=== PATIENT | male | born 1940 | race Caucasian/White ===

== ENCOUNTER 2018-06-07 19:09 | Inpatient (IN) | payer MEDICARE, BC ==
[~2018-06-07] VITALS: Ht 177.8 cm; Wt 109.9 kg
--- NOTE | 2018-06-07 19:19 | ED.ADGEN ---
Past History Past Medical History: Dementia, Depression, Hypertension, Prostatitis, Other Adult General Chief Complaint Chief Complaint "...They sent me over to get checked out..." HPI HPI Patient is a 78 year old male from [facility] who presents with hx of mental status changes. Pt. has been a resident of [facility] since 10-13-17. Pt. has become very verbally abusive to staff and other residents. Pt. has been hitting staff, throwing plates at staff. Disruptive behavior has become more severe since Apr. Pt. has hx of Parkinson, ploy neuropathy, MDD, Dementia( Possible Lewy Body), HTN, and depression. Pt. has hx Prostate enlargement, chronic pain, multiple falls with rib fractures. Hx. of CHF diastolic dysfunction. Hx. Rt. hip fx. and gait dysfunction. Pt. seems to be having delusions . Pt. Primary is Dr. Medina, Neurologist Dr. Guillory. Review of Systems Review of Systems No current complaints Constitutional: Denies fever or chills [] Eyes: Denies change in visual acuity, redness, or eye pain [] HENT: Denies nasal congestion or sore throat [] Respiratory: Denies cough or shortness of breath [] Cardiovascular: No additional information not addressed in HPI [] GI: Denies abdominal pain, nausea, vomiting, bloody stools or diarrhea [] : Denies dysuria or hematuria [] Musculoskeletal: Denies back pain or joint pain [] Integument: Denies rash or skin lesions [] Neurologic: Denies headache, focal weakness or sensory changes [] Endocrine: Denies polyuria or polydipsia [] All other systems were reviewed and found to be within normal limits, except as documented in this note. Family History Family History Not currently available. Current Medications Current Medications Current Medications Medications (Trade) Dose Ordered Sig/Uma Start Time Stop Time Status Last Admin Dose Admin Lactated Ringer's 1,000 ml @ 100 mls/hr Q10H 06/07/18 19:28 06/08/18 05:27 DC Allergies Allergies Allergies Coded Allergies Type Severity Reaction Last Updated Verified No Known Drug Allergies 06/07/18 No Physical Exam Physical Exam Constitutional: , no acute distress, non-toxic appearance. [] HENT: Normocephalic, atraumatic, bilateral external ears normal, oropharynx moist, no oral exudates, nose normal. [] Eyes: PERRLA, EOMI, conjunctiva normal, no discharge. [] Neck: Normal range of motion, no tenderness, supple, no stridor. [] Cardiovascular:Bradycardia Heart rate regular rhythm, no murmur [] Lungs & Thorax: Bilateral breath sounds equal at apex with basilar crackles on auscultation [] Abdomen: Bowel sounds normal, soft, no tenderness, no masses, no pulsatile masses. [Obese. ] Skin: Warm, dry, no erythema, no rash. [] Back: No tenderness, no CVA tenderness. [] Extremities: No tenderness, no cyanosis, no clubbing, ROM intact, ankle edema. [ ] L.t hip scar. Neurologic: Alert and oriented X 3, moves all ext. on request,decrease plantar sensory , no focal deficits noted. []Tremor. Psychologic: Affect anxious, judgement limited insight, mood depressed. At times angry demeanor. Current Patient Data Vital Signs Vital Signs Date Time Temp Pulse Resp B/P (MAP) Pulse Ox O2 Delivery O2 Flow Rate FiO2 06/07/18 23:20 66 18 137/66 (89) 95 Room Air Lab Results Laboratory Tests Test 06/07/18 20:18 06/07/18 20:51 White Blood Count 8.1 x10^3/uL (4.0-11.0) Red Blood Count 3.84 x10^6/uL (4.30-5.70) L Hemoglobin 13.0 g/dL (13.0-17.5) Hematocrit 37.8 % (39.0-53.0) L Mean Corpuscular Volume 98 fL (79-100) Mean Corpuscular Hemoglobin 34 pg (25-35) Mean Corpuscular Hemoglobin Concent 35 g/dL (31-37) Red Cell Distribution Width 14.7 % (11.5-14.5) H Platelet Count 235 x10^3/uL (140-400) Neutrophils (%) (Auto) 68 % (31-73) Lymphocytes (%) (Auto) 22 % (24-48) L Monocytes (%) (Auto) 7 % (0-9) Eosinophils (%) (Auto) 3 % (0-3) Basophils (%) (Auto) 1 % (0-3) Neutrophils # (Auto) 5.5 x10^3uL (1.8-7.7) Lymphocytes # (Auto) 1.8 x10^3/uL (1.0-4.8) Monocytes # (Auto) 0.6 x10^3/uL (0.0-1.1) Eosinophils # (Auto) 0.2 x10^3/uL (0.0-0.7) Basophils # (Auto) 0.1 x10^3/uL (0.0-0.2) Erythrocyte Sedimentation Rate 6 (0-15) Prothrombin Time 10.4 SEC (9.4-11.4) Prothrombin Time INR 1.0 (0.9-1.1) PTT 25 SEC (23-33) Sodium Level 140 mmol/L (136-145) Potassium Level 3.9 mmol/L (3.5-5.1) Chloride Level 103 mmol/L (98-107) Carbon Dioxide Level 29 mmol/L (21-32) Anion Gap 8 (6-14) Blood Urea Nitrogen 19 mg/dL (8-26) Creatinine 0.8 mg/dL (0.7-1.3) Estimated GFR (Cockcroft-Gault) 93.3 Glucose Level 121 mg/dL (70-99) H Calcium Level 9.0 mg/dL (8.5-10.1) Magnesium Level 2.0 mg/dL (1.8-2.4) Total Bilirubin 0.3 mg/dL (0.2-1.0) Direct Bilirubin < 0.1 mg/dL (0.0-0.2) Aspartate Amino Transferase (AST) 17 U/L (15-37) Alanine Aminotransferase (ALT) 9 U/L (16-63) L Alkaline Phosphatase 83 U/L (46-116) Creatine Kinase 47 U/L (39-308) Troponin I Quantitative < 0.017 ng/mL (0-0.055) HU-Bza-S-Type Natriuretic Peptide 186 pg/mL (0-449) Total Protein 6.3 g/dL (6.4-8.2) L Albumin 3.2 g/dL (3.4-5.0) L Lipase 90 U/L (73-393) Urine Collection Type Unknown Urine Color Yellow Urine Clarity Clear Urine pH 7.0 Urine Specific Brush 1.020 Urine Protein Neg (NEG-TRACE) Urine Glucose (UA) Neg mg/dL (NEG) Urine Ketones (Stick) Neg mg/dL (NEG) Urine Blood Neg (NEG) Urine Nitrite Neg (NEG) Urine Bilirubin Neg (NEG) Urine Urobilinogen Dipstick 1 mg/dL (0.2 mg/dL) Urine Leukocyte Esterase Neg (NEG) Urine RBC Occ /HPF (0-2) Urine WBC Occ /HPF (0-4) Urine Squamous Epithelial Cells Occ /LPF Urine Renal Epithelial Cells Occ /LPF Urine Bacteria Few /HPF (0-FEW) Urine Opiates Screen Neg (NEG) Urine Methadone Screen Neg (NEG) Urine Barbiturates Neg (NEG) Urine Phencyclidine Screen Neg (NEG) Urine Amphetamine/Methamphetamine Neg (NEG) Urine Benzodiazepines Screen Neg (NEG) Urine Cocaine Screen Neg (NEG) Urine Cannabinoids Screen Neg (NEG) Urine Ethyl Alcohol Neg (NEG) EKG EKG My interpretation EKG shows a sinus rhythm at 65. An leftward axis changes. No findings acute STEMI of contralateral changes.[] Radiology/Procedures Radiology/Procedures My interpretation of chest x-ray shows chest x-ray shows borderline cardiomegaly. Findings of old rib fractures. No free air in the diaphragm. My interpretation of CT of head shows no shift, mass, edema, bleed,. Does have chronic changes.[] Course & Med Decision Making Course & Med Decision Making Pertinent Labs and Imaging studies reviewed. (See chart for details) Pt. to be admitted to Dr. Lagunas and Consult to Dr. Flannery- for medical issues. [] Final Impression Final Impression 1. Mental status change[] 2. Aggressive behavior 3. Diabetes 4. Dementia 5. Polyneuropathy 6. Parkinson's 7. History of urinary retention 8. Hx. Frequent falls Dragon Disclaimer Dragon Disclaimer This electronic medical record was generated, in whole or in part, using a voice recognition dictation system. JORY BHATIA MD Jun 07, 2018 19:18
[2018-06-07] MEDS: IV RINGERS SOLUTION,LACTATED 1,000 ML IV SCH ×2 (19:28→22:27)
--- NOTE | 2018-06-07 19:38 | EKG ---
[address] [address] Test Date: 2018-06-07 Test Time: 19:18:52 Pat Name: TERA MARQUEZ Department: Room: Gender: M High Reach Operator: : 1940 Requested By: JORY BHATIA Order Number: [id number] Reading MD: Dimitrios Martel Measurements Intervals Ewen Rate: 65 P: 48 NJ: 174 QRS: -28 QRSD: 100 T: 54 QT: 396 QTc: 413 Interpretive Statements SINUS RHYTHM LEFTWARD AXIS Electronically Signed On 06-08-2018 14:31:08 [employer]INE [employer] by Dimitrios Martel
--- NOTE | 2018-06-07 20:14 | RAD ---
CT HEAD WO CONTRAST dated 06/07/2018 7:55 PM Indication: Altered mental status.AMS. Comparison: No comparison is available. Technique: Contiguous axial imaging the head was performed from skull base to vertex. No contrast administered. One or more of the following individualized dose reduction techniques were utilized for this examination: 1. Automated exposure control 2. Adjustment of the mA and/or kV according to patient size 3. Use of iterative reconstruction technique Findings: Ventricles and sulci are mildly prominent for age. No midline shift or mass effect. Mild patchy low density in the deep/subcortical periventricular white matter. No hemorrhage or extra axial collection. Posterior fossa and brainstem unremarkable. Visualized paranasal sinuses and mastoid air cells are clear. No apparent calvarial abnormality. IMPRESSION: 1. No evidence of acute intracranial hemorrhage or mass. 2. Mild chronic small vessel ischemic changes and atrophy. Electronically signed by: Angelito Moody MD (06/07/2018 8:11 PM) [facility]
--- NOTE | 2018-06-07 20:15 | RAD ---
PORTABLE CHEST 1V dated 06/07/2018 7:03 PM. Comparison: None. Clinical Indication: Altered mental status. Findings: Single upright portable exam performed. Heart and mediastinal contours are within normal limits. Lungs are clear without focal consolidation. Vascular interstitium within normal limits. No pleural effusion or pneumothorax. Old healed rib fractures on the left. Impression: No acute radiographic abnormality. Electronically signed by: Angelito Moody MD (06/07/2018 8:12 PM) [facility]
[2018-06-07 20:37] LABS: BASO # 0.1 x10^3/uL (0.0-0.2); BASO % 1 % (0-3); EOS # 0.2 x10^3/uL (0.0-0.7); EOS % 3 % (0-3); HEMATOCRIT 37.8 % (39.0-53.0); LYMPH # 1.8 x10^3/uL (1.0-4.8); LYMPH % 22 % (24-48); MEAN CORPUSCULAR HEMOGLOBIN 34 pg (25-35); MEAN CORPUSCULAR HGB CONC 35 g/dL (31-37); MEAN CORPUSCULAR VOLUME 98 fL (79-100); MONO # 0.6 x10^3/uL (0.0-1.1); MONO % 7 % (0-9); NEUT # 5.5 x10^3uL (1.8-7.7); NEUT % 68 % (31-73); PLATELET COUNT 235 x10^3/uL (140-400); RED BLOOD COUNT 3.84 x10^6/uL (4.30-5.70); RED CELL DISTRIBUTION WIDTH 14.7 % (11.5-14.5); WHITE BLOOD COUNT 8.1 x10^3/uL (4.0-11.0)
[2018-06-07 20:59] LABS: ALBUMIN 3.2 g/dL (3.4-5.0); ALK PHOS 83 U/L (46-116); ALT (SGPT) 9 U/L (16-63); ANION GAP 8 (6-14); AST (SGOT) 17 U/L (15-37); BLOOD UREA NITROGEN 19 mg/dL (8-26); CARBON DIOXIDE 29 mmol/L (21-32); CHLORIDE 103 mmol/L (98-107); CREATININE 0.8 mg/dL (0.7-1.3); GFR 93.3; GLUCOSE 121 mg/dL (70-99); LIPASE 90 U/L (73-393); POTASSIUM 3.9 mmol/L (3.5-5.1); SODIUM 140 mmol/L (136-145); TOTAL BILIRUBIN 0.3 mg/dL (0.2-1.0); TOTAL PROTEIN 6.3 g/dL (6.4-8.2)
[2018-06-07 21:01] LABS: DIRECT BILIRUBIN < 0.1 mg/dL (0.0-0.2)
[2018-06-07 21:41] LABS: BARBITURATES NEG (NEG); BENZODIAZEPINES NEG (NEG); CANNABINOIDS NEG (NEG); COCAINE NEG (NEG); METHADONE NEG (NEG); OPIATES NEG (NEG); PHENCYCLIDINE NEG (NEG)
[2018-06-07 21:44] LABS: AMPHETAMINE/METHAMPHETAMINE NEG (NEG)
[2018-06-07 21:48] LABS: BACTERIA,URINE FEW /HPF (0-FEW); BILIRUBIN,URINE NEG (NEG); CLARITY,URINE CLEAR; COLOR,URINE YELLOW; GLUCOSE,URINE NEG (NEG); NITRITE,URINE NEG (NEG); RBC,URINE OCC /HPF (0-2); SQUAMOUS EPITHELIAL CELL,UR OCC /LPF; UROBILINOGEN,URINE 1 mg/dL (0.2 mg/dL); WBC,URINE OCC /HPF (0-4)
[2018-06-07 21:50] LABS: SEDIMENTATION RATE 6 (0-15)
[2018-06-08] MEDS ORDERED: MAGNESIUM HYDROXIDE 2,400 MG/30 ML ORAL.SUSP. PO PRN (00:30)
[2018-06-08] MEDS ORDERED: METHYL SALICYLATE/MENTHOL TOPICAL OINTMENT 29GM TUBE. TP PRN (00:30)
[2018-06-08] MEDS ORDERED: MAG HYDROX/AL HYDROX/SIMETH 30 ML ORAL.SUSP PO PRN (00:30)
[2018-06-08 00:37] VITALS: BP 151/83
[2018-06-08] MEDS ORDERED: ATOR20TA58 PO (01:05)
[2018-06-08] MEDS ORDERED: FURO-68 PO (01:05)
[2018-06-08] MEDS ORDERED: ASPI81TA50 PO (01:05)
[2018-06-08] MEDS ORDERED: GUAI473L15 PO (01:05)
[2018-06-08] MEDS ORDERED: OXYC5CAP PO (01:05)
[2018-06-08] MEDS ORDERED: NEPA3DRO OP (01:05)
[2018-06-08] MEDS ORDERED: POLY17PO5 PO ×2 (01:05)
[2018-06-08] MEDS ORDERED: CARB1TAB2 PO (01:05)
[2018-06-08] MEDS ORDERED: SPIR25TA5 PO (01:05)
[2018-06-08] MEDS ORDERED: VITA1TAB3 PO (01:05)
[2018-06-08] MEDS ORDERED: DULO60CA6 PO (01:05)
[2018-06-08] MEDS ORDERED: GABA-585 PO (01:05)
[2018-06-08] MEDS ORDERED: SENN1TAB8 PO (01:05)
[2018-06-08] MEDS ORDERED: PRED1DRO OP (01:05)
[2018-06-08] MEDS ORDERED: MULT1TAB52 PO (01:05)
[2018-06-08] MEDS ORDERED: DONE5TAB56 PO (01:05)
[2018-06-08] MEDS ORDERED: OLAN5TAB5 PO (01:05)
[2018-06-08] MEDS ORDERED: ACET500T68 PO (01:05)
[2018-06-08] MEDS ORDERED: TAMS0.4C2 PO (01:05)
[2018-06-08] MEDS ORDERED: MELO7.5T29 PO (01:05)
[2018-06-08] MEDS ORDERED: ACETAMINOPHEN 500 MG TABLET PO PRN (01:15)
[2018-06-08] MEDS ORDERED: POLYETHYLENE GLYCOL 3350 17 GM PACKET. PO PRN (01:15)
[2018-06-08 06:02] VITALS: BP 164/82
[2018-06-08 07:21] LABS: BASO % 1 % (0-3); EOS # 0.1 x10^3/uL (0.0-0.7); EOS % 2 % (0-3); HEMOGLOBIN 13.8 g/dL (13.0-17.5); LYMPH % 14 % (24-48); MEAN CORPUSCULAR HEMOGLOBIN 33 pg (25-35); MEAN CORPUSCULAR HGB CONC 34 g/dL (31-37); MEAN CORPUSCULAR VOLUME 98 fL (79-100); MONO # 0.4 x10^3/uL (0.0-1.1); MONO % 6 % (0-9); NEUT # 5.4 x10^3uL (1.8-7.7); NEUT % 77 % (31-73); PLATELET COUNT 229 x10^3/uL (140-400); RED BLOOD COUNT 4.17 x10^6/uL (4.30-5.70); RED CELL DISTRIBUTION WIDTH 14.2 % (11.5-14.5)
[2018-06-08 07:21] LABS: CALCIUM 9.5 mg/dL (8.5-10.1); CREATININE 0.9 mg/dL (0.7-1.3); GFR 81.4; POTASSIUM 4.4 mmol/L (3.5-5.1)
[2018-06-08] MEDS: TAMSULOSIN 0.4 MG CAP.ER.24H. PO SCH (10:16)
[2018-06-08] MEDS: VITAMIN B COMPLEX CAPSULE. PO SCH (10:16)
[2018-06-08] MEDS: SPIRONOLACTONE 25 MG TABLET PO SCH (10:16)
[2018-06-08] MEDS: FUROSEMIDE 40 MG TABLET PO SCH (10:16)
[2018-06-08] MEDS: SENNOSIDES/DOCUSATE 8.6/50MG TABLET. PO SCH (10:16)
[2018-06-08] MEDS: MULTIVITAMIN with MINERAL TABLET. PO SCH (10:16)
[2018-06-08] MEDS: GABAPENTIN 100 MG CAPSULE. PO SCH ×3 (10:17→19:31)
[2018-06-08] MEDS: MELOXICAM 7.5 MG TABLET PO SCH (10:17)
[2018-06-08] MEDS: ASPIRIN 81 MG TAB.CHEW PO SCH (10:17)
[2018-06-08] MEDS: DULoxetine HCL 60 MG CAPSULE.DR PO SCH (10:17)
[2018-06-08] MEDS: CARBIDOPA/LEVODOPA 25/100MG TABLET PO SCH ×4 (10:17→19:31)
[2018-06-08] MEDS: prednisoLONE ACETATE 1% OPHTH SUSPENSION 5ML BOTTLE. OS SCH ×2 (10:18→19:31)
[2018-06-08] MEDS: POLYETHYLENE GLYCOL 3350 17 GM PACKET. PO SCH (10:18)
[2018-06-08] MEDS: KETOROLAC TROMETHAMINE 0.5% OPHTH SOLUTION 3ML BOTTLE. OS SCH (10:19)
[2018-06-08 16:02] VITALS: BP 129/69
[2018-06-08 17:12] LABS: THYROXINE 4.5 ug/dL (4.5-12.0)
[2018-06-08] MEDS: ATORVASTATIN CALCIUM 20 MG TABLET PO SCH (20:02)
[2018-06-08] MEDS: DONEPEZIL HCL 5 MG TABLET. PO SCH (20:02)
[2018-06-08 21:09] LABS: HEMOGLOBIN A1C 5.4 % (4.8-5.6)
--- NOTE | 2018-06-08 23:52 | CONS ---
DATE OF CONSULTATION: 06/08/2018 REASON FOR CONSULTATION: Medical management. HISTORY OF PRESENT ILLNESS: The patient is a 78-year-old male patient, a resident at [facility], who was admitted on account of being verbally aggressive towards staff. He has begun to act out, hitting staff with a pillow, history of throwing plates, calling visitors cunt. 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 When I spoke to him this afternoon, he was very delusional, claimed that he has paid the shelter $6000 every month for the last 8 months and he has received only 3 hours' worth of physical therapy. He apparently has left hip fracture, peripheral neuropathy, and Parkinson disease and his mobility is poor. He is now wheelchair bound. He denied any pain. PAST MEDICAL HISTORY: Significant for Parkinson's disease, polyneuropathy, hypertension, hyperlipidemia, benign prostatic hypertrophy, congestive heart failure, urinary retention, and recurrent falls. PAST SURGICAL HISTORY: Significant for left hip fracture, status post open reduction and internal fixation. 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 He has major depressive disorder. ALLERGIES: He is allergic to FENTANYL. MEDICATIONS: He is currently on following medications: He is on Aricept 5 mg at bedtime, tamsulosin 0.4 mg daily, atorvastatin calcium 20 mg at bedtime, spironolactone 25 mg once a day, aspirin 81 mg once a day, meloxicam 7.5 mg once a day, oxycodone 5 mg every 6 hours as needed, Tylenol 500 mg every 6 hours, gabapentin 100 mg p.o. t.i.d., duloxetine for Cymbalta 60 mg p.o. daily, olanzapine mg at bedtime, carbidopa/levodopa for Sinemet 25/100 one tablet 4 times a day, furosemide for Lasix 40 mg daily. He is on guaifenesin and codeine phosphate 2 tablets every 6 hours, prednisolone acetate, Pred Forte 1 drop to both eyes twice a day. He is on nepafenac for Nevanac 1 drop to both eyes daily, polyethylene glycol 17 grams daily every 48 hours, polyethylene glycol as needed, Senna-S 1 tablet daily, vitamin B complex 1 tablet once a day, multivitamin 1 tablet once a day. FAMILY HISTORY: Unremarkable. SOCIAL HISTORY: He is apparently a resident at [facility] in [place]. He apparently does not smoke, drink alcohol, or use any recreational drugs. REVIEW OF SYSTEMS: As per history of present illness. PHYSICAL EXAMINATION GENERAL: When I examined him, he was sitting comfortably in his wheelchair, in no apparent respiratory distress. He was slightly pale, but no jaundice, cyanosis, or thyromegaly. No jugular venous distension. No limb edema. VITAL SIGNS: His heart rate was 59, blood pressure was 164/82, his temperature was 97.6, respiratory rate was 18, and oxygen saturation was 98%. HEAD, EYES, EARS, NOSE, AND THROAT: Showed he is normocephalic, atraumatic. NECK: Supple. HEART: Showed normal first and second sounds. No gallop, rub, or murmur. CHEST: Clear to auscultation. No crepitation or rhonchi. ABDOMEN: Distended, soft, nontender. No guarding or rigidity. No organomegaly. All hernial orifice intact. Bowel sounds normal. NEUROLOGIC: He is awake, alert, confused. All his cranial nerves are intact. He is able to move his upper extremities to much good extent than lower extremities. He is mostly bedbound, chair bound. He has Apoorva lift. LABORATORY DATA: On admission showed a white cell count of 7000, hemoglobin 13.8, hematocrit 41, MCV 98, and platelet count 229,000. His chemistry showed a serum sodium 140, potassium 3.9, chloride 103, bicarbonate 29, anion gap of 8, BUN 19, creatinine 0.8, estimated GFR was 93 mL per minute, his glucose was 121, calcium was 9, magnesium 2. Total bilirubin, AST, ALT, alkaline phosphatase were normal. His CK was 47. His total protein was 6.3, albumin 3.2. His prothrombin time was 10.4, INR of 1, aPTT was 25. Urinalysis was essentially unremarkable. The urine was negative for nitrite, leukocyte esterase. There are no rbc's, no wbc's, and no bacteria. His toxic screen was essentially negative. CT scan of the head showed that the ventricles and sulci are mildly prominent for age. No midline shift or mass effect, mild patchy low density in the deep subcortical periventricular white matter, no hemorrhage or extra-axial collection. Posterior fossa and brainstem are unremarkable. The visualized paranasal sinuses and mastoid air cells are clear, no apparent calvarial abnormality. His chest x-ray showed that the heart and mediastinum contours are within normal limits. Lungs are clear without focal consolidation, vascular interstitium within normal limits. There is no pleural effusion or pneumothorax. Old healed rib fractures on the left side. IMPRESSION: In summary, this is a 78-year-old male patient, a resident at [facility] who was admitted on account of being verbally aggressive towards staff, has begun to act out, hitting staff with a pillow, history of throwing plates and calling visitor . 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 He has multiple medical problems including hypertension, hyperlipidemia, congestive heart failure, Parkinson's disease, and polyneuropathy. 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 He is mostly bedbound, chair bound. He has a Apoorva lift. He apparently has severe peripheral neuropathy, Parkinson's disease as well as left hip fracture. All his lab works are within acceptable range, and all in all, he is medically stable. I obviously will continue with all his current medication. We will order PT, OT and consult Dr. Robertson as he might require adjustment of his anti-parkinsonian medication to assist with to improve his mobility. DONNA SENA MD DR: ANJELICA/yovani JOB#: [id number] / [id number]
--- NOTE | 2018-06-09 02:33 | PSYEV ---
DATE OF SERVICE: 06/08/2018 REASON FOR ADMISSION: This is a 78-year-old male who was admitted to unit [facility] from [place], [place], because of increased behavior problems, verbally aggressive towards the staff, also threatening to staff, hitting one of the staff with a pillow, throwing plates, and verbally abusive towards the staff. The patient denies that he has any problems. CHIEF COMPLAINT: "My and my son sent me here and I should not be here, and I should be going home. They are trying to keep me in the shelter to make money and I do not trust anyone." HISTORY OF PRESENT ILLNESS: According to the information available, he has been diagnosed with dementia with Lewy body disease, also depression and currently is living with his . Apparently, the patient has been seeing a neurologist, had placed him in treatment for his dementia. The patient states he has been very successful. He worked for a [employer] company, retired in 1997 and has been for 55 years and has 2 children. The patient apparently had a full workup in the past including CT head, which are all within normal limits except for cerebral atrophy and microvascular changes. The patient denies of any falls. The patient is fairly heavy set and he needs Apoorva lift. The patient since admission has been demanding minimizing his problems. When he was asked about his problems, he becomes very paranoid and he thinks he is a part of the plot to send him back to the shelter where he has to pay $6000 a month. The patient feels it is a setup for the whole system to make money out of him. The patient had showed poor concept of time. He did not know how many days he was here. PAST PSYCHIATRIC HISTORY: The patient is unable to give much information. Apparently, he has been seeing a neurologist. Apparently, he did make some changes recently. He has been diagnosed with the neurocognitive disorder, most likely Lewy body Type. PAST MEDICAL HISTORY: The patient has Parkinson's disease, polyneuropathy, hypertension. CURRENT MEDICATIONS: Include Carbidopa/Levodopa 25-100 mg 4 times a day, Aricept 5 mg at night, Cymbalta 60 mg daily, Lasix 40 mg daily, gabapentin 100 mg t.i.d. He is also on meloxicam 7.5 mg daily, olanzapine 5 mg at night, prednisone acetate drops b.i.d, spironolactone 25 mg daily, tamsulosin 0.4 mg q. 24 hours, vitamin B complex. ALLERGIES: THE PATIENT IS ALLERGIC TO FENTANYL. ALCOHOL OR DRUG ABUSE: The patient admits to drinking socially. Denies of any alcoholism. Denies of any other addictions. PSYCHOSOCIAL HISTORY: The patient is refusing to diverge much information because of his paranoia. The patient apparently has a college degree. 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 The patient states he has been for 55 years, has 2 children. The patient denies of abuse as a child. The patient is retired, currently living with his . The patient claims he has a good relationship with his two children as a boy and a girl. MENTAL STATUS EXAMINATION: The patient appeared to be of stated age, appropriately dressed, was on Broda chair, able to make eye contact. Alert, oriented to surroundings, able to make eye contact. His behavior was appropriate initially, then become very angry, paranoid after he was asked about to behavior problems that brought him here. The patient became extremely paranoid and suspicious. His speech was clear, spontaneous with normal rate and rhythm. Affect and mood showed mostly hyperverbal increased psychomotor activity, not showing much insight to his problems. The patient denies that he has any problems with his memory, he is able to achieve the correct month and the year, but he had poor concept of time, apparently came in yesterday, but he thought that he has been here for a few days. The patient is able to recall past events fairly well, but the patient has short-term memory deficits. The patient refused to participate in any testing for the mental status. The patient has difficulty with ambulation. The patient denies of any problems with sleep or appetite. The patient appears to be functioning on an average level of intelligence. STRENGTHS: In good health. Apparently, he was fully employed until he retired. Has a family, still living with his , who was supportive. WEAKNESSES: The patient is currently not accepting that he has a problem. He has problems with mood, memory mostly short term, and also behavioral issues, explosive temper, demanding, lack of insight. ADMITTING DIAGNOSES: AXIS I: 1. 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 2. Mood disorder, unspecified. 3. Impulse control disorder, not otherwise specified. AXIS II: None. AXIS III: Parkinson's disease, polyneuropathy, hypertension, obesity. INITIAL TREATMENT PLAN: The patient will be admitted to the unit. The patient will have a routine lab work. The patient will be also seen by the primary care doctor. The patient apparently had most of the test done before including CT scan of the head and it will not be repeated here. The patient will be encouraged to attend all the activities. The patient will be seen by the psychiatrist daily. The patient will continue with the current medications. LENGTH OF STAY: 7 to 10 days. XAVI HALE MD DR: Marylin JOB#: [id number] / [id number]
[2018-06-09 05:33] VITALS: BP 129/85
[2018-06-09] MEDS: VITAMIN B COMPLEX CAPSULE. PO SCH (08:28)
[2018-06-09] MEDS: SPIRONOLACTONE 25 MG TABLET PO SCH (08:28)
[2018-06-09] MEDS: ASPIRIN 81 MG TAB.CHEW PO SCH (08:28)
[2018-06-09] MEDS: DULoxetine HCL 60 MG CAPSULE.DR PO SCH (08:28)
[2018-06-09] MEDS: TAMSULOSIN 0.4 MG CAP.ER.24H. PO SCH (08:29)
[2018-06-09] MEDS: GABAPENTIN 100 MG CAPSULE. PO SCH ×3 (08:29→19:43)
[2018-06-09] MEDS: SENNOSIDES/DOCUSATE 8.6/50MG TABLET. PO SCH (08:29)
[2018-06-09] MEDS: MELOXICAM 7.5 MG TABLET PO SCH (08:29)
[2018-06-09] MEDS: FUROSEMIDE 40 MG TABLET PO SCH (08:29)
[2018-06-09] MEDS: CARBIDOPA/LEVODOPA 25/100MG TABLET PO SCH ×4 (08:29→19:43)
[2018-06-09] MEDS: MULTIVITAMIN with MINERAL TABLET. PO SCH (08:30)
[2018-06-09] MEDS: prednisoLONE ACETATE 1% OPHTH SUSPENSION 5ML BOTTLE. OS SCH ×2 (08:30→19:42)
[2018-06-09] MEDS: KETOROLAC TROMETHAMINE 0.5% OPHTH SOLUTION 3ML BOTTLE. OS SCH (08:30)
[2018-06-09 15:36] VITALS: BP 116/73
[2018-06-09] MEDS: DONEPEZIL HCL 5 MG TABLET. PO SCH (19:43)
[2018-06-09] MEDS: ATORVASTATIN CALCIUM 20 MG TABLET PO SCH (19:43)
--- NOTE | 2018-06-09 20:00 | PN ---
DATE: 06/09/2018 SUBJECTIVE: The patient was seen today, met with the staff, and chart reviewed. The patient's behavior remains the same, fluctuating symptoms, get paranoid and suspicious at times. He does not like to be questioned, tend to be very demanding. OBSERVATION: VITAL SIGNS: Temperature 97.3, blood pressure 119/85, pulse 57, respirations 24, O2 sat 94%. Slept about 7 hours last night. The patient's appetite improved. The patient is cooperative with the staff and has been on compliant with the treatment and interacting with the staff and residents. The patient's lab reviewed. The patient's hemoglobin A1c was 5.4. The patient is not having any major physical complaints at this time. CURRENT MEDICATIONS: Include Lipitor 20 mg at night, Aricept 5 mg at night, olanzapine 5 mg at night. The patient was also on gabapentin 100 mg t.i.d. He is also on carbidopa/levodopa 1 q.i.d. p.o. for Parkinson's. The patient is also on Cymbalta 60 mg daily. The patient is able to interact, able to comprehend what is going on in the surroundings. The patient also lacking insight to his problems. The patient also has episodes of confusion. ASSESSMENT: 1. 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 2. Mood disorder, unspecified. 3. Impulse control disorder, not otherwise specified. PLAN: To continue with the current treatment. XAVI HALE MD DR: JAMAL/yovani JOB#: [id number] / [id number]
[2018-06-10 05:30] VITALS: BP 135/80
[2018-06-10] MEDS: FUROSEMIDE 40 MG TABLET PO SCH (08:17)
[2018-06-10] MEDS: MELOXICAM 7.5 MG TABLET PO SCH (08:18)
[2018-06-10] MEDS: GABAPENTIN 100 MG CAPSULE. PO SCH ×3 (08:18→19:59)
[2018-06-10] MEDS: VITAMIN B COMPLEX CAPSULE. PO SCH (08:18)
[2018-06-10] MEDS: CARBIDOPA/LEVODOPA 25/100MG TABLET PO SCH ×4 (08:19→19:59)
[2018-06-10] MEDS: ASPIRIN 81 MG TAB.CHEW PO SCH (08:19)
[2018-06-10] MEDS: SENNOSIDES/DOCUSATE 8.6/50MG TABLET. PO SCH (08:19)
[2018-06-10] MEDS: SPIRONOLACTONE 25 MG TABLET PO SCH (08:19)
[2018-06-10] MEDS: MULTIVITAMIN with MINERAL TABLET. PO SCH (08:19)
[2018-06-10] MEDS: POLYETHYLENE GLYCOL 3350 17 GM PACKET. PO SCH (08:19)
[2018-06-10] MEDS: TAMSULOSIN 0.4 MG CAP.ER.24H. PO SCH (08:19)
[2018-06-10] MEDS: prednisoLONE ACETATE 1% OPHTH SUSPENSION 5ML BOTTLE. OS SCH ×2 (08:20→20:00)
[2018-06-10] MEDS: DULoxetine HCL 60 MG CAPSULE.DR PO SCH (08:20)
[2018-06-10] MEDS: KETOROLAC TROMETHAMINE 0.5% OPHTH SOLUTION 3ML BOTTLE. OS SCH (08:21)
[2018-06-10 17:09] VITALS: BP 109/72
[2018-06-10] MEDS: ATORVASTATIN CALCIUM 20 MG TABLET PO SCH (19:59)
[2018-06-10] MEDS: DONEPEZIL HCL 5 MG TABLET. PO SCH (19:59)
--- NOTE | 2018-06-10 20:22 | PN ---
DATE: 06/10/2018 SUBJECTIVE: The patient was seen today, met with the staff, chart reviewed. The patient apparently has not shown any major behavior problems as long as he is left alone, but the patient sometimes gets mixed up with his thinking, gets paranoid, not accepting that he has a problem, lacking insight. OBSERVATION: VITAL SIGNS: Temperature 97.7, blood pressure 135/80, pulse 64, respirations 20, O2 sat 94%. Slept about 7-1/2 hours last night. CURRENT MEDICATIONS: The patient's current medications include Aricept, olanzapine, gabapentin, Cymbalta in addition to carbidopa/levodopa and Lipitor. The patient is not having any side effects. ASSESSMENT: 1. 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 2. Mood disorder, unspecified. 3. Impulse control disorder, unspecified. PLAN: Continue with the current treatment. XAVI HALE MD DR: JAMAL/yovani JOB#: [id number] / [id number]
[2018-06-10] MEDS: guaiFENesin/CODEINE 100mg/10mg 5 ML LIQUID PO PRN (22:09)
[2018-06-11 06:33] VITALS: BP 143/78
[2018-06-11] MEDS: KETOROLAC TROMETHAMINE 0.5% OPHTH SOLUTION 3ML BOTTLE. OS SCH (09:02)
[2018-06-11] MEDS: ASPIRIN 81 MG TAB.CHEW PO SCH (09:02)
[2018-06-11] MEDS: DULoxetine HCL 60 MG CAPSULE.DR PO SCH (09:03)
[2018-06-11] MEDS: VITAMIN B COMPLEX CAPSULE. PO SCH (09:03)
[2018-06-11] MEDS: SPIRONOLACTONE 25 MG TABLET PO SCH (09:03)
[2018-06-11] MEDS: prednisoLONE ACETATE 1% OPHTH SUSPENSION 5ML BOTTLE. OS SCH ×2 (09:03→20:05)
[2018-06-11] MEDS: MELOXICAM 7.5 MG TABLET PO SCH (09:04)
[2018-06-11] MEDS: CARBIDOPA/LEVODOPA 25/100MG TABLET PO SCH ×4 (09:04→20:05)
[2018-06-11] MEDS: MULTIVITAMIN with MINERAL TABLET. PO SCH (09:04)
[2018-06-11] MEDS: GABAPENTIN 100 MG CAPSULE. PO SCH ×3 (09:04→20:05)
[2018-06-11] MEDS: SENNOSIDES/DOCUSATE 8.6/50MG TABLET. PO SCH (09:04)
[2018-06-11] MEDS: FUROSEMIDE 40 MG TABLET PO SCH (09:04)
[2018-06-11] MEDS: TAMSULOSIN 0.4 MG CAP.ER.24H. PO SCH (09:04)
[2018-06-11] MEDS: guaiFENesin/CODEINE 100mg/10mg 5 ML LIQUID PO PRN ×2 (09:29→21:32)
[2018-06-11] MEDS: CHOLECALCIFEROL (VITAMIN D3) 50,000 UNIT CAPSULE PO SCH (13:24)
[2018-06-11 16:11] VITALS: BP 116/65
[2018-06-11] MEDS: DONEPEZIL HCL 5 MG TABLET. PO SCH (20:05)
[2018-06-11] MEDS: ATORVASTATIN CALCIUM 20 MG TABLET PO SCH (20:24)
--- NOTE | 2018-06-12 00:33 | PN ---
DATE: 06/11/2018 SUBJECTIVE: The patient was seen today, met with the staff, chart reviewed. The patient continues to show improvement and participating in most of the activities. Pleasant, less irritable and hoffman. No explosive temper. OBSERVATION: VITAL SIGNS: Temperature 98.1, blood pressure 143/78, pulse 67, respirations 24, O2 sat 94%. Slept about 7 hours last night. The patient is not having any side effects from the medications. He is currently on Aricept, olanzapine, gabapentin, Cymbalta. The patient is also on carbidopa/ levodopa and Lipitor. ASSESSMENT: 1. 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 2. Mood disorder, unspecified. 3. Impulse control disorder, unspecified. PLAN: To continue with the treatment. XAVI HALE MD DR: JAMAL/yovani JOB#: [id number] / [id number]
[2018-06-12 05:51] VITALS: BP 163/73
[2018-06-12] MEDS: TAMSULOSIN 0.4 MG CAP.ER.24H. PO SCH (08:37)
[2018-06-12] MEDS: VITAMIN B COMPLEX CAPSULE. PO SCH (08:37)
[2018-06-12] MEDS: MULTIVITAMIN with MINERAL TABLET. PO SCH (08:37)
[2018-06-12] MEDS: GABAPENTIN 100 MG CAPSULE. PO SCH ×3 (08:37→19:46)
[2018-06-12] MEDS: SPIRONOLACTONE 25 MG TABLET PO SCH (08:37)
[2018-06-12] MEDS: POLYETHYLENE GLYCOL 3350 17 GM PACKET. PO SCH (08:37)
[2018-06-12] MEDS: FUROSEMIDE 40 MG TABLET PO SCH (08:37)
[2018-06-12] MEDS: ASPIRIN 81 MG TAB.CHEW PO SCH (08:38)
[2018-06-12] MEDS: MELOXICAM 7.5 MG TABLET PO SCH (08:38)
[2018-06-12] MEDS: SENNOSIDES/DOCUSATE 8.6/50MG TABLET. PO SCH (08:38)
[2018-06-12] MEDS: CARBIDOPA/LEVODOPA 25/100MG TABLET PO SCH ×4 (08:38→19:46)
[2018-06-12] MEDS: DULoxetine HCL 60 MG CAPSULE.DR PO SCH (08:38)
[2018-06-12] MEDS: KETOROLAC TROMETHAMINE 0.5% OPHTH SOLUTION 3ML BOTTLE. OS SCH (08:41)
[2018-06-12] MEDS: prednisoLONE ACETATE 1% OPHTH SUSPENSION 5ML BOTTLE. OS SCH ×2 (08:41→19:48)
[2018-06-12 16:04] VITALS: BP 114/76
[2018-06-12] MEDS: DONEPEZIL HCL 5 MG TABLET. PO SCH (19:46)
[2018-06-12] MEDS: ATORVASTATIN CALCIUM 20 MG TABLET PO SCH (19:48)
[2018-06-12] MEDS: guaiFENesin/CODEINE 100mg/10mg 5 ML LIQUID PO PRN (21:32)
--- NOTE | 2018-06-12 23:25 | PN ---
DATE: 06/12/2018 SUBJECTIVE: The patient was seen today, met with the staff, chart reviewed. The patient denies of any major problems. The patient has settled down, is comfortable here, not exhibiting any anger or mood swings. Staff reports no major problems. OBSERVATION: VITAL SIGNS: Temperature 97.5, blood pressure 163/73, pulse 65, respirations 20, O2 sat 94%. Slept about 5 hours last night. The patient is not having any physical complaints. MEDICATIONS: The patient's current medications include Aricept, olanzapine, gabapentin and Cymbalta. He is also on carbidopa/levodopa for Parkinson's disease. The patient denies of any major medical issues at this time and his lab reviewed. ASSESSMENT: 1. Major neurocognitive disorder, most likely Lewy-body disease. 2. Mood disorder, unspecified. 3. Impulse control disorder, unspecified. PLAN: To continue with the treatment. I will explore discharge options whether he will be going back to [facility]. XAVI HALE MD DR: JAMAL/yovani JOB#: [id number] / [id number]
[2018-06-13 05:38] VITALS: BP 154/83
[2018-06-13] MEDS: FUROSEMIDE 40 MG TABLET PO SCH (08:51)
[2018-06-13] MEDS: TAMSULOSIN 0.4 MG CAP.ER.24H. PO SCH (08:51)
[2018-06-13] MEDS: CARBIDOPA/LEVODOPA 25/100MG TABLET PO SCH ×4 (08:51→19:32)
[2018-06-13] MEDS: MELOXICAM 7.5 MG TABLET PO SCH (08:52)
[2018-06-13] MEDS: VITAMIN B COMPLEX CAPSULE. PO SCH (08:52)
[2018-06-13] MEDS: SENNOSIDES/DOCUSATE 8.6/50MG TABLET. PO SCH (08:52)
[2018-06-13] MEDS: SPIRONOLACTONE 25 MG TABLET PO SCH (08:52)
[2018-06-13] MEDS: DULoxetine HCL 60 MG CAPSULE.DR PO SCH (08:52)
[2018-06-13] MEDS: ASPIRIN 81 MG TAB.CHEW PO SCH (08:52)
[2018-06-13] MEDS: MULTIVITAMIN with MINERAL TABLET. PO SCH (08:52)
[2018-06-13] MEDS: GABAPENTIN 100 MG CAPSULE. PO SCH ×3 (08:52→19:32)
[2018-06-13] MEDS: KETOROLAC TROMETHAMINE 0.5% OPHTH SOLUTION 3ML BOTTLE. OS SCH (08:53)
[2018-06-13] MEDS: prednisoLONE ACETATE 1% OPHTH SUSPENSION 5ML BOTTLE. OS SCH ×2 (08:53→19:32)
[2018-06-13 16:15] VITALS: BP 108/74
[2018-06-13] MEDS: DONEPEZIL HCL 5 MG TABLET. PO SCH (19:32)
[2018-06-13] MEDS: ATORVASTATIN CALCIUM 20 MG TABLET PO SCH (19:32)
--- NOTE | 2018-06-13 21:38 | PN ---
DATE: 06/13/2018 SUBJECTIVE: The patient was seen today, met with the staff, chart reviewed. The patient apparently has been irritable, hoffman today. Staff reports that he is very angry with the staff, refusing cares and staying like that most of the day. The patient is not able to give any explanation except stating and he would rather be at home than being here. The patient is very sensitive. He does not like to be asked any questions about his personal matters. OBSERVATION: VITAL SIGNS: Temperature 98.0, blood pressure 154/83, pulse 62, respiration 18, O2 sat 96%. Slept about 7 hours last night. MEDICATIONS: Reviewed. Currently on Aricept, olanzapine 5 mg daily, gabapentin, and Cymbalta. He is also on carbidopa/levodopa for Parkinson's disease. The patient denies of any side effects at this time. ASSESSMENT: 1. Major neurocognitive disorder, most likely Lewy body disease. 2. Mood disorder, unspecified. 3. Impulse control disorder, unspecified. PLAN: Continue with the current medication and also start on Zyprexa 5 mg t.i.d. p.r.n. for severe agitation. XAVI HALE MD DR: JAMAL/yovani JOB#: [id number] / [id number]
[2018-06-14] MEDS: guaiFENesin/CODEINE 100mg/10mg 5 ML LIQUID PO PRN (06:04)
[2018-06-14] MEDS: SPIRONOLACTONE 25 MG TABLET PO SCH (08:51)
[2018-06-14] MEDS: prednisoLONE ACETATE 1% OPHTH SUSPENSION 5ML BOTTLE. OS SCH ×2 (08:51→20:45)
[2018-06-14] MEDS: ASPIRIN 81 MG TAB.CHEW PO SCH (08:51)
[2018-06-14] MEDS: DULoxetine HCL 60 MG CAPSULE.DR PO SCH (08:51)
[2018-06-14] MEDS: TAMSULOSIN 0.4 MG CAP.ER.24H. PO SCH (08:51)
[2018-06-14] MEDS: VITAMIN B COMPLEX CAPSULE. PO SCH (08:51)
[2018-06-14] MEDS: KETOROLAC TROMETHAMINE 0.5% OPHTH SOLUTION 3ML BOTTLE. OS SCH (08:51)
[2018-06-14] MEDS: GABAPENTIN 100 MG CAPSULE. PO SCH ×3 (08:52→20:44)
[2018-06-14] MEDS: SENNOSIDES/DOCUSATE 8.6/50MG TABLET. PO SCH (08:52)
[2018-06-14] MEDS: CARBIDOPA/LEVODOPA 25/100MG TABLET PO SCH ×4 (08:52→20:44)
[2018-06-14] MEDS: MELOXICAM 7.5 MG TABLET PO SCH (08:52)
[2018-06-14] MEDS: POLYETHYLENE GLYCOL 3350 17 GM PACKET. PO SCH (08:52)
[2018-06-14] MEDS: MULTIVITAMIN with MINERAL TABLET. PO SCH (08:52)
[2018-06-14] MEDS: FUROSEMIDE 40 MG TABLET PO SCH (08:52)
[2018-06-14 15:54] VITALS: BP 103/68
--- NOTE | 2018-06-14 18:57 | PN ---
DATE: 06/14/2018 SUBJECTIVE: The patient was seen today, met with the staff, chart reviewed. The patient's behavior has improved significantly since yesterday. He is his usual self, pleasant, greeting everyone, not having any complaints. OBSERVATION: VITAL SIGNS: Temperature 97.8, blood pressure 103/68, pulse 64, respirations 16, O2 sat 93%. MEDICATIONS: Reviewed. He is compliant with the treatment. The patient is not presenting with any major physical complaints. No side effects to the medications. ASSESSMENT: AXIS I: Major neurocognitive disorder, most likely Lewy body disease. AXIS II: Mood disorder, unspecified. AXIS III. Impulse control disorder, unspecified. PLAN: To continue with the treatment. He is also on Zyprexa 5 mg t.i.d. p.r.n. for severe agitation. XAVI HALE MD DR: JAMAL/yovani JOB#: [id number] / [id number]
[2018-06-14] MEDS: DONEPEZIL HCL 5 MG TABLET. PO SCH (20:44)
[2018-06-14] MEDS: ATORVASTATIN CALCIUM 20 MG TABLET PO SCH (20:45)
[2018-06-15] MEDS: guaiFENesin/CODEINE 100mg/10mg 5 ML LIQUID PO PRN (01:13)
[2018-06-15 05:35] VITALS: BP 132/76
[2018-06-15 08:16] LABS: BASO # 0.1 x10^3/uL (0.0-0.2); BASO % 1 % (0-3); EOS # 0.2 x10^3/uL (0.0-0.7); EOS % 3 % (0-3); HEMATOCRIT 41.4 % (39.0-53.0); LYMPH # 1.2 x10^3/uL (1.0-4.8); LYMPH % 15 % (24-48); MEAN CORPUSCULAR HEMOGLOBIN 34 pg (25-35); MEAN CORPUSCULAR HGB CONC 34 g/dL (31-37); MEAN CORPUSCULAR VOLUME 99 fL (79-100); MONO # 0.8 x10^3/uL (0.0-1.1); MONO % 9 % (0-9); NEUT % 72 % (31-73); PLATELET COUNT 266 x10^3/uL (140-400); RED BLOOD COUNT 4.17 x10^6/uL (4.30-5.70); RED CELL DISTRIBUTION WIDTH 13.9 % (11.5-14.5); WHITE BLOOD COUNT 8.3 x10^3/uL (4.0-11.0)
[2018-06-15 08:21] LABS: CALCIUM 9.5 mg/dL (8.5-10.1); CREATININE 0.8 mg/dL (0.7-1.3); GFR 93.3; POTASSIUM 4.3 mmol/L (3.5-5.1)
[2018-06-15] MEDS: FUROSEMIDE 40 MG TABLET PO SCH (09:26)
[2018-06-15] MEDS: CARBIDOPA/LEVODOPA 25/100MG TABLET PO SCH ×4 (09:26→20:20)
[2018-06-15] MEDS: MELOXICAM 7.5 MG TABLET PO SCH (09:26)
[2018-06-15] MEDS: MULTIVITAMIN with MINERAL TABLET. PO SCH (09:26)
[2018-06-15] MEDS: DULoxetine HCL 60 MG CAPSULE.DR PO SCH (09:27)
[2018-06-15] MEDS: ASPIRIN 81 MG TAB.CHEW PO SCH (09:27)
[2018-06-15] MEDS: prednisoLONE ACETATE 1% OPHTH SUSPENSION 5ML BOTTLE. OS SCH ×2 (09:27→20:20)
[2018-06-15] MEDS: SPIRONOLACTONE 25 MG TABLET PO SCH (09:27)
[2018-06-15] MEDS: SENNOSIDES/DOCUSATE 8.6/50MG TABLET. PO SCH (09:27)
[2018-06-15] MEDS: VITAMIN B COMPLEX CAPSULE. PO SCH (09:27)
[2018-06-15] MEDS: TAMSULOSIN 0.4 MG CAP.ER.24H. PO SCH (09:29)
[2018-06-15] MEDS: KETOROLAC TROMETHAMINE 0.5% OPHTH SOLUTION 3ML BOTTLE. OS SCH (09:29)
[2018-06-15] MEDS: GABAPENTIN 100 MG CAPSULE. PO SCH ×3 (09:29→20:20)
[2018-06-15 15:23] VITALS: BP 104/63
--- NOTE | 2018-06-15 18:23 | PN ---
DATE: 06/15/2018 SUBJECTIVE: The patient was seen today, met with the staff, chart reviewed. The patient continues to show improvement, still has episodes. He tends to withdraw emotional irritability, but the patient is friendly most of the time, interacting with the staff and residents. OBSERVATION: VITAL SIGNS: Temperature 97.8, blood pressure 134/76, pulse 66, respirations 18, O2 93%. Slept about 7 hours last night. The patient is not having any side effects to the medications. The patient is not having any major physical problems. PLAN: Continue with the treatment. The patient continues to be on Zyprexa 5 mg t.i.d. p.r.n. for severe agitation. XAVI HALE MD DR: JAMAL/yovani JOB#: [id number] / [id number]
[2018-06-15] MEDS: DONEPEZIL HCL 5 MG TABLET. PO SCH (20:20)
[2018-06-15] MEDS: ATORVASTATIN CALCIUM 20 MG TABLET PO SCH (20:20)
[2018-06-16 04:12] LABS: CLARITY,URINE CLEAR; COLOR,URINE YELLOW
[2018-06-16 04:13] LABS: BACTERIA,URINE FEW /HPF (0-FEW); BILIRUBIN,URINE NEG (NEG); GLUCOSE,URINE NEG (NEG); NITRITE,URINE NEG (NEG); RBC,URINE 0 /HPF (0-2); SQUAMOUS EPITHELIAL CELL,UR FEW /LPF; UROBILINOGEN,URINE 0.2 mg/dL (0.2 mg/dL)
[2018-06-16 05:54] VITALS: BP 134/71
[2018-06-16] MEDS: prednisoLONE ACETATE 1% OPHTH SUSPENSION 5ML BOTTLE. OS SCH ×2 (09:17→19:16)
[2018-06-16] MEDS: KETOROLAC TROMETHAMINE 0.5% OPHTH SOLUTION 3ML BOTTLE. OS SCH (09:17)
[2018-06-16] MEDS: ASPIRIN 81 MG TAB.CHEW PO SCH (09:17)
[2018-06-16] MEDS: TAMSULOSIN 0.4 MG CAP.ER.24H. PO SCH (09:18)
[2018-06-16] MEDS: DULoxetine HCL 60 MG CAPSULE.DR PO SCH (09:18)
[2018-06-16] MEDS: SPIRONOLACTONE 25 MG TABLET PO SCH (09:18)
[2018-06-16] MEDS: VITAMIN B COMPLEX CAPSULE. PO SCH (09:18)
[2018-06-16] MEDS: FUROSEMIDE 40 MG TABLET PO SCH (09:21)
[2018-06-16] MEDS: CARBIDOPA/LEVODOPA 25/100MG TABLET PO SCH ×4 (09:22→19:16)
[2018-06-16] MEDS: MELOXICAM 7.5 MG TABLET PO SCH (09:22)
[2018-06-16] MEDS: MULTIVITAMIN with MINERAL TABLET. PO SCH (09:22)
[2018-06-16] MEDS: SENNOSIDES/DOCUSATE 8.6/50MG TABLET. PO SCH (09:22)
[2018-06-16] MEDS: guaiFENesin/CODEINE 100mg/10mg 5 ML LIQUID PO PRN (09:22)
[2018-06-16] MEDS: GABAPENTIN 100 MG CAPSULE. PO SCH ×3 (09:22→19:16)
[2018-06-16] MEDS: ACETAMINOPHEN 325 MG TABLET PO PRN (09:22)
[2018-06-16] MEDS: POLYETHYLENE GLYCOL 3350 17 GM PACKET. PO SCH (09:22)
[2018-06-16 16:13] VITALS: BP 112/67
[2018-06-16] MEDS: DONEPEZIL HCL 5 MG TABLET. PO SCH (19:16)
[2018-06-16] MEDS: ATORVASTATIN CALCIUM 20 MG TABLET PO SCH (19:16)
[2018-06-17 05:47] VITALS: BP 138/80
[2018-06-17] MEDS: ASPIRIN 81 MG TAB.CHEW PO SCH (08:52)
[2018-06-17] MEDS: SPIRONOLACTONE 25 MG TABLET PO SCH (08:53)
[2018-06-17] MEDS: DULoxetine HCL 60 MG CAPSULE.DR PO SCH (08:53)
[2018-06-17] MEDS: TAMSULOSIN 0.4 MG CAP.ER.24H. PO SCH (08:53)
[2018-06-17] MEDS: VITAMIN B COMPLEX CAPSULE. PO SCH (08:53)
[2018-06-17] MEDS: MULTIVITAMIN with MINERAL TABLET. PO SCH (08:54)
[2018-06-17] MEDS: CARBIDOPA/LEVODOPA 25/100MG TABLET PO SCH ×4 (08:54→19:28)
[2018-06-17] MEDS: FUROSEMIDE 40 MG TABLET PO SCH (08:54)
[2018-06-17] MEDS: GABAPENTIN 100 MG CAPSULE. PO SCH ×3 (08:54→19:29)
[2018-06-17] MEDS: SENNOSIDES/DOCUSATE 8.6/50MG TABLET. PO SCH (08:54)
[2018-06-17] MEDS: MELOXICAM 7.5 MG TABLET PO SCH (08:54)
[2018-06-17] MEDS: prednisoLONE ACETATE 1% OPHTH SUSPENSION 5ML BOTTLE. OS SCH ×2 (08:55→19:28)
[2018-06-17] MEDS: KETOROLAC TROMETHAMINE 0.5% OPHTH SOLUTION 3ML BOTTLE. OS SCH (08:55)
--- NOTE | 2018-06-17 12:28 | PN ---
DATE: 06/17/2018 SUBJECTIVE: The patient was seen today, met with the staff, chart reviewed. The patient's behavior has improved. The patient has not presented with any major behavior problems. Return to withdraw, but interacts very well on 1:1. The patient states on the wheelchair most of the time. OBSERVATION: VITAL SIGNS: Temperature 97.4, blood pressure 138/80, pulse 70, respirations 20, O2 sat 97%. Slept about 6 hours last night. CURRENT MEDICATIONS: The patient's medications reviewed, is not having any side effects. The patient's appetite is good. ASSESSMENT: Major neurocognitive disorder, most likely Lewy body disease; mood disorder, unspecified. PLAN: To continue with the treatment. XAVI HALE MD DR: JAMAL/yovani JOB#: [id number] / [id number]
[2018-06-17] MEDS: ACETAMINOPHEN 325 MG TABLET PO PRN (13:57)
[2018-06-17 16:26] VITALS: BP 111/68
[2018-06-17] MEDS: DONEPEZIL HCL 5 MG TABLET. PO SCH (19:28)
[2018-06-17] MEDS: ATORVASTATIN CALCIUM 20 MG TABLET PO SCH (19:28)
[2018-06-17] MEDS: guaiFENesin/CODEINE 100mg/10mg 5 ML LIQUID PO PRN (22:13)
[2018-06-18 05:55] VITALS: BP 108/65
[2018-06-18] MEDS: ASPIRIN 81 MG TAB.CHEW PO SCH (09:32)
[2018-06-18] MEDS: prednisoLONE ACETATE 1% OPHTH SUSPENSION 5ML BOTTLE. OS SCH ×2 (09:32→19:48)
[2018-06-18] MEDS: VITAMIN B COMPLEX CAPSULE. PO SCH (09:32)
[2018-06-18] MEDS: KETOROLAC TROMETHAMINE 0.5% OPHTH SOLUTION 3ML BOTTLE. OS SCH (09:32)
[2018-06-18] MEDS: SPIRONOLACTONE 25 MG TABLET PO SCH (09:32)
[2018-06-18] MEDS: SENNOSIDES/DOCUSATE 8.6/50MG TABLET. PO SCH (09:37)
[2018-06-18] MEDS: GABAPENTIN 100 MG CAPSULE. PO SCH ×3 (09:37→19:48)
[2018-06-18] MEDS: MELOXICAM 7.5 MG TABLET PO SCH (09:37)
[2018-06-18] MEDS: DULoxetine HCL 60 MG CAPSULE.DR PO SCH (09:37)
[2018-06-18] MEDS: TAMSULOSIN 0.4 MG CAP.ER.24H. PO SCH (09:37)
[2018-06-18] MEDS: POLYETHYLENE GLYCOL 3350 17 GM PACKET. PO SCH (09:37)
[2018-06-18] MEDS: FUROSEMIDE 40 MG TABLET PO SCH (09:37)
[2018-06-18] MEDS: MULTIVITAMIN with MINERAL TABLET. PO SCH (09:38)
[2018-06-18] MEDS: CARBIDOPA/LEVODOPA 25/100MG TABLET PO SCH ×4 (09:38→19:48)
[2018-06-18] MEDS: CHOLECALCIFEROL (VITAMIN D3) 50,000 UNIT CAPSULE PO SCH (09:38)
[2018-06-18] MEDS: guaiFENesin/CODEINE 100mg/10mg 5 ML LIQUID PO PRN ×2 (09:48→20:30)
[2018-06-18 16:07] VITALS: BP 100/63
--- NOTE | 2018-06-18 19:01 | PDOC ---
Exam Note: Franki Note: Please also refer to the separate dictated note~for this date of service dictated separately.~Patient seen individually. Discussed the patient with Nursing staff reviewed the chart.~Reviewed interim history and current functioning. Reviewed vital signs,~Labs/ Radiology~and current medications noted below. Continue current treatment with the changes noted in the dictated addendum note Assessment: Vital Signs: Vital Signs Date Time Temp Pulse Resp B/P (MAP) Pulse Ox O2 Delivery O2 Flow Rate FiO2 06/18/18 16:07 98.5 76 20 100/63 (75) 96 06/17/18 05:47 Room Air I&O Intake and Output 06/18/18 07:00 Intake Total 1080 ml Balance 1080 ml Intake Oral 1080 ml # Bowel Movements 1 Current Medications: Meds: Current Medications Lactated Ringer's 1,000 ml @ 100 mls/hr Q10H IV ; Start 06/07/18 at 19:28; Stop 06/08/18 at 05:27; Status DC Acetaminophen (Tylenol) 650 mg PRN Q6HRS PRN PO PAIN / TEMP Last administered on 06/17/18at 13:57; Start 06/08/18 at 00:30 Multi-Ingredient Ointment (Analgesic [place]) 1 jesse PRN QID PRN TP MUSCLE PAIN; Start 06/08/18 at 00:30 Al Hydroxide/Mg Hydroxide (Mylanta Plus Xs) 15 ml PRN AFTMEALHC PRN PO DYSPEPSIA; Start 06/08/18 at 00:30 Magnesium Hydroxide (Milk Of Magnesia) 2,400 mg PRN QHS PRN PO CONSTIPATION; Start 06/08/18 at 00:30 Olanzapine (ZyPREXA ZYDIS) 5 mg QHS PO Last administered on 06/17/18at 19:28; Start 06/08/18 at 21:00 Donepezil HCl (Aricept) 5 mg QHS PO Last administered on 06/17/18at 19:28; Start 06/08/18 at 21:00 Duloxetine HCl (Cymbalta) 60 mg DAILY PO Last administered on 06/18/18at 09:37 ; Start 06/08/18 at 09:00 Oxycodone HCl (Roxicodone) 5 mg PRN Q6HRS PRN PO MODERATE PAIN; Start at 01:15 Atorvastatin Calcium (Lipitor) 20 mg QHS PO Last administered on 06/17/18 19: 28; Start 06/08/18 at 21:00 Carbidopa/Levodopa (Sinemet 25/100) 1 tab QID PO Last administered on 17:16; Start 06/08/18 at 09:00 Gabapentin (Neurontin) 100 mg TID PO Last administered on 06/18/18 13:56; Start 06/08/18 at 09:00 Ketorolac Tromethamine (Acular) 1 drop DAILY OS Last administered on 09:32; Start 06/08/18 at 09:00 Prednisolone Acetate (Pred Forte) 1 drop BID OS Last administered on 09:32; Start 06/08/18 at 09:00 Senna/Docusate Sodium (Senna Plus) 1 tab DAILY PO Last administered on 09:37; Start 06/08/18 at 09:00 Tamsulosin HCl (Flomax) 0.4 mg DAILY PO Last administered on 06/14/18 08:51; Start 06/08/18 at 09:00; Stop 06/14/18 at 16:05; Status DC Acetaminophen (Tylenol) 500 mg PRN Q6HRS PRN PO MILD PAIN; Start 06/08/18 at 01:15 Aspirin (Children'S Aspirin) 81 mg DAILYWBKFT PO Last administered on 09:32; Start 06/08/18 at 08:00 Furosemide (Lasix) 40 mg DAILY PO Last administered on 06/18/18 09:37; Start 06/08/18 at 09:00 Guaifenesin/ Codeine Phosphate (Robitussin Ac) 10 ml PRN Q6HRS PRN PO COUGH Last administered on 06/18/18 09:48; Start 06/08/18 at 07:30 Meloxicam (Mobic) 7.5 mg DAILY PO Last administered on 06/18/18 09:37; Start 06/08/18 at 09:00 Multivitamins/ Calcium (Thera-M Plus) 1 tab DAILY PO Last administered on 06/18 09:38; Start 06/08/18 at 09:00 Polyethylene Glycol (miraLAX) 17 gm PRN DAILY PRN PO CONSTIPATION; Start 06/08 at 01:15 Polyethylene Glycol (miraLAX) 17 gm Q48H PO Last administered on 06/16/18at 09: 22; Start 06/08/18 at 09:00 Spironolactone (Aldactone) 25 mg DAILY PO Last administered on 06/18/18at 09:32 ; Start 06/08/18 at 09:00 Vitamin B Complex 1 cap DAILY PO Last administered on 06/18/18at 09:32; Start 06/08/18 at 09:00 Vitamin D (Vitamin D3) 50,000 unit WEEKLY PO Last administered on 06/18/18at 09 :38; Start 06/11/18 at 13:15 Olanzapine (ZyPREXA ZYDIS) 5 mg PRN Q8HRS PRN PO Agitation/Anxiety Last administered on 06/13/18at 17:54; Start 06/13/18 at 17:45 Tamsulosin HCl (Flomax) 0.8 mg DAILY PO Last administered on 06/18/18at 09:37; Start 06/15/18 at 09:00 Active Scripts Active Reported Zyprexa Zydis (Olanzapine) 5 Mg Tab.rapdis 5 Mg PO QHS Vitamin B Complex 1 Each Tablet 1 Each PO DAILY Tamsulosin Hcl 0.4 Mg Cap.er.24h 0.4 Mg PO DAILY Spironolactone 25 Mg Tablet 25 Mg PO DAILY Sinemet 25-100 Mg Tablet (Carbidopa/Levodopa) 1 Each Tablet 1 Each PO QID Senna-Docusate Sodium Tablet (Sennosides/Docusate Sodium) 1 Each Tablet 1 Each PO DAILY Pred Forte (Prednisolone Acetate) 1 Ml Drops.susp 1 Ml OP BID Miralax (Polyethylene Glycol 3350) 17 Gm Powd.pack 17 Gm PO PRN DAILY PRN Oxycodone Hcl 5 Mg Capsule 5 Mg PO PRN Q6HRS PRN Multivitamins (Multivitamin) 1 Each Tablet 1 Each PO DAILY Miralax (Polyethylene Glycol 3350) 17 Gm Powd.pack 17 Gm PO Q48HRS Meloxicam 7.5 Mg Tablet 7.5 Mg PO DAILY Lasix (Furosemide) 40 Mg Tablet 40 Mg PO DAILY Nevanac (Nepafenac) 3 Ml Drops.susp 1 Drop OP DAILY Guaifenesin Ac Cough Syrup (Guaifenesin/Codeine Phosphate) 473 Ml Liquid 2 Tbs PO PRN Q6HRS PRN Gabapentin 100 Mg Capsule 100 Mg PO TID Cymbalta (Duloxetine Hcl) 60 Mg Capsule. 60 Mg PO DAILY Atorvastatin Calcium 20 Mg Tablet 20 Mg PO QHS Aspir-Low (Aspirin) 81 Mg Tablet. 81 Mg PO DAILY Aricept (Donepezil Hcl) 5 Mg Tablet 5 Mg PO QHS Acetaminophen 500 Mg Tablet 500 Mg PO PRN Q6HRS PRN I have reviewed the current psychotropics carefully including drug interactions. Risk benefit ratio favors no change other than as noted in my dictated progress note. Diagnosis: Problems: (1) Change in mental status REYNALDO MONTERROSO MD Jun 18, 2018 19:01
[2018-06-18] MEDS: ATORVASTATIN CALCIUM 20 MG TABLET PO SCH (20:02)
[2018-06-18] MEDS: DONEPEZIL HCL 5 MG TABLET. PO SCH (20:02)
[2018-06-19] MEDS: guaiFENesin/CODEINE 100mg/10mg 5 ML LIQUID PO PRN ×2 (05:50→19:46)
[2018-06-19 05:51] VITALS: BP 122/74
[2018-06-19] MEDS: ASPIRIN 81 MG TAB.CHEW PO SCH (08:02)
[2018-06-19] MEDS: VITAMIN B COMPLEX CAPSULE. PO SCH (08:02)
[2018-06-19] MEDS: SPIRONOLACTONE 25 MG TABLET PO SCH (08:02)
[2018-06-19] MEDS: TAMSULOSIN 0.4 MG CAP.ER.24H. PO SCH (08:02)
[2018-06-19] MEDS: GABAPENTIN 100 MG CAPSULE. PO SCH ×3 (08:02→19:46)
[2018-06-19] MEDS: MELOXICAM 7.5 MG TABLET PO SCH (08:03)
[2018-06-19] MEDS: DULoxetine HCL 60 MG CAPSULE.DR PO SCH (08:03)
[2018-06-19] MEDS: FUROSEMIDE 40 MG TABLET PO SCH (08:03)
[2018-06-19] MEDS: MULTIVITAMIN with MINERAL TABLET. PO SCH (08:03)
[2018-06-19] MEDS: SENNOSIDES/DOCUSATE 8.6/50MG TABLET. PO SCH (08:03)
[2018-06-19] MEDS: CARBIDOPA/LEVODOPA 25/100MG TABLET PO SCH ×4 (08:03→19:46)
[2018-06-19] MEDS: KETOROLAC TROMETHAMINE 0.5% OPHTH SOLUTION 3ML BOTTLE. OS SCH (08:04)
[2018-06-19] MEDS: prednisoLONE ACETATE 1% OPHTH SUSPENSION 5ML BOTTLE. OS SCH ×2 (08:04→19:45)
[2018-06-19 15:44] VITALS: BP 100/69
--- NOTE | 2018-06-19 18:59 | PDOC ---
Exam Note: Franki Note: Please also refer to the separate dictated note~for this date of service dictated separately.~Patient seen individually. Discussed the patient with Nursing staff reviewed the chart.~Reviewed interim history and current functioning. Reviewed vital signs,~Labs/ Radiology~and current medications noted below. Continue current treatment with the changes noted in the dictated addendum note Assessment: Vital Signs: Vital Signs Date Time Temp Pulse Resp B/P (MAP) Pulse Ox O2 Delivery O2 Flow Rate FiO2 06/19/18 15:44 97.4 66 20 100/69 (79) 96 Room Air I&O Intake and Output 06/19/18 07:00 Intake Total 600 ml Balance 600 ml Intake Oral 600 ml # Voids 1 # Bowel Movements 1 Current Medications: Meds: Current Medications Lactated Ringer's 1,000 ml @ 100 mls/hr Q10H IV ; Start 06/07/18 at 19:28; Stop 06/08/18 at 05:27; Status DC Acetaminophen (Tylenol) 650 mg PRN Q6HRS PRN PO PAIN / TEMP Last administered on 06/17/18at 13:57; Start 06/08/18 at 00:30 Multi-Ingredient Ointment (Analgesic [place]) 1 jesse PRN QID PRN TP MUSCLE PAIN; Start 06/08/18 at 00:30 Al Hydroxide/Mg Hydroxide (Mylanta Plus Xs) 15 ml PRN AFTMEALHC PRN PO DYSPEPSIA; Start 06/08/18 at 00:30 Magnesium Hydroxide (Milk Of Magnesia) 2,400 mg PRN QHS PRN PO CONSTIPATION; Start 06/08/18 at 00:30 Olanzapine (ZyPREXA ZYDIS) 5 mg QHS PO Last administered on 06/18/18at 19:48; Start 06/08/18 at 21:00 Donepezil HCl (Aricept) 5 mg QHS PO Last administered on 06/18/18at 20:02; Start 06/08/18 at 21:00 Duloxetine HCl (Cymbalta) 60 mg DAILY PO Last administered on 06/19/18at 08:03 ; Start 06/08/18 at 09:00 Oxycodone HCl (Roxicodone) 5 mg PRN Q6HRS PRN PO MODERATE PAIN; Start at 01:15 Atorvastatin Calcium (Lipitor) 20 mg QHS PO Last administered on 06/18/18 20: 02; Start 06/08/18 at 21:00 Carbidopa/Levodopa (Sinemet 25/100) 1 tab QID PO Last administered on 16:49; Start 06/08/18 at 09:00 Gabapentin (Neurontin) 100 mg TID PO Last administered on 06/19/18 13:15; Start 06/08/18 at 09:00 Ketorolac Tromethamine (Acular) 1 drop DAILY OS Last administered on 08:04; Start 06/08/18 at 09:00 Prednisolone Acetate (Pred Forte) 1 drop BID OS Last administered on 08:04; Start 06/08/18 at 09:00 Senna/Docusate Sodium (Senna Plus) 1 tab DAILY PO Last administered on 08:03; Start 06/08/18 at 09:00 Tamsulosin HCl (Flomax) 0.4 mg DAILY PO Last administered on 06/14/18 08:51; Start 06/08/18 at 09:00; Stop 06/14/18 at 16:05; Status DC Acetaminophen (Tylenol) 500 mg PRN Q6HRS PRN PO MILD PAIN; Start 06/08/18 at 01:15 Aspirin (Children'S Aspirin) 81 mg DAILYWBKFT PO Last administered on at 08:02; Start 06/08/18 at 08:00 Furosemide (Lasix) 40 mg DAILY PO Last administered on 06/19/18 08:03; Start 06/08/18 at 09:00 Guaifenesin/ Codeine Phosphate (Robitussin Ac) 10 ml PRN Q6HRS PRN PO COUGH Last administered on 06/19/18 05:50; Start 06/08/18 at 07:30 Meloxicam (Mobic) 7.5 mg DAILY PO Last administered on 06/19/18 08:03; Start 06/08/18 at 09:00 Multivitamins/ Calcium (Thera-M Plus) 1 tab DAILY PO Last administered on 06/19 08:03; Start 06/08/18 at 09:00 Polyethylene Glycol (miraLAX) 17 gm PRN DAILY PRN PO CONSTIPATION; Start 06/08 at 01:15 Polyethylene Glycol (miraLAX) 17 gm Q48H PO Last administered on 06/16/18at 09: 22; Start 06/08/18 at 09:00 Spironolactone (Aldactone) 25 mg DAILY PO Last administered on 06/19/18at 08:02 ; Start 06/08/18 at 09:00 Vitamin B Complex 1 cap DAILY PO Last administered on 06/19/18at 08:02; Start 06/08/18 at 09:00 Vitamin D (Vitamin D3) 50,000 unit WEEKLY PO Last administered on 06/18/18at 09 :38; Start 06/11/18 at 13:15 Olanzapine (ZyPREXA ZYDIS) 5 mg PRN Q8HRS PRN PO Agitation/Anxiety Last administered on 06/13/18at 17:54; Start 06/13/18 at 17:45 Tamsulosin HCl (Flomax) 0.8 mg DAILY PO Last administered on 06/19/18at 08:02; Start 06/15/18 at 09:00 Active Scripts Active Reported Zyprexa Zydis (Olanzapine) 5 Mg Tab.rapdis 5 Mg PO QHS Vitamin B Complex 1 Each Tablet 1 Each PO DAILY Tamsulosin Hcl 0.4 Mg Cap.er.24h 0.4 Mg PO DAILY Spironolactone 25 Mg Tablet 25 Mg PO DAILY Sinemet 25-100 Mg Tablet (Carbidopa/Levodopa) 1 Each Tablet 1 Each PO QID Senna-Docusate Sodium Tablet (Sennosides/Docusate Sodium) 1 Each Tablet 1 Each PO DAILY Pred Forte (Prednisolone Acetate) 1 Ml Drops.susp 1 Ml OP BID Miralax (Polyethylene Glycol 3350) 17 Gm Powd.pack 17 Gm PO PRN DAILY PRN Oxycodone Hcl 5 Mg Capsule 5 Mg PO PRN Q6HRS PRN Multivitamins (Multivitamin) 1 Each Tablet 1 Each PO DAILY Miralax (Polyethylene Glycol 3350) 17 Gm Powd.pack 17 Gm PO Q48HRS Meloxicam 7.5 Mg Tablet 7.5 Mg PO DAILY Lasix (Furosemide) 40 Mg Tablet 40 Mg PO DAILY Nevanac (Nepafenac) 3 Ml Drops.susp 1 Drop OP DAILY Guaifenesin Ac Cough Syrup (Guaifenesin/Codeine Phosphate) 473 Ml Liquid 2 Tbs PO PRN Q6HRS PRN Gabapentin 100 Mg Capsule 100 Mg PO TID Cymbalta (Duloxetine Hcl) 60 Mg Capsule. 60 Mg PO DAILY Atorvastatin Calcium 20 Mg Tablet 20 Mg PO QHS Aspir-Low (Aspirin) 81 Mg Tablet. 81 Mg PO DAILY Aricept (Donepezil Hcl) 5 Mg Tablet 5 Mg PO QHS Acetaminophen 500 Mg Tablet 500 Mg PO PRN Q6HRS PRN I have reviewed the current psychotropics carefully including drug interactions. Risk benefit ratio favors no change other than as noted in my dictated progress note. Diagnosis: Problems: (1) Change in mental status (2) Anxiety disorder (3) Dementia in Alzheimer's disease with delusions (4) Dementia in Alzheimer's disease with depression (5) Lewy body dementia with behavioral disturbance (6) Impulse control disorder REYNALDO MONTERROSO MD Jun 19, 2018 18:59
[2018-06-19] MEDS: ATORVASTATIN CALCIUM 20 MG TABLET PO SCH (19:46)
[2018-06-19] MEDS: DONEPEZIL HCL 5 MG TABLET. PO SCH (19:46)
--- NOTE | 2018-06-20 02:22 | PN ---
DATE: 06/18/2018 This is a late entry for 06/18/2018 covers elements not covered in my initial note. SUBJECTIVE: I met with the patient in the evening and reviewed information from Dr. Casper, who had covered for me over the past 1 week. This is my first visit with the patient. The patient slept 6-1/2 hours previous night. He remains confused, consistent with his diagnosis of Lewy body dementia, but per nursing report, he has done better. REVIEW OF SYSTEMS: Ambulation impaired, in wheelchair. No CV, , pulmonary, eye, ENT system symptoms on review. Reliability poor. MENTAL STATUS EXAM: Oriented to himself. Insight, judgment, recent and remote memory, attention, concentration, fund of knowledge poor, consistent with his diagnosis. IMPRESSION: Major neurocognitive disorder, multifactorial, Lewy body with delusion, depression, behavioral disturbance; anxiety disorder, unspecified; impulse control disorder, unspecified; probable urinary tract infection. PLAN: Maintain Cymbalta, Aricept, Zyprexa p.r.n. He is also on Neurontin for neuropathy. Make further adjustments as clinically indicated. MAN Rhona MONTERROSO MD DR: RAMIREZ/yovani JOB#: [id number] / [id number]
[2018-06-20 05:57] VITALS: BP 116/65
[2018-06-20] MEDS: POLYETHYLENE GLYCOL 3350 17 GM PACKET. PO SCH (07:49)
[2018-06-20] MEDS: VITAMIN B COMPLEX CAPSULE. PO SCH (07:49)
[2018-06-20] MEDS: CARBIDOPA/LEVODOPA 25/100MG TABLET PO SCH ×4 (07:49→20:25)
[2018-06-20] MEDS: SENNOSIDES/DOCUSATE 8.6/50MG TABLET. PO SCH (07:49)
[2018-06-20] MEDS: MELOXICAM 7.5 MG TABLET PO SCH (07:49)
[2018-06-20] MEDS: ASPIRIN 81 MG TAB.CHEW PO SCH (07:50)
[2018-06-20] MEDS: SPIRONOLACTONE 25 MG TABLET PO SCH (07:50)
[2018-06-20] MEDS: GABAPENTIN 100 MG CAPSULE. PO SCH ×3 (07:50→20:25)
[2018-06-20] MEDS: FUROSEMIDE 40 MG TABLET PO SCH (07:50)
[2018-06-20] MEDS: TAMSULOSIN 0.4 MG CAP.ER.24H. PO SCH (07:50)
[2018-06-20] MEDS: MULTIVITAMIN with MINERAL TABLET. PO SCH (07:50)
[2018-06-20] MEDS: KETOROLAC TROMETHAMINE 0.5% OPHTH SOLUTION 3ML BOTTLE. OS SCH (07:52)
[2018-06-20] MEDS: prednisoLONE ACETATE 1% OPHTH SUSPENSION 5ML BOTTLE. OS SCH ×2 (07:52→20:25)
[2018-06-20] MEDS: DULoxetine HCL 60 MG CAPSULE.DR PO SCH (07:52)
[2018-06-20] MEDS: oxyCODONE IR 5 MG TABLET PO PRN (13:27)
[2018-06-20] MEDS: guaiFENesin/CODEINE 100mg/10mg 5 ML LIQUID PO PRN ×2 (13:28→20:25)
[2018-06-20 16:36] VITALS: BP 108/72
[2018-06-20] MEDS: busPIRone 5 MG TABLET. PO SCH (17:15)
[2018-06-20] MEDS: ATORVASTATIN CALCIUM 20 MG TABLET PO SCH (20:25)
[2018-06-20] MEDS: ACETAMINOPHEN 325 MG TABLET PO PRN (20:25)
[2018-06-20] MEDS: DONEPEZIL HCL 5 MG TABLET. PO SCH (20:25)
--- NOTE | 2018-06-20 22:05 | PN ---
DATE: 06/19/2018 PSYCHIATRIC PROGRESS NOTE This late entry 06/19/2018 covers elements not covered in my initial note. SUBJECTIVE: I met with the patient in the evening. The patient slept 7-1/2 hours previous night. He has had no aggressive, disruptive behaviors previous night, compliant with his medications. Received no PRNs, cooperative at showers and cares, which is an improvement for him. His , however, relates that he will often maintain a stable mood with no behavior problems for an extended period of time because he has some ability to control this and she was sure we would see some of what prompted his referral from [facility] soon enough. REVIEW OF SYSTEMS: Ambulation impaired, in wheelchair. No CV, , pulmonary, eye, ENT system symptoms on review. MENTAL STATUS EXAM: Oriented to himself and situation. Speech has some latency, coherent, rapid at times. Abstraction fair, computation impaired, language function intact. Attention span short. Short term memory is impaired. No active suicidal or homicidal ideation. LABORATORY DATA: Reviewed. IMPRESSION: Major neurocognitive disorder, Lewy body with delusion, depression, behavioral disturbance; anxiety disorder, unspecified; impulse control disorder, unspecified; Parkinson's disease. PLAN: Continue psychotropics from initial note, Aricept, Cymbalta, Neurontin, remains on Zyprexa scheduled 5 mg at bedtime and p.r.n. along with Sinemet for his Parkinson's. MAN Rhona MONTERROSO MD DR: RAMIREZ/yovani JOB#: [id number] / [id number]
--- NOTE | 2018-06-20 22:55 | PDOC ---
Exam Note: Franki Note: Please also refer to the separate dictated note~for this date of service dictated separately.~Patient seen individually. Discussed the patient with Nursing staff reviewed the chart.~Reviewed interim history and current functioning. Reviewed vital signs,~Labs/ Radiology~and current medications noted below. Continue current treatment with the changes noted in the dictated addendum note Assessment: Vital Signs: Vital Signs Date Time Temp Pulse Resp B/P (MAP) Pulse Ox O2 Delivery O2 Flow Rate FiO2 06/20/18 16:36 98.1 64 18 108/72 (84) 93 06/20/18 14:56 Room Air I&O Intake and Output 06/20/18 07:00 Intake Total 1200 ml Balance 1200 ml Intake Oral 1200 ml Current Medications: Meds: Current Medications Lactated Ringer's 1,000 ml @ 100 mls/hr Q10H IV ; Start 06/07/18 at 19:28; Stop 06/08/18 at 05:27; Status DC Acetaminophen (Tylenol) 650 mg PRN Q6HRS PRN PO PAIN / TEMP Last administered on 06/20/18at 20:25; Start 06/08/18 at 00:30 Multi-Ingredient Ointment (Analgesic [place]) 1 jesse PRN QID PRN TP MUSCLE PAIN; Start 06/08/18 at 00:30 Al Hydroxide/Mg Hydroxide (Mylanta Plus Xs) 15 ml PRN AFTMEALHC PRN PO DYSPEPSIA; Start 06/08/18 at 00:30 Magnesium Hydroxide (Milk Of Magnesia) 2,400 mg PRN QHS PRN PO CONSTIPATION; Start 06/08/18 at 00:30 Olanzapine (ZyPREXA ZYDIS) 5 mg QHS PO Last administered on 06/20/18at 20:25; Start 06/08/18 at 21:00 Donepezil HCl (Aricept) 5 mg QHS PO Last administered on 06/20/18at 20:25; Start 06/08/18 at 21:00 Duloxetine HCl (Cymbalta) 60 mg DAILY PO Last administered on 06/20/18at 07:52 ; Start 06/08/18 at 09:00 Oxycodone HCl (Roxicodone) 5 mg PRN Q6HRS PRN PO MODERATE PAIN Last administered on 06/20/18at 13:27; Start 06/08/18 at 01:15 Atorvastatin Calcium (Lipitor) 20 mg QHS PO Last administered on 06/20/18 20: 25; Start 06/08/18 at 21:00 Carbidopa/Levodopa (Sinemet 25/100) 1 tab QID PO Last administered on 20:25; Start 06/08/18 at 09:00 Gabapentin (Neurontin) 100 mg TID PO Last administered on 06/20/18 20:25; Start 06/08/18 at 09:00 Ketorolac Tromethamine (Acular) 1 drop DAILY OS Last administered on 07:52; Start 06/08/18 at 09:00 Prednisolone Acetate (Pred Forte) 1 drop BID OS Last administered on 20:25; Start 06/08/18 at 09:00 Senna/Docusate Sodium (Senna Plus) 1 tab DAILY PO Last administered on 07:49; Start 06/08/18 at 09:00 Tamsulosin HCl (Flomax) 0.4 mg DAILY PO Last administered on 06/14/18 08:51; Start 06/08/18 at 09:00; Stop 06/14/18 at 16:05; Status DC Acetaminophen (Tylenol) 500 mg PRN Q6HRS PRN PO MILD PAIN; Start 06/08/18 at 01:15 Aspirin (Children'S Aspirin) 81 mg DAILYWBKFT PO Last administered on 07:50; Start 06/08/18 at 08:00 Furosemide (Lasix) 40 mg DAILY PO Last administered on 06/20/18 07:50; Start 06/08/18 at 09:00 Guaifenesin/ Codeine Phosphate (Robitussin Ac) 10 ml PRN Q6HRS PRN PO COUGH Last administered on 06/20/18 20:25; Start 06/08/18 at 07:30 Meloxicam (Mobic) 7.5 mg DAILY PO Last administered on 06/20/18 07:49; Start 06/08/18 at 09:00 Multivitamins/ Calcium (Thera-M Plus) 1 tab DAILY PO Last administered on 06/20 07:50; Start 06/08/18 at 09:00 Polyethylene Glycol (miraLAX) 17 gm PRN DAILY PRN PO CONSTIPATION; Start 06/08 at 01:15 Polyethylene Glycol (miraLAX) 17 gm Q48H PO Last administered on 06/20/18at 07: 49; Start 06/08/18 at 09:00 Spironolactone (Aldactone) 25 mg DAILY PO Last administered on 06/20/18at 07:50 ; Start 06/08/18 at 09:00 Vitamin B Complex 1 cap DAILY PO Last administered on 06/20/18at 07:49; Start 06/08/18 at 09:00 Vitamin D (Vitamin D3) 50,000 unit WEEKLY PO Last administered on 06/18/18at 09 :38; Start 06/11/18 at 13:15 Olanzapine (ZyPREXA ZYDIS) 5 mg PRN Q8HRS PRN PO Agitation/Anxiety Last administered on 06/13/18at 17:54; Start 06/13/18 at 17:45 Tamsulosin HCl (Flomax) 0.8 mg DAILY PO Last administered on 06/20/18at 07:50; Start 06/15/18 at 09:00 Buspirone HCl (Buspar) 5 mg BID@0900,1700 PO Last administered on 06/20/18at 17 :15; Start 06/20/18 at 17:00 Active Scripts Active Reported Zyprexa Zydis (Olanzapine) 5 Mg Tab.rapdis 5 Mg PO QHS Vitamin B Complex 1 Each Tablet 1 Each PO DAILY Tamsulosin Hcl 0.4 Mg Cap.er.24h 0.4 Mg PO DAILY Spironolactone 25 Mg Tablet 25 Mg PO DAILY Sinemet 25-100 Mg Tablet (Carbidopa/Levodopa) 1 Each Tablet 1 Each PO QID Senna-Docusate Sodium Tablet (Sennosides/Docusate Sodium) 1 Each Tablet 1 Each PO DAILY Pred Forte (Prednisolone Acetate) 1 Ml Drops.susp 1 Ml OP BID Miralax (Polyethylene Glycol 3350) 17 Gm Powd.pack 17 Gm PO PRN DAILY PRN Oxycodone Hcl 5 Mg Capsule 5 Mg PO PRN Q6HRS PRN Multivitamins (Multivitamin) 1 Each Tablet 1 Each PO DAILY Miralax (Polyethylene Glycol 3350) 17 Gm Powd.pack 17 Gm PO Q48HRS Meloxicam 7.5 Mg Tablet 7.5 Mg PO DAILY Lasix (Furosemide) 40 Mg Tablet 40 Mg PO DAILY Nevanac (Nepafenac) 3 Ml Drops.susp 1 Drop OP DAILY Guaifenesin Ac Cough Syrup (Guaifenesin/Codeine Phosphate) 473 Ml Liquid 2 Tbs PO PRN Q6HRS PRN Gabapentin 100 Mg Capsule 100 Mg PO TID Cymbalta (Duloxetine Hcl) 60 Mg Capsule. 60 Mg PO DAILY Atorvastatin Calcium 20 Mg Tablet 20 Mg PO QHS Aspir-Low (Aspirin) 81 Mg Tablet.dr 81 Mg PO DAILY Aricept (Donepezil Hcl) 5 Mg Tablet 5 Mg PO QHS Acetaminophen 500 Mg Tablet 500 Mg PO PRN Q6HRS PRN I have reviewed the current psychotropics carefully including drug interactions. Risk benefit ratio favors no change other than as noted in my dictated progress note. Diagnosis: Problems: (1) Change in mental status (2) Anxiety disorder (3) Dementia in Alzheimer's disease with delusions (4) Dementia in Alzheimer's disease with depression (5) Lewy body dementia with behavioral disturbance (6) Impulse control disorder REYNALDO MONTERROSO MD Jun 20, 2018 22:55
[2018-06-21 05:34] VITALS: BP 128/78
[2018-06-21] MEDS: MELOXICAM 7.5 MG TABLET PO SCH (07:42)
[2018-06-21] MEDS: busPIRone 5 MG TABLET. PO SCH ×2 (07:42→15:48)
[2018-06-21] MEDS: SENNOSIDES/DOCUSATE 8.6/50MG TABLET. PO SCH (07:42)
[2018-06-21] MEDS: TAMSULOSIN 0.4 MG CAP.ER.24H. PO SCH (07:42)
[2018-06-21] MEDS: CARBIDOPA/LEVODOPA 25/100MG TABLET PO SCH ×4 (07:42→19:17)
[2018-06-21] MEDS: SPIRONOLACTONE 25 MG TABLET PO SCH (07:43)
[2018-06-21] MEDS: GABAPENTIN 100 MG CAPSULE. PO SCH ×3 (07:43→19:17)
[2018-06-21] MEDS: DULoxetine HCL 60 MG CAPSULE.DR PO SCH (07:43)
[2018-06-21] MEDS: ASPIRIN 81 MG TAB.CHEW PO SCH (07:43)
[2018-06-21] MEDS: FUROSEMIDE 40 MG TABLET PO SCH (07:43)
[2018-06-21] MEDS: VITAMIN B COMPLEX CAPSULE. PO SCH (07:43)
[2018-06-21] MEDS: MULTIVITAMIN with MINERAL TABLET. PO SCH (07:43)
[2018-06-21] MEDS: prednisoLONE ACETATE 1% OPHTH SUSPENSION 5ML BOTTLE. OS SCH ×2 (07:48→19:20)
[2018-06-21] MEDS: KETOROLAC TROMETHAMINE 0.5% OPHTH SOLUTION 3ML BOTTLE. OS SCH (07:48)
[2018-06-21] MEDS: ACETAMINOPHEN 325 MG TABLET PO PRN (15:47)
[2018-06-21] MEDS: guaiFENesin/CODEINE 100mg/10mg 5 ML LIQUID PO PRN (15:47)
[2018-06-21 15:51] VITALS: BP 104/55
[2018-06-21] MEDS: DONEPEZIL HCL 5 MG TABLET. PO SCH (19:17)
[2018-06-21] MEDS: ATORVASTATIN CALCIUM 20 MG TABLET PO SCH (19:20)
--- NOTE | 2018-06-21 22:45 | PDOC ---
Exam Note: Franki Note: Please also refer to the separate dictated note~for this date of service dictated separately.~Patient seen individually. Discussed the patient with Nursing staff reviewed the chart.~Reviewed interim history and current functioning. Reviewed vital signs,~Labs/ Radiology~and current medications noted below. Continue current treatment with the changes noted in the dictated addendum note Assessment: Vital Signs: Vital Signs Date Time Temp Pulse Resp B/P (MAP) Pulse Ox O2 Delivery O2 Flow Rate FiO2 06/21/18 15:51 97.4 61 17 104/55 (71) 95 Room Air I&O Intake and Output 06/21/18 07:00 Intake Total 1080 ml Balance 1080 ml Intake Oral 1080 ml # Voids 1 # Bowel Movements 1 Current Medications: Meds: Current Medications Lactated Ringer's 1,000 ml @ 100 mls/hr Q10H IV ; Start 06/07/18 at 19:28; Stop 06/08/18 at 05:27; Status DC Acetaminophen (Tylenol) 650 mg PRN Q6HRS PRN PO PAIN / TEMP Last administered on 06/21/18at 15:47; Start 06/08/18 at 00:30 Multi-Ingredient Ointment (Analgesic [place]) 1 jesse PRN QID PRN TP MUSCLE PAIN; Start 06/08/18 at 00:30 Al Hydroxide/Mg Hydroxide (Mylanta Plus Xs) 15 ml PRN AFTMEALHC PRN PO DYSPEPSIA; Start 06/08/18 at 00:30 Magnesium Hydroxide (Milk Of Magnesia) 2,400 mg PRN QHS PRN PO CONSTIPATION; Start 06/08/18 at 00:30 Olanzapine (ZyPREXA ZYDIS) 5 mg QHS PO Last administered on 06/21/18at 19:17; Start 06/08/18 at 21:00 Donepezil HCl (Aricept) 5 mg QHS PO Last administered on 06/21/18 19:17; Start 06/08/18 at 21:00 Duloxetine HCl (Cymbalta) 60 mg DAILY PO Last administered on 06/21/18at 07:43 ; Start 06/08/18 at 09:00 Oxycodone HCl (Roxicodone) 5 mg PRN Q6HRS PRN PO MODERATE PAIN Last administered on 06/20/18at 13:27; Start 06/08/18 at 01:15 Atorvastatin Calcium (Lipitor) 20 mg QHS PO Last administered on 06/21/18 19: 20; Start 06/08/18 at 21:00 Carbidopa/Levodopa (Sinemet 25/100) 1 tab QID PO Last administered on 19:17; Start 06/08/18 at 09:00 Gabapentin (Neurontin) 100 mg TID PO Last administered on 06/21/18 19:17; Start 06/08/18 at 09:00 Ketorolac Tromethamine (Acular) 1 drop DAILY OS Last administered on 07:48; Start 06/08/18 at 09:00 Prednisolone Acetate (Pred Forte) 1 drop BID OS Last administered on 19:20; Start 06/08/18 at 09:00 Senna/Docusate Sodium (Senna Plus) 1 tab DAILY PO Last administered on 07:42; Start 06/08/18 at 09:00 Tamsulosin HCl (Flomax) 0.4 mg DAILY PO Last administered on 06/14/18 08:51; Start 06/08/18 at 09:00; Stop 06/14/18 at 16:05; Status DC Acetaminophen (Tylenol) 500 mg PRN Q6HRS PRN PO MILD PAIN; Start 06/08/18 at 01:15 Aspirin (Children'S Aspirin) 81 mg DAILYWBKFT PO Last administered on 07:43; Start 06/08/18 at 08:00 Furosemide (Lasix) 40 mg DAILY PO Last administered on 06/21/18 07:43; Start 06/08/18 at 09:00 Guaifenesin/ Codeine Phosphate (Robitussin Ac) 10 ml PRN Q6HRS PRN PO COUGH Last administered on 06/21/18 15:47; Start 06/08/18 at 07:30 Meloxicam (Mobic) 7.5 mg DAILY PO Last administered on 06/21/18 07:42; Start 06/08/18 at 09:00 Multivitamins/ Calcium (Thera-M Plus) 1 tab DAILY PO Last administered on 06/21 07:43; Start 06/08/18 at 09:00 Polyethylene Glycol (miraLAX) 17 gm PRN DAILY PRN PO CONSTIPATION; Start 06/08 at 01:15 Polyethylene Glycol (miraLAX) 17 gm Q48H PO Last administered on 06/20/18at 07: 49; Start 06/08/18 at 09:00 Spironolactone (Aldactone) 25 mg DAILY PO Last administered on 06/21/18 07:43 ; Start 06/08/18 at 09:00 Vitamin B Complex 1 cap DAILY PO Last administered on 06/21/18 07:43; Start 06/08/18 at 09:00 Vitamin D (Vitamin D3) 50,000 unit WEEKLY PO Last administered on 06/18/18at 09 :38; Start 06/11/18 at 13:15 Olanzapine (ZyPREXA ZYDIS) 5 mg PRN Q8HRS PRN PO Agitation/Anxiety Last administered on 06/13/18at 17:54; Start 06/13/18 at 17:45 Tamsulosin HCl (Flomax) 0.8 mg DAILY PO Last administered on 06/21/18at 07:42; Start 06/15/18 at 09:00 Buspirone HCl (Buspar) 5 mg BID@0900,1700 PO Last administered on 06/21/18at 15 :48; Start 06/20/18 at 17:00 Active Scripts Active Reported Zyprexa Zydis (Olanzapine) 5 Mg Tab.rapdis 5 Mg PO QHS Vitamin B Complex 1 Each Tablet 1 Each PO DAILY Tamsulosin Hcl 0.4 Mg Cap.er.24h 0.4 Mg PO DAILY Spironolactone 25 Mg Tablet 25 Mg PO DAILY Sinemet 25-100 Mg Tablet (Carbidopa/Levodopa) 1 Each Tablet 1 Each PO QID Senna-Docusate Sodium Tablet (Sennosides/Docusate Sodium) 1 Each Tablet 1 Each PO DAILY Pred Forte (Prednisolone Acetate) 1 Ml Drops.susp 1 Ml OP BID Miralax (Polyethylene Glycol 3350) 17 Gm Powd.pack 17 Gm PO PRN DAILY PRN Oxycodone Hcl 5 Mg Capsule 5 Mg PO PRN Q6HRS PRN Multivitamins (Multivitamin) 1 Each Tablet 1 Each PO DAILY Miralax (Polyethylene Glycol 3350) 17 Gm Powd.pack 17 Gm PO Q48HRS Meloxicam 7.5 Mg Tablet 7.5 Mg PO DAILY Lasix (Furosemide) 40 Mg Tablet 40 Mg PO DAILY Nevanac (Nepafenac) 3 Ml Drops.susp 1 Drop OP DAILY Guaifenesin Ac Cough Syrup (Guaifenesin/Codeine Phosphate) 473 Ml Liquid 2 Tbs PO PRN Q6HRS PRN Gabapentin 100 Mg Capsule 100 Mg PO TID Cymbalta (Duloxetine Hcl) 60 Mg Capsule. 60 Mg PO DAILY Atorvastatin Calcium 20 Mg Tablet 20 Mg PO QHS Aspir-Low (Aspirin) 81 Mg Tablet.dr 81 Mg PO DAILY Aricept (Donepezil Hcl) 5 Mg Tablet 5 Mg PO QHS Acetaminophen 500 Mg Tablet 500 Mg PO PRN Q6HRS PRN I have reviewed the current psychotropics carefully including drug interactions. Risk benefit ratio favors no change other than as noted in my dictated progress note. Diagnosis: Problems: (1) Change in mental status (2) Anxiety disorder (3) Dementia in Alzheimer's disease with delusions (4) Dementia in Alzheimer's disease with depression (5) Lewy body dementia with behavioral disturbance (6) Impulse control disorder REYNALDO MONTERROSO MD Jun 21, 2018 22:45
--- NOTE | 2018-06-22 04:12 | PN ---
DATE: 06/20/2018 PSYCHIATRIC PROGRESS NOTE This late entry of 06/20/2018 covers elements not covered in my initial note. SUBJECTIVE: I met with the patient in the evening and staffed at treatment team meeting earlier in the day. The patient slept 7-1/2 hours previous evening, cooperative, pleasant, somewhat confused. Urine culture is negative. REVIEW OF SYSTEMS: Ambulation impaired, in wheelchair. No CV, , pulmonary, eye, ENT system symptoms on review. MENTAL STATUS EXAM: Oriented to himself, situation. Insight, judgment, recent memory is impaired. Language function intact. Attention span short. Mood and affect remain somewhat anxious. LABORATORY DATA: Reviewed. IMPRESSION: Unchanged from initial note. PLAN: Start BuSpar 5 mg 9:00 a.m., 5:00 p.m. Continue rest unchanged from initial note. MAN AnaliliaJohanny MONTERROSO MD DR: RAMIREZ/yovani JOB#: [id number] / [id number]
[2018-06-22 06:23] VITALS: BP 164/78
[2018-06-22] MEDS: FUROSEMIDE 40 MG TABLET PO SCH (08:00)
[2018-06-22] MEDS: TAMSULOSIN 0.4 MG CAP.ER.24H. PO SCH (08:00)
[2018-06-22] MEDS: GABAPENTIN 100 MG CAPSULE. PO SCH ×3 (08:00→19:19)
[2018-06-22] MEDS: MULTIVITAMIN with MINERAL TABLET. PO SCH (08:00)
[2018-06-22] MEDS: busPIRone 5 MG TABLET. PO SCH ×2 (08:01→16:12)
[2018-06-22] MEDS: VITAMIN B COMPLEX CAPSULE. PO SCH (08:01)
[2018-06-22] MEDS: SPIRONOLACTONE 25 MG TABLET PO SCH (08:01)
[2018-06-22] MEDS: SENNOSIDES/DOCUSATE 8.6/50MG TABLET. PO SCH (08:01)
[2018-06-22] MEDS: MELOXICAM 7.5 MG TABLET PO SCH (08:01)
[2018-06-22] MEDS: DULoxetine HCL 60 MG CAPSULE.DR PO SCH (08:02)
[2018-06-22] MEDS: ASPIRIN 81 MG TAB.CHEW PO SCH (08:02)
[2018-06-22] MEDS: CARBIDOPA/LEVODOPA 25/100MG TABLET PO SCH ×4 (08:02→19:19)
[2018-06-22] MEDS: POLYETHYLENE GLYCOL 3350 17 GM PACKET. PO SCH (08:02)
[2018-06-22] MEDS: KETOROLAC TROMETHAMINE 0.5% OPHTH SOLUTION 3ML BOTTLE. OS SCH (08:03)
[2018-06-22] MEDS: prednisoLONE ACETATE 1% OPHTH SUSPENSION 5ML BOTTLE. OS SCH ×2 (08:03→19:20)
[2018-06-22 09:40] LABS: BASO % 1 % (0-3); EOS # 0.2 x10^3/uL (0.0-0.7); EOS % 2 % (0-3); HEMATOCRIT 36.6 % (39.0-53.0); HEMOGLOBIN 12.7 g/dL (13.0-17.5); LYMPH # 1.1 x10^3/uL (1.0-4.8); LYMPH % 11 % (24-48); MEAN CORPUSCULAR HEMOGLOBIN 34 pg (25-35); MEAN CORPUSCULAR HGB CONC 35 g/dL (31-37); MEAN CORPUSCULAR VOLUME 98 fL (79-100); MONO # 0.6 x10^3/uL (0.0-1.1); MONO % 6 % (0-9); NEUT # 8.4 x10^3uL (1.8-7.7); NEUT % 80 % (31-73); PLATELET COUNT 205 x10^3/uL (140-400); RED BLOOD COUNT 3.74 x10^6/uL (4.30-5.70); RED CELL DISTRIBUTION WIDTH 14.1 % (11.5-14.5); WHITE BLOOD COUNT 10.4 x10^3/uL (4.0-11.0)
[2018-06-22 09:51] LABS: ALBUMIN 3.1 g/dL (3.4-5.0); ALBUMIN/GLOBULIN RATIO 0.9 (1.0-1.7); CALCIUM 9.4 mg/dL (8.5-10.1); CREATININE 0.9 mg/dL (0.7-1.3); GFR 81.4; MAGNESIUM 2.4 mg/dL (1.8-2.4); POTASSIUM 4.2 mmol/L (3.5-5.1); TOTAL BILIRUBIN 0.4 mg/dL (0.2-1.0); TOTAL PROTEIN 6.7 g/dL (6.4-8.2)
[2018-06-22 16:00] VITALS: BP 120/81
--- NOTE | 2018-06-22 16:24 | PN ---
DATE: 06/21/2018 PSYCHIATRIC PROGRESS NOTE This late entry 06/21/2018 covers elements not covered in my initial note. SUBJECTIVE: I met with the patient at length in his room. The patient slept 6-1/2 hours previous evening. 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 REVIEW OF SYSTEMS: No CV, , pulmonary, eye, ENT system symptoms on review. Reliability varies. Gait unsteady, in wheelchair. MENTAL STATUS EXAM: Oriented to himself and situation. Speech is coherent, can be pressured at times. Abstraction fair, computation impaired, language function intact, attention span short. Mood and affect remain somewhat anxious at times, but less lability evident. LABORATORY DATA: Reviewed. IMPRESSION: Major neurocognitive disorder, early Lewy body with delusion, depression; anxiety disorder, unspecified. Rest unchanged. PLAN: No change from initial note. Continue Aricept, Cymbalta. He is also on Neurontin, Sinemet, and BuSpar. MAN Rhona MONTERROSO MD DR: RAMIREZ/yovani JOB#: [id number] / [id number]
[2018-06-22] MEDS: ATORVASTATIN CALCIUM 20 MG TABLET PO SCH (19:19)
[2018-06-22] MEDS: DONEPEZIL HCL 5 MG TABLET. PO SCH (19:19)
[2018-06-22] MEDS: ACETAMINOPHEN 325 MG TABLET PO PRN (19:44)
[2018-06-22] MEDS: guaiFENesin/CODEINE 100mg/10mg 5 ML LIQUID PO PRN (19:44)
--- NOTE | 2018-06-22 22:34 | PDOC ---
Exam Note: Franki Note: Please also refer to the separate dictated note~for this date of service dictated separately.~Patient seen individually. Discussed the patient with Nursing staff reviewed the chart.~Reviewed interim history and current functioning. Reviewed vital signs,~Labs/ Radiology~and current medications noted below. Continue current treatment with the changes noted in the dictated addendum note Assessment: Vital Signs: Vital Signs Date Time Temp Pulse Resp B/P (MAP) Pulse Ox O2 Delivery O2 Flow Rate FiO2 06/22/18 16:00 97.6 66 20 120/81 (94) 97 Room Air I&O Intake and Output 06/22/18 07:00 Intake Total 1440 ml Balance 1440 ml Intake Oral 1440 ml # Voids 1 # Bowel Movements 2 Labs: Laboratory Tests Test 06/22/18 09:20 White Blood Count 10.4 x10^3/uL (4.0-11.0) Red Blood Count 3.74 x10^6/uL (4.30-5.70) L Hemoglobin 12.7 g/dL (13.0-17.5) L Hematocrit 36.6 % (39.0-53.0) L Mean Corpuscular Volume 98 fL (79-100) Mean Corpuscular Hemoglobin 34 pg (25-35) Mean Corpuscular Hemoglobin Concent 35 g/dL (31-37) Red Cell Distribution Width 14.1 % (11.5-14.5) Platelet Count 205 x10^3/uL (140-400) Neutrophils (%) (Auto) 80 % (31-73) H Lymphocytes (%) (Auto) 11 % (24-48) L Monocytes (%) (Auto) 6 % (0-9) Eosinophils (%) (Auto) 2 % (0-3) Basophils (%) (Auto) 1 % (0-3) Neutrophils # (Auto) 8.4 x10^3uL (1.8-7.7) H Lymphocytes # (Auto) 1.1 x10^3/uL (1.0-4.8) Monocytes # (Auto) 0.6 x10^3/uL (0.0-1.1) Eosinophils # (Auto) 0.2 x10^3/uL (0.0-0.7) Basophils # (Auto) 0.0 x10^3/uL (0.0-0.2) Sodium Level 138 mmol/L (136-145) Potassium Level 4.2 mmol/L (3.5-5.1) Chloride Level 103 mmol/L (98-107) Carbon Dioxide Level 34 mmol/L (21-32) H Anion Gap 1 (6-14) L Blood Urea Nitrogen 14 mg/dL (8-26) Creatinine 0.9 mg/dL (0.7-1.3) Estimated GFR (Cockcroft-Gault) 81.4 BUN/Creatinine Ratio 16 (6-20) Glucose Level 140 mg/dL (70-99) H Calcium Level 9.4 mg/dL (8.5-10.1) Magnesium Level 2.4 mg/dL (1.8-2.4) Total Bilirubin 0.4 mg/dL (0.2-1.0) Aspartate Amino Transferase (AST) 20 U/L (15-37) Alanine Aminotransferase (ALT) 25 U/L (16-63) Alkaline Phosphatase 82 U/L (46-116) Total Protein 6.7 g/dL (6.4-8.2) Albumin 3.1 g/dL (3.4-5.0) L Albumin/Globulin Ratio 0.9 (1.0-1.7) L Current Medications: Meds: Current Medications Lactated Ringer's 1,000 ml @ 100 mls/hr Q10H IV ; Start 06/07/18 at 19:28; Stop 06/08/18 at 05:27; Status DC Acetaminophen (Tylenol) 650 mg PRN Q6HRS PRN PO PAIN / TEMP Last administered on 06/22/18at 19:44; Start 06/08/18 at 00:30 Multi-Ingredient Ointment (Analgesic [place]) 1 jesse PRN QID PRN TP MUSCLE PAIN; Start 06/08/18 at 00:30 Al Hydroxide/Mg Hydroxide (Mylanta Plus Xs) 15 ml PRN AFTMEALHC PRN PO DYSPEPSIA; Start 06/08/18 at 00:30 Magnesium Hydroxide (Milk Of Magnesia) 2,400 mg PRN QHS PRN PO CONSTIPATION; Start 06/08/18 at 00:30 Olanzapine (ZyPREXA ZYDIS) 5 mg QHS PO Last administered on 06/22/18at 19:19; Start 06/08/18 at 21:00 Donepezil HCl (Aricept) 5 mg QHS PO Last administered on 06/22/18 19:19; Start 06/08/18 at 21:00 Duloxetine HCl (Cymbalta) 60 mg DAILY PO Last administered on 06/22/18 08:02 ; Start 06/08/18 at 09:00 Oxycodone HCl (Roxicodone) 5 mg PRN Q6HRS PRN PO MODERATE PAIN Last administered on 06/20/18 13:27; Start 06/08/18 at 01:15 Atorvastatin Calcium (Lipitor) 20 mg QHS PO Last administered on 06/22/18 19: 19; Start 06/08/18 at 21:00 Carbidopa/Levodopa (Sinemet 25/100) 1 tab QID PO Last administered on 19:19; Start 06/08/18 at 09:00 Gabapentin (Neurontin) 100 mg TID PO Last administered on 06/22/18 19:19; Start 06/08/18 at 09:00 Ketorolac Tromethamine (Acular) 1 drop DAILY OS Last administered on 08:03; Start 06/08/18 at 09:00 Prednisolone Acetate (Pred Forte) 1 drop BID OS Last administered on 19:20; Start 06/08/18 at 09:00 Senna/Docusate Sodium (Senna Plus) 1 tab DAILY PO Last administered on 08:01; Start 06/08/18 at 09:00 Tamsulosin HCl (Flomax) 0.4 mg DAILY PO Last administered on 06/14/18 08:51; Start 06/08/18 at 09:00; Stop 06/14/18 at 16:05; Status DC Acetaminophen (Tylenol) 500 mg PRN Q6HRS PRN PO MILD PAIN Last administered on 06/22/18 08:12; Start 06/08/18 at 01:15 Aspirin (Children'S Aspirin) 81 mg DAILYWBKFT PO Last administered on 08:02; Start 06/08/18 at 08:00 Furosemide (Lasix) 40 mg DAILY PO Last administered on 06/22/18 08:00; Start 06/08/18 at 09:00 Guaifenesin/ Codeine Phosphate (Robitussin Ac) 10 ml PRN Q6HRS PRN PO COUGH Last administered on 06/22/18 19:44; Start 06/08/18 at 07:30 Meloxicam (Mobic) 7.5 mg DAILY PO Last administered on 06/22/18 08:01; Start 06/08/18 at 09:00 Multivitamins/ Calcium (Thera-M Plus) 1 tab DAILY PO Last administered on 06/22 08:00; Start 06/08/18 at 09:00 Polyethylene Glycol (miraLAX) 17 gm PRN DAILY PRN PO CONSTIPATION; Start 06/08 at 01:15 Polyethylene Glycol (miraLAX) 17 gm Q48H PO Last administered on 06/22/18 08: 02; Start 06/08/18 at 09:00 Spironolactone (Aldactone) 25 mg DAILY PO Last administered on 06/22/18 08:01 ; Start 06/08/18 at 09:00 Vitamin B Complex 1 cap DAILY PO Last administered on 06/22/18 08:01; Start 06/08/18 at 09:00 Vitamin D (Vitamin D3) 50,000 unit WEEKLY PO Last administered on 06/18/18 09 :38; Start 06/11/18 at 13:15 Olanzapine (ZyPREXA ZYDIS) 5 mg PRN Q8HRS PRN PO Agitation/Anxiety Last administered on 06/13/18 17:54; Start 06/13/18 at 17:45 Tamsulosin HCl (Flomax) 0.8 mg DAILY PO Last administered on 06/22/18 08:00; Start 06/15/18 at 09:00 Buspirone HCl (Buspar) 5 mg BID@0900,1700 PO Last administered on 06/22/18 16 :12; Start 06/20/18 at 17:00 Active Scripts Active Reported Zyprexa Zydis (Olanzapine) 5 Mg Tab.rapdis 5 Mg PO QHS Vitamin B Complex 1 Each Tablet 1 Each PO DAILY Tamsulosin Hcl 0.4 Mg Cap.er.24h 0.4 Mg PO DAILY Spironolactone 25 Mg Tablet 25 Mg PO DAILY Sinemet 25-100 Mg Tablet (Carbidopa/Levodopa) 1 Each Tablet 1 Each PO QID Senna-Docusate Sodium Tablet (Sennosides/Docusate Sodium) 1 Each Tablet 1 Each PO DAILY Pred Forte (Prednisolone Acetate) 1 Ml Drops.susp 1 Ml OP BID Miralax (Polyethylene Glycol 3350) 17 Gm Powd.pack 17 Gm PO PRN DAILY PRN Oxycodone Hcl 5 Mg Capsule 5 Mg PO PRN Q6HRS PRN Multivitamins (Multivitamin) 1 Each Tablet 1 Each PO DAILY Miralax (Polyethylene Glycol 3350) 17 Gm Powd.pack 17 Gm PO Q48HRS Meloxicam 7.5 Mg Tablet 7.5 Mg PO DAILY Lasix (Furosemide) 40 Mg Tablet 40 Mg PO DAILY Nevanac (Nepafenac) 3 Ml Drops.susp 1 Drop OP DAILY Guaifenesin Ac Cough Syrup (Guaifenesin/Codeine Phosphate) 473 Ml Liquid 2 Tbs PO PRN Q6HRS PRN Gabapentin 100 Mg Capsule 100 Mg PO TID Cymbalta (Duloxetine Hcl) 60 Mg Capsule. 60 Mg PO DAILY Atorvastatin Calcium 20 Mg Tablet 20 Mg PO QHS Aspir-Low (Aspirin) 81 Mg Tablet. 81 Mg PO DAILY Aricept (Donepezil Hcl) 5 Mg Tablet 5 Mg PO QHS Acetaminophen 500 Mg Tablet 500 Mg PO PRN Q6HRS PRN I have reviewed the current psychotropics carefully including drug interactions. Risk benefit ratio favors no change other than as noted in my dictated progress note. Diagnosis: Problems: (1) Change in mental status (2) Anxiety disorder (3) Dementia in Alzheimer's disease with delusions (4) Dementia in Alzheimer's disease with depression (5) Lewy body dementia with behavioral disturbance (6) Impulse control disorder REYNALDO MONTERROSO MD Jun 22, 2018 22:34
[2018-06-23 06:22] VITALS: BP 144/63
[2018-06-23] MEDS: ASPIRIN 81 MG TAB.CHEW PO SCH (08:58)
[2018-06-23] MEDS: VITAMIN B COMPLEX CAPSULE. PO SCH (08:59)
[2018-06-23] MEDS: prednisoLONE ACETATE 1% OPHTH SUSPENSION 5ML BOTTLE. OS SCH ×2 (08:59→19:45)
[2018-06-23] MEDS: SPIRONOLACTONE 25 MG TABLET PO SCH (08:59)
[2018-06-23] MEDS: KETOROLAC TROMETHAMINE 0.5% OPHTH SOLUTION 3ML BOTTLE. OS SCH (08:59)
[2018-06-23] MEDS: TAMSULOSIN 0.4 MG CAP.ER.24H. PO SCH (09:02)
[2018-06-23] MEDS: DULoxetine HCL 60 MG CAPSULE.DR PO SCH (09:02)
[2018-06-23] MEDS: busPIRone 5 MG TABLET. PO SCH ×2 (09:02→16:29)
[2018-06-23] MEDS: MULTIVITAMIN with MINERAL TABLET. PO SCH (09:03)
[2018-06-23] MEDS: GABAPENTIN 100 MG CAPSULE. PO SCH ×3 (09:03→19:44)
[2018-06-23] MEDS: MELOXICAM 7.5 MG TABLET PO SCH (09:03)
[2018-06-23] MEDS: CARBIDOPA/LEVODOPA 25/100MG TABLET PO SCH ×4 (09:03→19:44)
[2018-06-23] MEDS: SENNOSIDES/DOCUSATE 8.6/50MG TABLET. PO SCH (09:03)
[2018-06-23] MEDS: FUROSEMIDE 40 MG TABLET PO SCH (09:03)
[2018-06-23 15:52] VITALS: BP 124/79
[2018-06-23] MEDS: DONEPEZIL HCL 5 MG TABLET. PO SCH (19:44)
[2018-06-23] MEDS: ATORVASTATIN CALCIUM 20 MG TABLET PO SCH (19:44)
[2018-06-23] MEDS: ACETAMINOPHEN 325 MG TABLET PO PRN (19:59)
[2018-06-23] MEDS: guaiFENesin/CODEINE 100mg/10mg 5 ML LIQUID PO PRN (19:59)
--- NOTE | 2018-06-23 21:45 | PDOC ---
Exam Note: Franki Note: Please also refer to the separate dictated note~for this date of service dictated separately.~Patient seen individually. Discussed the patient with Nursing staff reviewed the chart.~Reviewed interim history and current functioning. Reviewed vital signs,~Labs/ Radiology~and current medications noted below. Continue current treatment with the changes noted in the dictated addendum note Assessment: Vital Signs: Vital Signs Date Time Temp Pulse Resp B/P (MAP) Pulse Ox O2 Delivery O2 Flow Rate FiO2 06/23/18 15:52 98.1 74 19 124/79 (94) 93 Room Air I&O Intake and Output 06/23/18 07:00 Intake Total 1080 ml Balance 1080 ml Intake Oral 1080 ml # Bowel Movements 2 Current Medications: Meds: Current Medications Lactated Ringer's 1,000 ml @ 100 mls/hr Q10H IV ; Start 06/07/18 at 19:28; Stop 06/08/18 at 05:27; Status DC Acetaminophen (Tylenol) 650 mg PRN Q6HRS PRN PO PAIN / TEMP Last administered on 06/23/18at 19:59; Start 06/08/18 at 00:30 Multi-Ingredient Ointment (Analgesic [place]) 1 jesse PRN QID PRN TP MUSCLE PAIN; Start 06/08/18 at 00:30 Al Hydroxide/Mg Hydroxide (Mylanta Plus Xs) 15 ml PRN AFTMEALHC PRN PO DYSPEPSIA; Start 06/08/18 at 00:30 Magnesium Hydroxide (Milk Of Magnesia) 2,400 mg PRN QHS PRN PO CONSTIPATION; Start 06/08/18 at 00:30 Olanzapine (ZyPREXA ZYDIS) 5 mg QHS PO Last administered on 06/23/18at 19:44; Start 06/08/18 at 21:00 Donepezil HCl (Aricept) 5 mg QHS PO Last administered on 06/23/18 19:44; Start 06/08/18 at 21:00 Duloxetine HCl (Cymbalta) 60 mg DAILY PO Last administered on 06/23/18at 09:02; Start 06/08/18 at 09:00 Oxycodone HCl (Roxicodone) 5 mg PRN Q6HRS PRN PO MODERATE PAIN Last administered on 06/20/18at 13:27; Start 06/08/18 at 01:15 Atorvastatin Calcium (Lipitor) 20 mg QHS PO Last administered on 06/23/18 19: 44; Start 06/08/18 at 21:00 Carbidopa/Levodopa (Sinemet 25/100) 1 tab QID PO Last administered on 19:44; Start 06/08/18 at 09:00 Gabapentin (Neurontin) 100 mg TID PO Last administered on 06/23/18 19:44; Start 06/08/18 at 09:00 Ketorolac Tromethamine (Acular) 1 drop DAILY OS Last administered on 06/23/18 08:59; Start 06/08/18 at 09:00 Prednisolone Acetate (Pred Forte) 1 drop BID OS Last administered on 06/23/18 19:45; Start 06/08/18 at 09:00 Senna/Docusate Sodium (Senna Plus) 1 tab DAILY PO Last administered on 09:03; Start 06/08/18 at 09:00 Tamsulosin HCl (Flomax) 0.4 mg DAILY PO Last administered on 06/14/18at 08:51; Start 06/08/18 at 09:00; Stop 06/14/18 at 16:05; Status DC Acetaminophen (Tylenol) 500 mg PRN Q6HRS PRN PO MILD PAIN Last administered on 06/22/18 08:12; Start 06/08/18 at 01:15 Aspirin (Children'S Aspirin) 81 mg DAILYWBKFT PO Last administered on 08:58; Start 06/08/18 at 08:00 Furosemide (Lasix) 40 mg DAILY PO Last administered on 06/23/18 09:03; Start 06/08/18 at 09:00 Guaifenesin/ Codeine Phosphate (Robitussin Ac) 10 ml PRN Q6HRS PRN PO COUGH Last administered on 06/23/18 19:59; Start 06/08/18 at 07:30 Meloxicam (Mobic) 7.5 mg DAILY PO Last administered on 06/23/18 09:03; Start 06/08/18 at 09:00 Multivitamins/ Calcium (Thera-M Plus) 1 tab DAILY PO Last administered on 09:03; Start 06/08/18 at 09:00 Polyethylene Glycol (miraLAX) 17 gm PRN DAILY PRN PO CONSTIPATION; Start 06/08 at 01:15 Polyethylene Glycol (miraLAX) 17 gm Q48H PO Last administered on 06/22/18at 08: 02; Start 06/08/18 at 09:00 Spironolactone (Aldactone) 25 mg DAILY PO Last administered on 06/23/18at 08:59 ; Start 06/08/18 at 09:00 Vitamin B Complex 1 cap DAILY PO Last administered on 06/23/18at 08:59; Start 06/08/18 at 09:00 Vitamin D (Vitamin D3) 50,000 unit WEEKLY PO Last administered on 06/18/18at 09 :38; Start 06/11/18 at 13:15 Olanzapine (ZyPREXA ZYDIS) 5 mg PRN Q8HRS PRN PO Agitation/Anxiety Last administered on 06/13/18at 17:54; Start 06/13/18 at 17:45 Tamsulosin HCl (Flomax) 0.8 mg DAILY PO Last administered on 06/23/18at 09:02; Start 06/15/18 at 09:00 Buspirone HCl (Buspar) 5 mg BID@0900,1700 PO Last administered on 06/23/18at 16: 29; Start 06/20/18 at 17:00 Active Scripts Active Reported Zyprexa Zydis (Olanzapine) 5 Mg Tab.rapdis 5 Mg PO QHS Vitamin B Complex 1 Each Tablet 1 Each PO DAILY Tamsulosin Hcl 0.4 Mg Cap.er.24h 0.4 Mg PO DAILY Spironolactone 25 Mg Tablet 25 Mg PO DAILY Sinemet 25-100 Mg Tablet (Carbidopa/Levodopa) 1 Each Tablet 1 Each PO QID Senna-Docusate Sodium Tablet (Sennosides/Docusate Sodium) 1 Each Tablet 1 Each PO DAILY Pred Forte (Prednisolone Acetate) 1 Ml Drops.susp 1 Ml OP BID Miralax (Polyethylene Glycol 3350) 17 Gm Powd.pack 17 Gm PO PRN DAILY PRN Oxycodone Hcl 5 Mg Capsule 5 Mg PO PRN Q6HRS PRN Multivitamins (Multivitamin) 1 Each Tablet 1 Each PO DAILY Miralax (Polyethylene Glycol 3350) 17 Gm Powd.pack 17 Gm PO Q48HRS Meloxicam 7.5 Mg Tablet 7.5 Mg PO DAILY Lasix (Furosemide) 40 Mg Tablet 40 Mg PO DAILY Nevanac (Nepafenac) 3 Ml Drops.susp 1 Drop OP DAILY Guaifenesin Ac Cough Syrup (Guaifenesin/Codeine Phosphate) 473 Ml Liquid 2 Tbs PO PRN Q6HRS PRN Gabapentin 100 Mg Capsule 100 Mg PO TID Cymbalta (Duloxetine Hcl) 60 Mg Capsule. 60 Mg PO DAILY Atorvastatin Calcium 20 Mg Tablet 20 Mg PO QHS Aspir-Low (Aspirin) 81 Mg Tablet.dr 81 Mg PO DAILY Aricept (Donepezil Hcl) 5 Mg Tablet 5 Mg PO QHS Acetaminophen 500 Mg Tablet 500 Mg PO PRN Q6HRS PRN I have reviewed the current psychotropics carefully including drug interactions. Risk benefit ratio favors no change other than as noted in my dictated progress note. Diagnosis: Problems: (1) Change in mental status (2) Anxiety disorder (3) Dementia in Alzheimer's disease with delusions (4) Dementia in Alzheimer's disease with depression (5) Lewy body dementia with behavioral disturbance (6) Impulse control disorder REYNALDO MONTERROSO MD Jun 23, 2018 21:45
[2018-06-24 05:52] VITALS: BP 154/86
[2018-06-24] MEDS: prednisoLONE ACETATE 1% OPHTH SUSPENSION 5ML BOTTLE. OS SCH ×2 (08:54→20:08)
[2018-06-24] MEDS: KETOROLAC TROMETHAMINE 0.5% OPHTH SOLUTION 3ML BOTTLE. OS SCH (08:54)
[2018-06-24] MEDS: VITAMIN B COMPLEX CAPSULE. PO SCH (08:54)
[2018-06-24] MEDS: ASPIRIN 81 MG TAB.CHEW PO SCH (08:54)
[2018-06-24] MEDS: SPIRONOLACTONE 25 MG TABLET PO SCH (08:54)
[2018-06-24] MEDS: DULoxetine HCL 60 MG CAPSULE.DR PO SCH (08:55)
[2018-06-24] MEDS: busPIRone 5 MG TABLET. PO SCH ×2 (08:55→16:54)
[2018-06-24] MEDS: CARBIDOPA/LEVODOPA 25/100MG TABLET PO SCH ×4 (08:55→20:08)
[2018-06-24] MEDS: GABAPENTIN 100 MG CAPSULE. PO SCH ×3 (08:55→20:08)
[2018-06-24] MEDS: TAMSULOSIN 0.4 MG CAP.ER.24H. PO SCH (08:55)
[2018-06-24] MEDS: MELOXICAM 7.5 MG TABLET PO SCH (08:55)
[2018-06-24] MEDS: SENNOSIDES/DOCUSATE 8.6/50MG TABLET. PO SCH (08:55)
[2018-06-24] MEDS: FUROSEMIDE 40 MG TABLET PO SCH (08:55)
[2018-06-24] MEDS: POLYETHYLENE GLYCOL 3350 17 GM PACKET. PO SCH (08:55)
[2018-06-24] MEDS: MULTIVITAMIN with MINERAL TABLET. PO SCH (08:55)
[2018-06-24 15:47] VITALS: BP 114/74
[2018-06-24] MEDS: ATORVASTATIN CALCIUM 20 MG TABLET PO SCH (20:08)
[2018-06-24] MEDS: DONEPEZIL HCL 5 MG TABLET. PO SCH (20:08)
[2018-06-24] MEDS: ACETAMINOPHEN 325 MG TABLET PO PRN (21:37)
[2018-06-24] MEDS: guaiFENesin/CODEINE 100mg/10mg 5 ML LIQUID PO PRN (21:37)
--- NOTE | 2018-06-24 22:11 | PN ---
DATE: 06/22/2018 This is a late entry for date of service 06/22/2018 and covers elements not covered in my initial note. SUBJECTIVE: I met with the patient in the evening. The patient slept 8-1/4 hours previous night. He has been pleasant, not agitated, aggressive, compliant, but short-term memory is impaired. REVIEW OF SYSTEMS: No CV, , pulmonary, eye, ENT system symptoms on review. Reliability poor. Gait unsteady, in wheelchair. MENTAL STATUS EXAM: Oriented to himself and situation. Insight, judgment, recent memory is impaired. Language function intact. Attention span short. Mood and affect less labile. LABORATORY DATA: Reviewed. IMPRESSION: Major neurocognitive disorder, Alzheimer, vascular with delusion, depression; anxiety disorder, unspecified; impulse control disorder, unspecified. PLAN: Continue Aricept, Cymbalta, Neurontin, and remains on Sinemet along with Zyprexa, BuSpar. Adjust further as clinically indicated. MAN Rhona MONTERROSO MD DR: RAMIREZ/yovani JOB#: [id number] / [id number]
--- NOTE | 2018-06-25 00:26 | PN ---
DATE: 06/23/2018 PSYCHIATRIC PROGRESS NOTE This is a late entry of 06/23/2018, covers elements not covered in my initial note. SUBJECTIVE: I met with the patient in the evening. The patient slept 7-1/2 hours previous night. The patient remains somewhat withdrawn. REVIEW OF SYSTEMS: Ambulation impaired, in wheelchair. No CV, , pulmonary, eye, ENT system symptoms on review. MENTAL STATUS EXAM: Oriented to himself and situation. Speech moderate latency, coherent. Abstraction fair, computation impaired, language function intact, attention span short. Mood and affect remain somewhat anxious, at times labile. LABORATORY DATA: Reviewed. IMPRESSION: Unchanged from initial note. PLAN: No change from initial note. MAN Rhona MONTERROSO MD DR: RAMIREZ/yovani JOB#: [id number] / [id number]
[2018-06-25 05:51] VITALS: BP 120/71
[2018-06-25] MEDS: prednisoLONE ACETATE 1% OPHTH SUSPENSION 5ML BOTTLE. OS SCH ×2 (08:21→19:28)
[2018-06-25] MEDS: KETOROLAC TROMETHAMINE 0.5% OPHTH SOLUTION 3ML BOTTLE. OS SCH (08:21)
[2018-06-25] MEDS: ASPIRIN 81 MG TAB.CHEW PO SCH (08:21)
[2018-06-25] MEDS: VITAMIN B COMPLEX CAPSULE. PO SCH (08:21)
[2018-06-25] MEDS: SPIRONOLACTONE 25 MG TABLET PO SCH (08:21)
[2018-06-25] MEDS: FUROSEMIDE 40 MG TABLET PO SCH (08:22)
[2018-06-25] MEDS: busPIRone 5 MG TABLET. PO SCH ×2 (08:22→16:56)
[2018-06-25] MEDS: DULoxetine HCL 60 MG CAPSULE.DR PO SCH (08:22)
[2018-06-25] MEDS: MELOXICAM 7.5 MG TABLET PO SCH (08:22)
[2018-06-25] MEDS: TAMSULOSIN 0.4 MG CAP.ER.24H. PO SCH (08:22)
[2018-06-25] MEDS: CARBIDOPA/LEVODOPA 25/100MG TABLET PO SCH ×4 (08:23→19:28)
[2018-06-25] MEDS: SENNOSIDES/DOCUSATE 8.6/50MG TABLET. PO SCH (08:23)
[2018-06-25] MEDS: CHOLECALCIFEROL (VITAMIN D3) 50,000 UNIT CAPSULE PO SCH (08:23)
[2018-06-25] MEDS: MULTIVITAMIN with MINERAL TABLET. PO SCH (08:23)
[2018-06-25] MEDS: GABAPENTIN 100 MG CAPSULE. PO SCH ×3 (08:23→19:28)
--- NOTE | 2018-06-25 10:09 | PDOC ---
Exam Note: Franki Note: Late entry for DOS 06/24/2018. Please also refer to the separate dictated note~ for this date of service dictated separately.~Patient seen individually. Discussed the patient with Nursing staff reviewed the chart.~Reviewed interim history and current functioning. Reviewed vital signs,~Labs/ Radiology~and current medications noted below. Continue current treatment with the changes noted in the dictated addendum note Assessment: Vital Signs: VS - Last 72 Hours, by Label Date Time Temp Pulse Resp B/P (MAP) Pulse Ox O2 Delivery O2 Flow Rate FiO2 06/25/18 05:51 97.0 61 18 120/71 (87) 94 06/24/18 15:47 98.2 63 20 114/74 (87) 95 06/24/18 05:52 96.7 58 20 154/86 (108) 97 06/23/18 15:52 98.1 74 19 124/79 (94) 93 Room Air 06/23/18 09:01 63 06/23/18 06:22 97.4 54 18 144/63 (90) 96 06/22/18 16:00 97.6 66 20 120/81 (94) 97 Room Air Vital Signs Date Time Temp Pulse Resp B/P (MAP) Pulse Ox O2 Delivery O2 Flow Rate FiO2 06/25/18 05:51 97.0 61 18 120/71 (87) 94 06/23/18 15:52 Room Air I&O Intake and Output 06/25/18 07:00 Intake Total 1080 ml Balance 1080 ml Intake Oral 1080 ml # Bowel Movements 5 Current Medications: Meds: Current Medications Lactated Ringer's 1,000 ml @ 100 mls/hr Q10H IV ; Start 06/07/18 at 19:28; Stop 06/08/18 at 05:27; Status DC Acetaminophen (Tylenol) 650 mg PRN Q6HRS PRN PO PAIN / TEMP Last administered on 06/24/18at 21:37; Start 06/08/18 at 00:30 Multi-Ingredient Ointment (Analgesic [place]) 1 jesse PRN QID PRN TP MUSCLE PAIN; Start 06/08/18 at 00:30 Al Hydroxide/Mg Hydroxide (Mylanta Plus Xs) 15 ml PRN AFTMEALHC PRN PO DYSPEPSIA; Start 06/08/18 at 00:30 Magnesium Hydroxide (Milk Of Magnesia) 2,400 mg PRN QHS PRN PO CONSTIPATION; Start 06/08/18 at 00:30 Olanzapine (ZyPREXA ZYDIS) 5 mg QHS PO Last administered on 06/24/18 20:08; Start 06/08/18 at 21:00 Donepezil HCl (Aricept) 5 mg QHS PO Last administered on 06/24/18 20:08; Start 06/08/18 at 21:00 Duloxetine HCl (Cymbalta) 60 mg DAILY PO Last administered on 06/25/18 08:22; Start 06/08/18 at 09:00 Oxycodone HCl (Roxicodone) 5 mg PRN Q6HRS PRN PO MODERATE PAIN Last administered on 06/20/18 13:27; Start 06/08/18 at 01:15 Atorvastatin Calcium (Lipitor) 20 mg QHS PO Last administered on 06/24/18 20: 08; Start 06/08/18 at 21:00 Carbidopa/Levodopa (Sinemet 25/100) 1 tab QID PO Last administered on 08:23; Start 06/08/18 at 09:00 Gabapentin (Neurontin) 100 mg TID PO Last administered on 06/25/18 08:23; Start 06/08/18 at 09:00 Ketorolac Tromethamine (Acular) 1 drop DAILY OS Last administered on 06/25/18 08:21; Start 06/08/18 at 09:00 Prednisolone Acetate (Pred Forte) 1 drop BID OS Last administered on 06/25/18 08:21; Start 06/08/18 at 09:00 Senna/Docusate Sodium (Senna Plus) 1 tab DAILY PO Last administered on 08:23; Start 06/08/18 at 09:00 Tamsulosin HCl (Flomax) 0.4 mg DAILY PO Last administered on 06/14/18at 08:51; Start 06/08/18 at 09:00; Stop 06/14/18 at 16:05; Status DC Acetaminophen (Tylenol) 500 mg PRN Q6HRS PRN PO MILD PAIN Last administered on 06/22/18 08:12; Start 06/08/18 at 01:15 Aspirin (Children'S Aspirin) 81 mg DAILYWBKFT PO Last administered on 08:21; Start 06/08/18 at 08:00 Furosemide (Lasix) 40 mg DAILY PO Last administered on 06/25/18 08:22; Start 06/08/18 at 09:00 Guaifenesin/ Codeine Phosphate (Robitussin Ac) 10 ml PRN Q6HRS PRN PO COUGH Last administered on 06/24/18 21:37; Start 06/08/18 at 07:30 Meloxicam (Mobic) 7.5 mg DAILY PO Last administered on 06/25/18 08:22; Start 06/08/18 at 09:00 Multivitamins/ Calcium (Thera-M Plus) 1 tab DAILY PO Last administered on 08:23; Start 06/08/18 at 09:00 Polyethylene Glycol (miraLAX) 17 gm PRN DAILY PRN PO CONSTIPATION; Start 06/08 at 01:15 Polyethylene Glycol (miraLAX) 17 gm Q48H PO Last administered on 06/24/18 08: 55; Start 06/08/18 at 09:00 Spironolactone (Aldactone) 25 mg DAILY PO Last administered on 06/25/18 08:21 ; Start 06/08/18 at 09:00 Vitamin B Complex 1 cap DAILY PO Last administered on 06/25/18 08:21; Start 06/08/18 at 09:00 Vitamin D (Vitamin D3) 50,000 unit WEEKLY PO Last administered on 06/25/18 08: 23; Start 06/11/18 at 13:15 Olanzapine (ZyPREXA ZYDIS) 5 mg PRN Q8HRS PRN PO Agitation/Anxiety Last administered on 06/13/18 17:54; Start 06/13/18 at 17:45 Tamsulosin HCl (Flomax) 0.8 mg DAILY PO Last administered on 06/25/18 08:22; Start 06/15/18 at 09:00 Buspirone HCl (Buspar) 5 mg BID@0900,1700 PO Last administered on 06/25/18 08: 22; Start 06/20/18 at 17:00 Active Scripts Active Reported Zyprexa Zydis (Olanzapine) 5 Mg Tab.rapdis 5 Mg PO QHS Vitamin B Complex 1 Each Tablet 1 Each PO DAILY Tamsulosin Hcl 0.4 Mg Cap.er.24h 0.4 Mg PO DAILY Spironolactone 25 Mg Tablet 25 Mg PO DAILY Sinemet 25-100 Mg Tablet (Carbidopa/Levodopa) 1 Each Tablet 1 Each PO QID Senna-Docusate Sodium Tablet (Sennosides/Docusate Sodium) 1 Each Tablet 1 Each PO DAILY Pred Forte (Prednisolone Acetate) 1 Ml Drops.susp 1 Ml OP BID Miralax (Polyethylene Glycol 3350) 17 Gm Powd.pack 17 Gm PO PRN DAILY PRN Oxycodone Hcl 5 Mg Capsule 5 Mg PO PRN Q6HRS PRN Multivitamins (Multivitamin) 1 Each Tablet 1 Each PO DAILY Miralax (Polyethylene Glycol 3350) 17 Gm Powd.pack 17 Gm PO Q48HRS Meloxicam 7.5 Mg Tablet 7.5 Mg PO DAILY Lasix (Furosemide) 40 Mg Tablet 40 Mg PO DAILY Nevanac (Nepafenac) 3 Ml Drops.susp 1 Drop OP DAILY Guaifenesin Ac Cough Syrup (Guaifenesin/Codeine Phosphate) 473 Ml Liquid 2 Tbs PO PRN Q6HRS PRN Gabapentin 100 Mg Capsule 100 Mg PO TID Cymbalta (Duloxetine Hcl) 60 Mg Capsule. 60 Mg PO DAILY Atorvastatin Calcium 20 Mg Tablet 20 Mg PO QHS Aspir-Low (Aspirin) 81 Mg Tablet. 81 Mg PO DAILY Aricept (Donepezil Hcl) 5 Mg Tablet 5 Mg PO QHS Acetaminophen 500 Mg Tablet 500 Mg PO PRN Q6HRS PRN I have reviewed the current psychotropics carefully including drug interactions. Risk benefit ratio favors no change other than as noted in my dictated progress note. Diagnosis: Problems: (1) Change in mental status (2) Anxiety disorder (3) Dementia in Alzheimer's disease with delusions (4) Dementia in Alzheimer's disease with depression (5) Lewy body dementia with behavioral disturbance (6) Impulse control disorder REYNALDO MONTERROSO MD Jun 25, 2018 10:09
[2018-06-25 16:10] VITALS: BP 114/74
[2018-06-25] MEDS: oxyCODONE IR 5 MG TABLET PO PRN (16:56)
[2018-06-25] MEDS: DONEPEZIL HCL 5 MG TABLET. PO SCH (19:28)
[2018-06-25] MEDS: ATORVASTATIN CALCIUM 20 MG TABLET PO SCH (19:28)
--- NOTE | 2018-06-25 21:42 | PN ---
DATE: 06/24/2018 PSYCHIATRIC PROGRESS NOTE This late entry 06/24/2018, covers elements not covered in my initial note. SUBJECTIVE: I met with the patient in the evening. The patient slept 7-1/4 hours previous night. He has been pleasant, cooperative, does have short-term memory deficits, but not aggressive. REVIEW OF SYSTEMS: Ambulation impaired, in wheelchair. No CV, , pulmonary, eye, ENT system symptoms on review. Reliability varies. MENTAL STATUS EXAM: Oriented to himself and situation. Speech coherent, abstraction fair, computation impaired, language function intact. Attention span short. Short term memory is impaired, remote is better. I talked at length about things in [place], some of which were accurate as I met with him. LABORATORY DATA: Reviewed. IMPRESSION: Unchanged from initial note, dementia, Lewy body with delusion, behavioral disturbance; anxiety disorder, unspecified. Rest unchanged. PLAN: No change from initial note. MAN Rhona MONTERROSO MD DR: RAMIREZ/yovani JOB#: [id number] / [id number]
--- NOTE | 2018-06-25 22:44 | PDOC ---
Exam Note: Franki Note: Please also refer to the separate dictated note~for this date of service dictated separately.~Patient seen individually. Discussed the patient with Nursing staff reviewed the chart.~Reviewed interim history and current functioning. Reviewed vital signs,~Labs/ Radiology~and current medications noted below. Continue current treatment with the changes noted in the dictated addendum note Assessment: Vital Signs: Vital Signs Date Time Temp Pulse Resp B/P (MAP) Pulse Ox O2 Delivery O2 Flow Rate FiO2 06/25/18 17:57 18 06/25/18 16:10 98.2 64 114/74 (87) 96 06/23/18 15:52 Room Air I&O Intake and Output 06/25/18 07:00 Intake Total 1080 ml Balance 1080 ml Intake Oral 1080 ml # Bowel Movements 5 Current Medications: Meds: Current Medications Lactated Ringer's 1,000 ml @ 100 mls/hr Q10H IV ; Start 06/07/18 at 19:28; Stop 06/08/18 at 05:27; Status DC Acetaminophen (Tylenol) 650 mg PRN Q6HRS PRN PO PAIN / TEMP Last administered on 06/24/18at 21:37; Start 06/08/18 at 00:30 Multi-Ingredient Ointment (Analgesic [place]) 1 jesse PRN QID PRN TP MUSCLE PAIN; Start 06/08/18 at 00:30 Al Hydroxide/Mg Hydroxide (Mylanta Plus Xs) 15 ml PRN AFTMEALHC PRN PO DYSPEPSIA; Start 06/08/18 at 00:30 Magnesium Hydroxide (Milk Of Magnesia) 2,400 mg PRN QHS PRN PO CONSTIPATION; Start 06/08/18 at 00:30 Olanzapine (ZyPREXA ZYDIS) 5 mg QHS PO Last administered on 06/25/18at 19:28; Start 06/08/18 at 21:00 Donepezil HCl (Aricept) 5 mg QHS PO Last administered on 06/25/18 19:28; Start 06/08/18 at 21:00 Duloxetine HCl (Cymbalta) 60 mg DAILY PO Last administered on 06/25/18at 08:22; Start 06/08/18 at 09:00 Oxycodone HCl (Roxicodone) 5 mg PRN Q6HRS PRN PO MODERATE PAIN Last administered on 06/25/18 16:56; Start 06/08/18 at 01:15 Atorvastatin Calcium (Lipitor) 20 mg QHS PO Last administered on 06/25/18 19: 28; Start 06/08/18 at 21:00 Carbidopa/Levodopa (Sinemet 25/100) 1 tab QID PO Last administered on 19:28; Start 06/08/18 at 09:00 Gabapentin (Neurontin) 100 mg TID PO Last administered on 06/25/18 19:28; Start 06/08/18 at 09:00 Ketorolac Tromethamine (Acular) 1 drop DAILY OS Last administered on 06/25/18 08:21; Start 06/08/18 at 09:00 Prednisolone Acetate (Pred Forte) 1 drop BID OS Last administered on 06/25/18 19:28; Start 06/08/18 at 09:00 Senna/Docusate Sodium (Senna Plus) 1 tab DAILY PO Last administered on 08:23; Start 06/08/18 at 09:00 Tamsulosin HCl (Flomax) 0.4 mg DAILY PO Last administered on 06/14/18 08:51; Start 06/08/18 at 09:00; Stop 06/14/18 at 16:05; Status DC Acetaminophen (Tylenol) 500 mg PRN Q6HRS PRN PO MILD PAIN Last administered on 06/22/18 08:12; Start 06/08/18 at 01:15 Aspirin (Children'S Aspirin) 81 mg DAILYWBKFT PO Last administered on 08:21; Start 06/08/18 at 08:00 Furosemide (Lasix) 40 mg DAILY PO Last administered on 06/25/18 08:22; Start 06/08/18 at 09:00 Guaifenesin/ Codeine Phosphate (Robitussin Ac) 10 ml PRN Q6HRS PRN PO COUGH Last administered on 06/24/18 21:37; Start 06/08/18 at 07:30 Meloxicam (Mobic) 7.5 mg DAILY PO Last administered on 06/25/18 08:22; Start 06/08/18 at 09:00 Multivitamins/ Calcium (Thera-M Plus) 1 tab DAILY PO Last administered on 08:23; Start 06/08/18 at 09:00 Polyethylene Glycol (miraLAX) 17 gm PRN DAILY PRN PO CONSTIPATION; Start 06/08 at 01:15 Polyethylene Glycol (miraLAX) 17 gm Q48H PO Last administered on 06/24/18at 08: 55; Start 06/08/18 at 09:00 Spironolactone (Aldactone) 25 mg DAILY PO Last administered on 06/25/18 08:21 ; Start 06/08/18 at 09:00 Vitamin B Complex 1 cap DAILY PO Last administered on 06/25/18 08:21; Start 06/08/18 at 09:00 Vitamin D (Vitamin D3) 50,000 unit WEEKLY PO Last administered on 06/25/18 08: 23; Start 06/11/18 at 13:15 Olanzapine (ZyPREXA ZYDIS) 5 mg PRN Q8HRS PRN PO Agitation/Anxiety Last administered on 06/13/18at 17:54; Start 06/13/18 at 17:45 Tamsulosin HCl (Flomax) 0.8 mg DAILY PO Last administered on 06/25/18 08:22; Start 06/15/18 at 09:00 Buspirone HCl (Buspar) 5 mg BID@0900,1700 PO Last administered on 06/25/18 16: 56; Start 06/20/18 at 17:00 Active Scripts Active Reported Zyprexa Zydis (Olanzapine) 5 Mg Tab.rapdis 5 Mg PO QHS Vitamin B Complex 1 Each Tablet 1 Each PO DAILY Tamsulosin Hcl 0.4 Mg Cap.er.24h 0.4 Mg PO DAILY Spironolactone 25 Mg Tablet 25 Mg PO DAILY Sinemet 25-100 Mg Tablet (Carbidopa/Levodopa) 1 Each Tablet 1 Each PO QID Senna-Docusate Sodium Tablet (Sennosides/Docusate Sodium) 1 Each Tablet 1 Each PO DAILY Pred Forte (Prednisolone Acetate) 1 Ml Drops.susp 1 Ml OP BID Miralax (Polyethylene Glycol 3350) 17 Gm Powd.pack 17 Gm PO PRN DAILY PRN Oxycodone Hcl 5 Mg Capsule 5 Mg PO PRN Q6HRS PRN Multivitamins (Multivitamin) 1 Each Tablet 1 Each PO DAILY Miralax (Polyethylene Glycol 3350) 17 Gm Powd.pack 17 Gm PO Q48HRS Meloxicam 7.5 Mg Tablet 7.5 Mg PO DAILY Lasix (Furosemide) 40 Mg Tablet 40 Mg PO DAILY Nevanac (Nepafenac) 3 Ml Drops.susp 1 Drop OP DAILY Guaifenesin Ac Cough Syrup (Guaifenesin/Codeine Phosphate) 473 Ml Liquid 2 Tbs PO PRN Q6HRS PRN Gabapentin 100 Mg Capsule 100 Mg PO TID Cymbalta (Duloxetine Hcl) 60 Mg Capsule.dr 60 Mg PO DAILY Atorvastatin Calcium 20 Mg Tablet 20 Mg PO QHS Aspir-Low (Aspirin) 81 Mg Tablet.dr 81 Mg PO DAILY Aricept (Donepezil Hcl) 5 Mg Tablet 5 Mg PO QHS Acetaminophen 500 Mg Tablet 500 Mg PO PRN Q6HRS PRN I have reviewed the current psychotropics carefully including drug interactions. Risk benefit ratio favors no change other than as noted in my dictated progress note. Diagnosis: Problems: (1) Change in mental status (2) Anxiety disorder (3) Dementia in Alzheimer's disease with delusions (4) Dementia in Alzheimer's disease with depression (5) Lewy body dementia with behavioral disturbance (6) Impulse control disorder REYNALDO MONTERROSO MD Jun 25, 2018 22:44
[2018-06-26 06:06] VITALS: BP 139/73
[2018-06-26] MEDS: prednisoLONE ACETATE 1% OPHTH SUSPENSION 5ML BOTTLE. OS SCH ×2 (08:42→19:30)
[2018-06-26] MEDS: ASPIRIN 81 MG TAB.CHEW PO SCH (08:42)
[2018-06-26] MEDS: KETOROLAC TROMETHAMINE 0.5% OPHTH SOLUTION 3ML BOTTLE. OS SCH (08:42)
[2018-06-26] MEDS: SENNOSIDES/DOCUSATE 8.6/50MG TABLET. PO SCH (08:43)
[2018-06-26] MEDS: busPIRone 5 MG TABLET. PO SCH ×2 (08:43→16:30)
[2018-06-26] MEDS: SPIRONOLACTONE 25 MG TABLET PO SCH (08:43)
[2018-06-26] MEDS: DULoxetine HCL 60 MG CAPSULE.DR PO SCH (08:43)
[2018-06-26] MEDS: VITAMIN B COMPLEX CAPSULE. PO SCH (08:43)
[2018-06-26] MEDS: MULTIVITAMIN with MINERAL TABLET. PO SCH (08:44)
[2018-06-26] MEDS: FUROSEMIDE 40 MG TABLET PO SCH (08:44)
[2018-06-26] MEDS: TAMSULOSIN 0.4 MG CAP.ER.24H. PO SCH (08:44)
[2018-06-26] MEDS: GABAPENTIN 100 MG CAPSULE. PO SCH ×3 (08:44→19:31)
[2018-06-26] MEDS: MELOXICAM 7.5 MG TABLET PO SCH (08:44)
[2018-06-26] MEDS: CARBIDOPA/LEVODOPA 25/100MG TABLET PO SCH ×4 (08:44→19:31)
[2018-06-26] MEDS: POLYETHYLENE GLYCOL 3350 17 GM PACKET. PO SCH (08:45)
[2018-06-26 16:26] VITALS: BP 123/77
[2018-06-26] MEDS: DONEPEZIL HCL 5 MG TABLET. PO SCH (19:31)
[2018-06-26] MEDS: ATORVASTATIN CALCIUM 20 MG TABLET PO SCH (19:31)
--- NOTE | 2018-06-26 21:05 | PN ---
DATE: 06/25/2018 PSYCHIATRIC PROGRESS NOTE This late entry 06/25/2018 covers elements not covered in my initial note. SUBJECTIVE: I met with the patient in the evening. The patient slept 5-3/4 hours previous night. He had a good night, good day, remains somewhat confused with short-term memory deficits, but remote memory is better. REVIEW OF SYSTEMS: Ambulation impaired, in wheelchair. No CV, , pulmonary, eye, ENT system symptoms on review. MENTAL STATUS EXAM: Oriented to himself and situation. Speech is coherent, has some latency. Abstraction fair, computation impaired, language function intact. Mood and affect is improved. He is quite animated, talking about [place] as I met with him individually. LABORATORY DATA: Reviewed. IMPRESSION: Major neurocognitive disorder, Alzheimer, vascular with depression; anxiety disorder, unspecified. Rest unchanged. PLAN: No change from initial note. MAN Rhona MONTERROSO MD DR: RAMIREZ/yovani JOB#: [id number] / [id number]
--- NOTE | 2018-06-26 22:42 | PDOC ---
Exam Note: Franki Note: Please also refer to the separate dictated note~for this date of service dictated separately.~Patient seen individually. Discussed the patient with Nursing staff reviewed the chart.~Reviewed interim history and current functioning. Reviewed vital signs,~Labs/ Radiology~and current medications noted below. Continue current treatment with the changes noted in the dictated addendum note Assessment: Vital Signs: Vital Signs Date Time Temp Pulse Resp B/P (MAP) Pulse Ox O2 Delivery O2 Flow Rate FiO2 06/26/18 16:26 98.5 71 19 123/77 (92) 94 Room Air I&O Intake and Output 06/26/18 07:00 Intake Total 1200 ml Balance 1200 ml Intake Oral 1200 ml # Bowel Movements 2 Current Medications: Meds: Current Medications Lactated Ringer's 1,000 ml @ 100 mls/hr Q10H IV ; Start 06/07/18 at 19:28; Stop 06/08/18 at 05:27; Status DC Acetaminophen (Tylenol) 650 mg PRN Q6HRS PRN PO PAIN / TEMP Last administered on 06/24/18at 21:37; Start 06/08/18 at 00:30 Multi-Ingredient Ointment (Analgesic [place]) 1 jesse PRN QID PRN TP MUSCLE PAIN; Start 06/08/18 at 00:30 Al Hydroxide/Mg Hydroxide (Mylanta Plus Xs) 15 ml PRN AFTMEALHC PRN PO DYSPEPSIA; Start 06/08/18 at 00:30 Magnesium Hydroxide (Milk Of Magnesia) 2,400 mg PRN QHS PRN PO CONSTIPATION; Start 06/08/18 at 00:30 Olanzapine (ZyPREXA ZYDIS) 5 mg QHS PO Last administered on 06/26/18 19:31; Start 06/08/18 at 21:00 Donepezil HCl (Aricept) 5 mg QHS PO Last administered on 06/26/18 19:31; Start 06/08/18 at 21:00 Duloxetine HCl (Cymbalta) 60 mg DAILY PO Last administered on 06/26/18at 08:43; Start 06/08/18 at 09:00 Oxycodone HCl (Roxicodone) 5 mg PRN Q6HRS PRN PO MODERATE PAIN Last administered on 06/25/18at 16:56; Start 06/08/18 at 01:15 Atorvastatin Calcium (Lipitor) 20 mg QHS PO Last administered on 06/26/18 19: 31; Start 06/08/18 at 21:00 Carbidopa/Levodopa (Sinemet 25/100) 1 tab QID PO Last administered on 19:31; Start 06/08/18 at 09:00 Gabapentin (Neurontin) 100 mg TID PO Last administered on 06/26/18 19:31; Start 06/08/18 at 09:00 Ketorolac Tromethamine (Acular) 1 drop DAILY OS Last administered on 06/26/18 08:42; Start 06/08/18 at 09:00 Prednisolone Acetate (Pred Forte) 1 drop BID OS Last administered on 06/26/18 19:30; Start 06/08/18 at 09:00 Senna/Docusate Sodium (Senna Plus) 1 tab DAILY PO Last administered on 08:43; Start 06/08/18 at 09:00 Tamsulosin HCl (Flomax) 0.4 mg DAILY PO Last administered on 06/14/18 08:51; Start 06/08/18 at 09:00; Stop 06/14/18 at 16:05; Status DC Acetaminophen (Tylenol) 500 mg PRN Q6HRS PRN PO MILD PAIN Last administered on 06/22/18 08:12; Start 06/08/18 at 01:15 Aspirin (Children'S Aspirin) 81 mg DAILYWBKFT PO Last administered on 08:42; Start 06/08/18 at 08:00 Furosemide (Lasix) 40 mg DAILY PO Last administered on 06/26/18 08:44; Start 06/08/18 at 09:00 Guaifenesin/ Codeine Phosphate (Robitussin Ac) 10 ml PRN Q6HRS PRN PO COUGH Last administered on 06/24/18 21:37; Start 06/08/18 at 07:30 Meloxicam (Mobic) 7.5 mg DAILY PO Last administered on 06/26/18 08:44; Start 06/08/18 at 09:00 Multivitamins/ Calcium (Thera-M Plus) 1 tab DAILY PO Last administered on 08:44; Start 06/08/18 at 09:00 Polyethylene Glycol (miraLAX) 17 gm PRN DAILY PRN PO CONSTIPATION; Start 06/08 at 01:15 Polyethylene Glycol (miraLAX) 17 gm Q48H PO Last administered on 06/26/18at 08: 45; Start 06/08/18 at 09:00 Spironolactone (Aldactone) 25 mg DAILY PO Last administered on 06/26/18 08:43 ; Start 06/08/18 at 09:00 Vitamin B Complex 1 cap DAILY PO Last administered on 06/26/18 08:43; Start 06/08/18 at 09:00 Vitamin D (Vitamin D3) 50,000 unit WEEKLY PO Last administered on 06/25/18 08: 23; Start 06/11/18 at 13:15 Olanzapine (ZyPREXA ZYDIS) 5 mg PRN Q8HRS PRN PO Agitation/Anxiety Last administered on 06/13/18at 17:54; Start 06/13/18 at 17:45 Tamsulosin HCl (Flomax) 0.8 mg DAILY PO Last administered on 06/26/18at 08:44; Start 06/15/18 at 09:00 Buspirone HCl (Buspar) 5 mg BID@0900,1700 PO Last administered on 06/26/18 16: 30; Start 06/20/18 at 17:00 Active Scripts Active Reported Zyprexa Zydis (Olanzapine) 5 Mg Tab.rapdis 5 Mg PO QHS Vitamin B Complex 1 Each Tablet 1 Each PO DAILY Tamsulosin Hcl 0.4 Mg Cap.er.24h 0.4 Mg PO DAILY Spironolactone 25 Mg Tablet 25 Mg PO DAILY Sinemet 25-100 Mg Tablet (Carbidopa/Levodopa) 1 Each Tablet 1 Each PO QID Senna-Docusate Sodium Tablet (Sennosides/Docusate Sodium) 1 Each Tablet 1 Each PO DAILY Pred Forte (Prednisolone Acetate) 1 Ml Drops.susp 1 Ml OP BID Miralax (Polyethylene Glycol 3350) 17 Gm Powd.pack 17 Gm PO PRN DAILY PRN Oxycodone Hcl 5 Mg Capsule 5 Mg PO PRN Q6HRS PRN Multivitamins (Multivitamin) 1 Each Tablet 1 Each PO DAILY Miralax (Polyethylene Glycol 3350) 17 Gm Powd.pack 17 Gm PO Q48HRS Meloxicam 7.5 Mg Tablet 7.5 Mg PO DAILY Lasix (Furosemide) 40 Mg Tablet 40 Mg PO DAILY Nevanac (Nepafenac) 3 Ml Drops.susp 1 Drop OP DAILY Guaifenesin Ac Cough Syrup (Guaifenesin/Codeine Phosphate) 473 Ml Liquid 2 Tbs PO PRN Q6HRS PRN Gabapentin 100 Mg Capsule 100 Mg PO TID Cymbalta (Duloxetine Hcl) 60 Mg Capsule. 60 Mg PO DAILY Atorvastatin Calcium 20 Mg Tablet 20 Mg PO QHS Aspir-Low (Aspirin) 81 Mg Tablet.dr 81 Mg PO DAILY Aricept (Donepezil Hcl) 5 Mg Tablet 5 Mg PO QHS Acetaminophen 500 Mg Tablet 500 Mg PO PRN Q6HRS PRN I have reviewed the current psychotropics carefully including drug interactions. Risk benefit ratio favors no change other than as noted in my dictated progress note. Diagnosis: Problems: (1) Change in mental status (2) Anxiety disorder (3) Dementia in Alzheimer's disease with delusions (4) Dementia in Alzheimer's disease with depression (5) Lewy body dementia with behavioral disturbance (6) Impulse control disorder REYNALDO MONTERROSO MD Jun 26, 2018 22:42
[2018-06-27 06:19] VITALS: BP 144/68
[2018-06-27] MEDS: MULTIVITAMIN with MINERAL TABLET. PO SCH (07:38)
[2018-06-27] MEDS: SENNOSIDES/DOCUSATE 8.6/50MG TABLET. PO SCH (07:38)
[2018-06-27] MEDS: VITAMIN B COMPLEX CAPSULE. PO SCH (07:38)
[2018-06-27] MEDS: FUROSEMIDE 40 MG TABLET PO SCH (07:38)
[2018-06-27] MEDS: SPIRONOLACTONE 25 MG TABLET PO SCH (07:38)
[2018-06-27] MEDS: GABAPENTIN 100 MG CAPSULE. PO SCH ×3 (07:38→19:44)
[2018-06-27] MEDS: CARBIDOPA/LEVODOPA 25/100MG TABLET PO SCH ×4 (07:38→19:44)
[2018-06-27] MEDS: TAMSULOSIN 0.4 MG CAP.ER.24H. PO SCH (07:38)
[2018-06-27] MEDS: busPIRone 5 MG TABLET. PO SCH ×2 (07:39→16:32)
[2018-06-27] MEDS: ASPIRIN 81 MG TAB.CHEW PO SCH (07:40)
[2018-06-27] MEDS: DULoxetine HCL 60 MG CAPSULE.DR PO SCH (07:40)
[2018-06-27] MEDS: MELOXICAM 7.5 MG TABLET PO SCH (07:40)
[2018-06-27] MEDS: KETOROLAC TROMETHAMINE 0.5% OPHTH SOLUTION 3ML BOTTLE. OS SCH (07:41)
[2018-06-27] MEDS: prednisoLONE ACETATE 1% OPHTH SUSPENSION 5ML BOTTLE. OS SCH ×2 (07:41→19:43)
[2018-06-27 16:18] VITALS: BP 134/76
[2018-06-27] MEDS: DONEPEZIL HCL 5 MG TABLET. PO SCH (19:43)
[2018-06-27] MEDS: ATORVASTATIN CALCIUM 20 MG TABLET PO SCH (19:44)
--- NOTE | 2018-06-27 21:20 | PN ---
DATE: 06/26/2018 PSYCHIATRIC PROGRESS NOTE This late entry 06/26/2018 covers elements not covered in my initial note. SUBJECTIVE: I met with the patient in the evening. The patient is doing better, quite animated, verbal with nursing staff and in groups and also with me individually as I met with him. He slept 7-1/4 hours. REVIEW OF SYSTEMS: Ambulation impaired, in wheelchair. No CV, , pulmonary, eye, ENT system symptoms on review. MENTAL STATUS EXAM: Oriented to himself and situation. Speech coherent, abstraction fair, computation impaired, language function intact, attention span short. Mood and affect overall improved. No suicidal or homicidal ideation. LABORATORY DATA: Reviewed. IMPRESSION: Major neurocognitive disorder, Alzheimer, vascular with delusion, depression, behavioral disturbance. Rest unchanged. PLAN: No change from initial note. MAN Rhona MONTERROSO MD DR: RAMIREZ/yovain JOB#: [id number] / [id number]
--- NOTE | 2018-06-27 22:43 | PDOC ---
Exam Note: Franki Note: Please also refer to the separate dictated note~for this date of service dictated separately.~Patient seen individually. Discussed the patient with Nursing staff reviewed the chart.~Reviewed interim history and current functioning. Reviewed vital signs,~Labs/ Radiology~and current medications noted below. Continue current treatment with the changes noted in the dictated addendum note Assessment: Vital Signs: Vital Signs Date Time Temp Pulse Resp B/P (MAP) Pulse Ox O2 Delivery O2 Flow Rate FiO2 06/27/18 16:18 98.1 69 20 134/76 (95) 96 06/26/18 16:26 Room Air I&O Intake and Output 06/27/18 07:00 Intake Total 2160 ml Balance 2160 ml Intake Oral 2160 ml # Bowel Movements 2 Current Medications: Meds: Current Medications Lactated Ringer's 1,000 ml @ 100 mls/hr Q10H IV ; Start 06/07/18 at 19:28; Stop 06/08/18 at 05:27; Status DC Acetaminophen (Tylenol) 650 mg PRN Q6HRS PRN PO PAIN / TEMP Last administered on 06/24/18at 21:37; Start 06/08/18 at 00:30 Multi-Ingredient Ointment (Analgesic [place]) 1 jesse PRN QID PRN TP MUSCLE PAIN; Start 06/08/18 at 00:30 Al Hydroxide/Mg Hydroxide (Mylanta Plus Xs) 15 ml PRN AFTMEALHC PRN PO DYSPEPSIA; Start 06/08/18 at 00:30 Magnesium Hydroxide (Milk Of Magnesia) 2,400 mg PRN QHS PRN PO CONSTIPATION; Start 06/08/18 at 00:30 Olanzapine (ZyPREXA ZYDIS) 5 mg QHS PO Last administered on 06/27/18at 19:44; Start 06/08/18 at 21:00 Donepezil HCl (Aricept) 5 mg QHS PO Last administered on 06/27/18 19:43; Start 06/08/18 at 21:00 Duloxetine HCl (Cymbalta) 60 mg DAILY PO Last administered on 06/27/18at 07:40; Start 06/08/18 at 09:00 Oxycodone HCl (Roxicodone) 5 mg PRN Q6HRS PRN PO MODERATE PAIN Last administered on 06/25/18at 16:56; Start 06/08/18 at 01:15 Atorvastatin Calcium (Lipitor) 20 mg QHS PO Last administered on 06/27/18 19: 44; Start 06/08/18 at 21:00 Carbidopa/Levodopa (Sinemet 25/100) 1 tab QID PO Last administered on 19:44; Start 06/08/18 at 09:00 Gabapentin (Neurontin) 100 mg TID PO Last administered on 06/27/18 19:44; Start 06/08/18 at 09:00 Ketorolac Tromethamine (Acular) 1 drop DAILY OS Last administered on 06/27/18 07:41; Start 06/08/18 at 09:00 Prednisolone Acetate (Pred Forte) 1 drop BID OS Last administered on 06/27/18 19:43; Start 06/08/18 at 09:00 Senna/Docusate Sodium (Senna Plus) 1 tab DAILY PO Last administered on 07:38; Start 06/08/18 at 09:00 Tamsulosin HCl (Flomax) 0.4 mg DAILY PO Last administered on 06/14/18 08:51; Start 06/08/18 at 09:00; Stop 06/14/18 at 16:05; Status DC Acetaminophen (Tylenol) 500 mg PRN Q6HRS PRN PO MILD PAIN Last administered on 06/22/18 08:12; Start 06/08/18 at 01:15 Aspirin (Children'S Aspirin) 81 mg DAILYWBKFT PO Last administered on 07:40; Start 06/08/18 at 08:00 Furosemide (Lasix) 40 mg DAILY PO Last administered on 06/27/18 07:38; Start 06/08/18 at 09:00 Guaifenesin/ Codeine Phosphate (Robitussin Ac) 10 ml PRN Q6HRS PRN PO COUGH Last administered on 06/24/18 21:37; Start 06/08/18 at 07:30 Meloxicam (Mobic) 7.5 mg DAILY PO Last administered on 06/27/18 07:40; Start 06/08/18 at 09:00 Multivitamins/ Calcium (Thera-M Plus) 1 tab DAILY PO Last administered on 07:38; Start 06/08/18 at 09:00 Polyethylene Glycol (miraLAX) 17 gm PRN DAILY PRN PO CONSTIPATION; Start 06/08 at 01:15 Polyethylene Glycol (miraLAX) 17 gm Q48H PO Last administered on 06/26/18 08: 45; Start 06/08/18 at 09:00 Spironolactone (Aldactone) 25 mg DAILY PO Last administered on 06/27/18 07:38 ; Start 06/08/18 at 09:00 Vitamin B Complex 1 cap DAILY PO Last administered on 06/27/18 07:38; Start 06/08/18 at 09:00 Vitamin D (Vitamin D3) 50,000 unit WEEKLY PO Last administered on 06/25/18 08: 23; Start 06/11/18 at 13:15 Olanzapine (ZyPREXA ZYDIS) 5 mg PRN Q8HRS PRN PO Agitation/Anxiety Last administered on 06/13/18 17:54; Start 06/13/18 at 17:45 Tamsulosin HCl (Flomax) 0.8 mg DAILY PO Last administered on 06/27/18 07:38; Start 06/15/18 at 09:00 Buspirone HCl (Buspar) 5 mg BID@0900,1700 PO Last administered on 06/27/18 16: 32; Start 06/20/18 at 17:00 Active Scripts Active Reported Zyprexa Zydis (Olanzapine) 5 Mg Tab.rapdis 5 Mg PO QHS Vitamin B Complex 1 Each Tablet 1 Each PO DAILY Tamsulosin Hcl 0.4 Mg Cap.er.24h 0.4 Mg PO DAILY Spironolactone 25 Mg Tablet 25 Mg PO DAILY Sinemet 25-100 Mg Tablet (Carbidopa/Levodopa) 1 Each Tablet 1 Each PO QID Senna-Docusate Sodium Tablet (Sennosides/Docusate Sodium) 1 Each Tablet 1 Each PO DAILY Pred Forte (Prednisolone Acetate) 1 Ml Drops.susp 1 Ml OP BID Miralax (Polyethylene Glycol 3350) 17 Gm Powd.pack 17 Gm PO PRN DAILY PRN Oxycodone Hcl 5 Mg Capsule 5 Mg PO PRN Q6HRS PRN Multivitamins (Multivitamin) 1 Each Tablet 1 Each PO DAILY Miralax (Polyethylene Glycol 3350) 17 Gm Powd.pack 17 Gm PO Q48HRS Meloxicam 7.5 Mg Tablet 7.5 Mg PO DAILY Lasix (Furosemide) 40 Mg Tablet 40 Mg PO DAILY Nevanac (Nepafenac) 3 Ml Drops.susp 1 Drop OP DAILY Guaifenesin Ac Cough Syrup (Guaifenesin/Codeine Phosphate) 473 Ml Liquid 2 Tbs PO PRN Q6HRS PRN Gabapentin 100 Mg Capsule 100 Mg PO TID Cymbalta (Duloxetine Hcl) 60 Mg Capsule. 60 Mg PO DAILY Atorvastatin Calcium 20 Mg Tablet 20 Mg PO QHS Aspir-Low (Aspirin) 81 Mg Tablet.dr 81 Mg PO DAILY Aricept (Donepezil Hcl) 5 Mg Tablet 5 Mg PO QHS Acetaminophen 500 Mg Tablet 500 Mg PO PRN Q6HRS PRN I have reviewed the current psychotropics carefully including drug interactions. Risk benefit ratio favors no change other than as noted in my dictated progress note. Diagnosis: Problems: (1) Change in mental status (2) Anxiety disorder (3) Dementia in Alzheimer's disease with delusions (4) Dementia in Alzheimer's disease with depression (5) Lewy body dementia with behavioral disturbance (6) Impulse control disorder REYNALDO MONTERROSO MD Jun 27, 2018 22:43
[2018-06-28 06:17] VITALS: BP 152/82
[2018-06-28] MEDS: MULTIVITAMIN with MINERAL TABLET. PO SCH (08:19)
[2018-06-28] MEDS: DULoxetine HCL 60 MG CAPSULE.DR PO SCH (08:19)
[2018-06-28] MEDS: SPIRONOLACTONE 25 MG TABLET PO SCH (08:19)
[2018-06-28] MEDS: VITAMIN B COMPLEX CAPSULE. PO SCH (08:19)
[2018-06-28] MEDS: MELOXICAM 7.5 MG TABLET PO SCH (08:20)
[2018-06-28] MEDS: TAMSULOSIN 0.4 MG CAP.ER.24H. PO SCH (08:20)
[2018-06-28] MEDS: GABAPENTIN 100 MG CAPSULE. PO SCH ×3 (08:20→20:30)
[2018-06-28] MEDS: FUROSEMIDE 40 MG TABLET PO SCH (08:20)
[2018-06-28] MEDS: ASPIRIN 81 MG TAB.CHEW PO SCH (08:20)
[2018-06-28] MEDS: busPIRone 5 MG TABLET. PO SCH (08:20)
[2018-06-28] MEDS: SENNOSIDES/DOCUSATE 8.6/50MG TABLET. PO SCH (08:21)
[2018-06-28] MEDS: CARBIDOPA/LEVODOPA 25/100MG TABLET PO SCH ×4 (08:21→20:30)
[2018-06-28] MEDS: POLYETHYLENE GLYCOL 3350 17 GM PACKET. PO SCH (08:22)
[2018-06-28] MEDS: KETOROLAC TROMETHAMINE 0.5% OPHTH SOLUTION 3ML BOTTLE. OS SCH (08:23)
[2018-06-28] MEDS: prednisoLONE ACETATE 1% OPHTH SUSPENSION 5ML BOTTLE. OS SCH ×2 (08:23→20:31)
[2018-06-28 16:06] VITALS: BP 111/65
[2018-06-28] MEDS: busPIRone 10 MG TABLET. PO SCH (17:23)
[2018-06-28] MEDS: ATORVASTATIN CALCIUM 20 MG TABLET PO SCH (20:30)
[2018-06-28] MEDS: DONEPEZIL HCL 5 MG TABLET. PO SCH (20:30)
[2018-06-28] MEDS: guaiFENesin/CODEINE 100mg/10mg 5 ML LIQUID PO PRN (20:42)
[2018-06-28] MEDS: oxyCODONE IR 5 MG TABLET PO PRN (20:42)
[2018-06-28 22:28] LABS: BILIRUBIN,URINE NEG (NEG); CLARITY,URINE CLOUDY; COLOR,URINE YELLOW; GLUCOSE,URINE NEG (NEG); NITRITE,URINE POS (NEG); UROBILINOGEN,URINE 1 mg/dL (0.2 mg/dL)
[2018-06-28 22:29] LABS: BACTERIA,URINE MANY /HPF (0-FEW)
--- NOTE | 2018-06-28 22:46 | PDOC ---
Exam Note: Franki Note: Please also refer to the separate dictated note~for this date of service dictated separately.~Patient seen individually. Discussed the patient with Nursing staff reviewed the chart.~Reviewed interim history and current functioning. Reviewed vital signs,~Labs/ Radiology~and current medications noted below. Continue current treatment with the changes noted in the dictated addendum note Assessment: Vital Signs: Vital Signs Date Time Temp Pulse Resp B/P (MAP) Pulse Ox O2 Delivery O2 Flow Rate FiO2 06/28/18 21:42 96 06/28/18 16:06 98.1 69 20 111/65 (80) Room Air I&O Intake and Output 06/28/18 07:00 Intake Total 1680 ml Balance 1680 ml Intake Oral 1680 ml # Voids 1 # Bowel Movements 2 Labs: Laboratory Tests Test 06/28/18 20:13 Urine Collection Type Unknown Urine Color Yellow Urine Clarity Cloudy Urine pH >8.5 Urine Specific [place] 1.015 Urine Protein Trace (NEG-TRACE) Urine Glucose (UA) Neg mg/dL (NEG) Urine Ketones (Stick) Neg mg/dL (NEG) Urine Blood Trace (NEG) Urine Nitrite Pos (NEG) Urine Bilirubin Neg (NEG) Urine Urobilinogen Dipstick 1 mg/dL (0.2 mg/dL) Urine Leukocyte Esterase Large (NEG) Urine RBC 3-5 /HPF (0-2) Urine WBC 1-4 /HPF (0-4) Urine Squamous Epithelial Cells None /LPF Urine Bacteria Many /HPF (0-FEW) Current Medications: Meds: Current Medications Lactated Ringer's 1,000 ml @ 100 mls/hr Q10H IV ; Start 06/07/18 at 19:28; Stop 06/08/18 at 05:27; Status DC Acetaminophen (Tylenol) 650 mg PRN Q6HRS PRN PO PAIN / TEMP Last administered on 06/24/18at 21:37; Start 06/08/18 at 00:30 Multi-Ingredient Ointment (Analgesic [place]) 1 jesse PRN QID PRN TP MUSCLE PAIN; Start 06/08/18 at 00:30 Al Hydroxide/Mg Hydroxide (Mylanta Plus Xs) 15 ml PRN AFTMEALHC PRN PO DYSPEPSIA; Start 06/08/18 at 00:30 Magnesium Hydroxide (Milk Of Magnesia) 2,400 mg PRN QHS PRN PO CONSTIPATION; Start 06/08/18 at 00:30 Olanzapine (ZyPREXA ZYDIS) 5 mg QHS PO Last administered on 06/28/18 20:30; Start 06/08/18 at 21:00 Donepezil HCl (Aricept) 5 mg QHS PO Last administered on 06/28/18 20:30; Start 06/08/18 at 21:00 Duloxetine HCl (Cymbalta) 60 mg DAILY PO Last administered on 06/28/18 08:19; Start 06/08/18 at 09:00 Oxycodone HCl (Roxicodone) 5 mg PRN Q6HRS PRN PO MODERATE PAIN Last administered on 06/28/18 20:42; Start 06/08/18 at 01:15 Atorvastatin Calcium (Lipitor) 20 mg QHS PO Last administered on 06/28/18 20: 30; Start 06/08/18 at 21:00 Carbidopa/Levodopa (Sinemet 25/100) 1 tab QID PO Last administered on 20:30; Start 06/08/18 at 09:00 Gabapentin (Neurontin) 100 mg TID PO Last administered on 06/28/18 20:30; Start 06/08/18 at 09:00 Ketorolac Tromethamine (Acular) 1 drop DAILY OS Last administered on 06/28/18 08:23; Start 06/08/18 at 09:00 Prednisolone Acetate (Pred Forte) 1 drop BID OS Last administered on 06/28/18 20:31; Start 06/08/18 at 09:00 Senna/Docusate Sodium (Senna Plus) 1 tab DAILY PO Last administered on 08:21; Start 06/08/18 at 09:00 Tamsulosin HCl (Flomax) 0.4 mg DAILY PO Last administered on 06/14/18at 08:51; Start 06/08/18 at 09:00; Stop 06/14/18 at 16:05; Status DC Acetaminophen (Tylenol) 500 mg PRN Q6HRS PRN PO MILD PAIN Last administered on 06/22/18at 08:12; Start 06/08/18 at 01:15 Aspirin (Children'S Aspirin) 81 mg DAILYWBKFT PO Last administered on 08:20; Start 06/08/18 at 08:00 Furosemide (Lasix) 40 mg DAILY PO Last administered on 06/28/18 08:20; Start 06/08/18 at 09:00 Guaifenesin/ Codeine Phosphate (Robitussin Ac) 10 ml PRN Q6HRS PRN PO COUGH Last administered on 06/28/18 20:42; Start 06/08/18 at 07:30 Meloxicam (Mobic) 7.5 mg DAILY PO Last administered on 06/28/18 08:20; Start 06/08/18 at 09:00 Multivitamins/ Calcium (Thera-M Plus) 1 tab DAILY PO Last administered on 08:19; Start 06/08/18 at 09:00 Polyethylene Glycol (miraLAX) 17 gm PRN DAILY PRN PO CONSTIPATION; Start 06/08 at 01:15 Polyethylene Glycol (miraLAX) 17 gm Q48H PO Last administered on 06/28/18 08: 22; Start 06/08/18 at 09:00; Stop 06/28/18 at 14:19; Status DC Spironolactone (Aldactone) 25 mg DAILY PO Last administered on 06/28/18 08:19 ; Start 06/08/18 at 09:00 Vitamin B Complex 1 cap DAILY PO Last administered on 06/28/18 08:19; Start 06/08/18 at 09:00 Vitamin D (Vitamin D3) 50,000 unit WEEKLY PO Last administered on 06/25/18 08: 23; Start 06/11/18 at 13:15 Olanzapine (ZyPREXA ZYDIS) 5 mg PRN Q8HRS PRN PO Agitation/Anxiety Last administered on 06/13/18 17:54; Start 06/13/18 at 17:45 Tamsulosin HCl (Flomax) 0.8 mg DAILY PO Last administered on 06/28/18 08:20; Start 06/15/18 at 09:00 Buspirone HCl (Buspar) 5 mg BID@0900,1700 PO Last administered on 06/28/18 08: 20; Start 06/20/18 at 17:00; Stop 06/28/18 at 11:57; Status DC Buspirone HCl (Buspar) 10 mg BID@0900,1700 PO Last administered on 06/28/18at 17 :23; Start 06/28/18 at 17:00 Divalproex Sodium (Depakote Sprinkles) 125 mg TID@0900,1300,1700 PO ; Start 06/29/18 at 09:00 Active Scripts Active Reported Zyprexa Zydis (Olanzapine) 5 Mg Tab.rapdis 5 Mg PO QHS Vitamin B Complex 1 Each Tablet 1 Each PO DAILY Tamsulosin Hcl 0.4 Mg Cap.er.24h 0.4 Mg PO DAILY Spironolactone 25 Mg Tablet 25 Mg PO DAILY Sinemet 25-100 Mg Tablet (Carbidopa/Levodopa) 1 Each Tablet 1 Each PO QID Senna-Docusate Sodium Tablet (Sennosides/Docusate Sodium) 1 Each Tablet 1 Each PO DAILY Pred Forte (Prednisolone Acetate) 1 Ml Drops.susp 1 Ml OP BID Miralax (Polyethylene Glycol 3350) 17 Gm Powd.pack 17 Gm PO PRN DAILY PRN Oxycodone Hcl 5 Mg Capsule 5 Mg PO PRN Q6HRS PRN Multivitamins (Multivitamin) 1 Each Tablet 1 Each PO DAILY Miralax (Polyethylene Glycol 3350) 17 Gm Powd.pack 17 Gm PO Q48HRS Meloxicam 7.5 Mg Tablet 7.5 Mg PO DAILY Lasix (Furosemide) 40 Mg Tablet 40 Mg PO DAILY Nevanac (Nepafenac) 3 Ml Drops.susp 1 Drop OP DAILY Guaifenesin Ac Cough Syrup (Guaifenesin/Codeine Phosphate) 473 Ml Liquid 2 Tbs PO PRN Q6HRS PRN Gabapentin 100 Mg Capsule 100 Mg PO TID Cymbalta (Duloxetine Hcl) 60 Mg Capsule. 60 Mg PO DAILY Atorvastatin Calcium 20 Mg Tablet 20 Mg PO QHS Aspir-Low (Aspirin) 81 Mg Tablet. 81 Mg PO DAILY Aricept (Donepezil Hcl) 5 Mg Tablet 5 Mg PO QHS Acetaminophen 500 Mg Tablet 500 Mg PO PRN Q6HRS PRN I have reviewed the current psychotropics carefully including drug interactions. Risk benefit ratio favors no change other than as noted in my dictated progress note. Diagnosis: Problems: (1) Change in mental status (2) Anxiety disorder (3) Dementia in Alzheimer's disease with delusions (4) Dementia in Alzheimer's disease with depression (5) Lewy body dementia with behavioral disturbance (6) Impulse control disorder REYNALDO MONTERROSO MD Jun 28, 2018 22:46
[2018-06-29 06:04] VITALS: BP 125/68
[2018-06-29] MEDS: ASPIRIN 81 MG TAB.CHEW PO SCH (07:53)
[2018-06-29] MEDS: MELOXICAM 7.5 MG TABLET PO SCH (07:53)
[2018-06-29] MEDS: GABAPENTIN 100 MG CAPSULE. PO SCH ×3 (07:54→19:42)
[2018-06-29] MEDS: CARBIDOPA/LEVODOPA 25/100MG TABLET PO SCH ×4 (07:54→19:42)
[2018-06-29] MEDS: busPIRone 10 MG TABLET. PO SCH ×2 (07:54→17:59)
[2018-06-29] MEDS: TAMSULOSIN 0.4 MG CAP.ER.24H. PO SCH (07:55)
[2018-06-29] MEDS: FUROSEMIDE 40 MG TABLET PO SCH (07:55)
[2018-06-29] MEDS: MULTIVITAMIN with MINERAL TABLET. PO SCH (07:55)
[2018-06-29] MEDS: SPIRONOLACTONE 25 MG TABLET PO SCH (07:55)
[2018-06-29] MEDS: SENNOSIDES/DOCUSATE 8.6/50MG TABLET. PO SCH (07:56)
[2018-06-29] MEDS: VITAMIN B COMPLEX CAPSULE. PO SCH (07:56)
[2018-06-29] MEDS: DULoxetine HCL 60 MG CAPSULE.DR PO SCH (07:56)
[2018-06-29] MEDS: prednisoLONE ACETATE 1% OPHTH SUSPENSION 5ML BOTTLE. OS SCH ×2 (07:58→19:44)
[2018-06-29] MEDS: DIVALPROEX 125 MG CAP.SPRINK PO SCH ×3 (07:58→17:59)
[2018-06-29] MEDS: KETOROLAC TROMETHAMINE 0.5% OPHTH SOLUTION 3ML BOTTLE. OS SCH (07:58)
[2018-06-29 16:48] VITALS: BP 118/88
[2018-06-29] MEDS: ATORVASTATIN CALCIUM 20 MG TABLET PO SCH (19:42)
[2018-06-29] MEDS: DONEPEZIL HCL 5 MG TABLET. PO SCH (19:43)
[2018-06-29] MEDS: OXYBUTYNIN CHLORIDE 5 MG TABLET PO SCH (19:44)
--- NOTE | 2018-06-29 20:25 | PN ---
DATE: 06/27/2018 PSYCHIATRIC PROGRESS NOTE This late entry 06/27/2018 covers elements not covered in my initial note. SUBJECTIVE: I met with the patient in the evening. The patient slept 7-3/4 hours previous evening. He has remained somewhat anxious, labile at times, inappropriate, and his discharge had to be postponed as a consequence of his behaviors marked mood lability. REVIEW OF SYSTEMS: Ambulation impaired, in wheelchair. No CV, , pulmonary, eye, ENT system symptoms on review. Reliability poor. MENTAL STATUS EXAM: Oriented to himself and situation. Speech coherent, at times rapid, abstraction fair, computation impaired, language function intact, attention span short. Mood and affect remain somewhat labile. LABORATORY DATA: Reviewed. IMPRESSION: Unchanged from initial note. PLAN: No change from initial note. If behaviors persist, may increase BuSpar and add Depakote, we will make a decision in the next 24 hours. REYNALDO MONTERROSO MD DR: RAMIREZ/yovani JOB#: [id number] / [id number]
[2018-06-29] MEDS: guaiFENesin/CODEINE 100mg/10mg 5 ML LIQUID PO PRN (20:53)
[2018-06-29] MEDS: oxyCODONE IR 5 MG TABLET PO PRN (20:53)
--- NOTE | 2018-06-29 21:48 | PN ---
DATE: 06/28/2018 PSYCHIATRIC PROGRESS NOTE This late entry 06/28/2018 covers elements not covered in my initial note. SUBJECTIVE: I met with the patient in the evening and staffed at a treatment team meeting with the entire team in the morning. The patient has been extremely disruptive, loud, irritable, labile, and discharge was postponed. He has been urinating inappropriately. We will check a UA to make sure he does not have a UTI. He has been sexually inappropriate, telling nursing staff "wash my elmira and balls" per nursing report. Urinated in the dining room on himself on 3 occasions. REVIEW OF SYSTEMS: Ambulation impaired, in wheelchair. No CV, , pulmonary, eye, ENT system symptoms on review. MENTAL STATUS EXAM: Oriented to himself and situation. Speech is coherent, can be pressured at times. Abstraction fair, computation impaired, language function intact. Mood and affect remain somewhat labile. LABORATORY DATA: Reviewed. IMPRESSION: Major neurocognitive disorder, Alzheimer, vascular with delusion, depression, behavioral disturbance; anxiety disorder, unspecified; impulse control disorder, unspecified. Rest unchanged. PLAN: Check UA, make sure UTI is not causing the above problems. Increase BuSpar from 5 b.i.d. to 10 b.i.d. Start Depakote Sprinkles 125 mg 3 times a day. Check CBC, CMP, valproic acid level in 3 days. Discontinue the MiraLax since he has had some diarrhea. Rest unchanged from initial note. REYNALDO MONTERROSO MD DR: RAMIREZ/yovani JOB#: [id number] / [id number]
--- NOTE | 2018-06-29 22:31 | PDOC ---
Exam Note: Franki Note: Please also refer to the separate dictated note~for this date of service dictated separately.~Patient seen individually. Discussed the patient with Nursing staff reviewed the chart.~Reviewed interim history and current functioning. Reviewed vital signs,~Labs/ Radiology~and current medications noted below. Continue current treatment with the changes noted in the dictated addendum note Assessment: Vital Signs: Vital Signs Date Time Temp Pulse Resp B/P (MAP) Pulse Ox O2 Delivery O2 Flow Rate FiO2 06/29/18 20:53 96 06/29/18 16:48 98.1 66 20 118/88 (98) Room Air I&O Intake and Output 06/29/18 07:00 Intake Total 1560 ml Balance 1560 ml Intake Oral 1560 ml Current Medications: Meds: Current Medications Lactated Ringer's 1,000 ml @ 100 mls/hr Q10H IV ; Start 06/07/18 at 19:28; Stop 06/08/18 at 05:27; Status DC Acetaminophen (Tylenol) 650 mg PRN Q6HRS PRN PO PAIN / TEMP Last administered on 06/24/18at 21:37; Start 06/08/18 at 00:30 Multi-Ingredient Ointment (Analgesic [place]) 1 jesse PRN QID PRN TP MUSCLE PAIN; Start 06/08/18 at 00:30 Al Hydroxide/Mg Hydroxide (Mylanta Plus Xs) 15 ml PRN AFTMEALHC PRN PO DYSPEPSIA; Start 06/08/18 at 00:30 Magnesium Hydroxide (Milk Of Magnesia) 2,400 mg PRN QHS PRN PO CONSTIPATION; Start 06/08/18 at 00:30 Olanzapine (ZyPREXA ZYDIS) 5 mg QHS PO Last administered on 06/29/18at 19:42; Start 06/08/18 at 21:00 Donepezil HCl (Aricept) 5 mg QHS PO Last administered on 06/29/18 19:43; Start 06/08/18 at 21:00 Duloxetine HCl (Cymbalta) 60 mg DAILY PO Last administered on 06/29/18at 07:56; Start 06/08/18 at 09:00 Oxycodone HCl (Roxicodone) 5 mg PRN Q6HRS PRN PO MODERATE PAIN Last administered on 06/29/18at 20:53; Start 06/08/18 at 01:15 Atorvastatin Calcium (Lipitor) 20 mg QHS PO Last administered on 06/29/18 19: 42; Start 06/08/18 at 21:00 Carbidopa/Levodopa (Sinemet 25/100) 1 tab QID PO Last administered on 19:42; Start 06/08/18 at 09:00 Gabapentin (Neurontin) 100 mg TID PO Last administered on 06/29/18 19:42; Start 06/08/18 at 09:00 Ketorolac Tromethamine (Acular) 1 drop DAILY OS Last administered on 06/29/18 07:58; Start 06/08/18 at 09:00 Prednisolone Acetate (Pred Forte) 1 drop BID OS Last administered on 06/29/18 19:44; Start 06/08/18 at 09:00 Senna/Docusate Sodium (Senna Plus) 1 tab DAILY PO Last administered on 07:56; Start 06/08/18 at 09:00 Tamsulosin HCl (Flomax) 0.4 mg DAILY PO Last administered on 06/14/18 08:51; Start 06/08/18 at 09:00; Stop 06/14/18 at 16:05; Status DC Acetaminophen (Tylenol) 500 mg PRN Q6HRS PRN PO MILD PAIN Last administered on 06/22/18 08:12; Start 06/08/18 at 01:15 Aspirin (Children'S Aspirin) 81 mg DAILYWBKFT PO Last administered on 07:53; Start 06/08/18 at 08:00 Furosemide (Lasix) 40 mg DAILY PO Last administered on 06/29/18 07:55; Start 06/08/18 at 09:00 Guaifenesin/ Codeine Phosphate (Robitussin Ac) 10 ml PRN Q6HRS PRN PO COUGH Last administered on 06/29/18 20:53; Start 06/08/18 at 07:30 Meloxicam (Mobic) 7.5 mg DAILY PO Last administered on 06/29/18 07:53; Start 06/08/18 at 09:00 Multivitamins/ Calcium (Thera-M Plus) 1 tab DAILY PO Last administered on 07:55; Start 06/08/18 at 09:00 Polyethylene Glycol (miraLAX) 17 gm PRN DAILY PRN PO CONSTIPATION; Start 06/08 at 01:15 Polyethylene Glycol (miraLAX) 17 gm Q48H PO Last administered on 06/28/18 08: 22; Start 06/08/18 at 09:00; Stop 06/28/18 at 14:19; Status DC Spironolactone (Aldactone) 25 mg DAILY PO Last administered on 06/29/18 07:55 ; Start 06/08/18 at 09:00 Vitamin B Complex 1 cap DAILY PO Last administered on 06/29/18 07:56; Start 06/08/18 at 09:00 Vitamin D (Vitamin D3) 50,000 unit WEEKLY PO Last administered on 06/25/18 08: 23; Start 06/11/18 at 13:15 Olanzapine (ZyPREXA ZYDIS) 5 mg PRN Q8HRS PRN PO Agitation/Anxiety Last administered on 06/13/18at 17:54; Start 06/13/18 at 17:45 Tamsulosin HCl (Flomax) 0.8 mg DAILY PO Last administered on 06/29/18 07:55; Start 06/15/18 at 09:00 Buspirone HCl (Buspar) 5 mg BID@0900,1700 PO Last administered on 06/28/18at 08: 20; Start 06/20/18 at 17:00; Stop 06/28/18 at 11:57; Status DC Buspirone HCl (Buspar) 10 mg BID@0900,1700 PO Last administered on 06/29/18 17 :59; Start 06/28/18 at 17:00 Divalproex Sodium (Depakote Sprinkles) 125 mg TID@0900,1300,1700 PO Last administered on 06/29/18 17:59; Start 06/29/18 at 09:00 Oxybutynin Chloride (Ditropan) 2.5 mg [id number] PO Last administered on 06/29/18 19:44; Start 06/29/18 at 21:00 Active Scripts Active Reported Zyprexa Zydis (Olanzapine) 5 Mg Tab.rapdis 5 Mg PO QHS Vitamin B Complex 1 Each Tablet 1 Each PO DAILY Tamsulosin Hcl 0.4 Mg Cap.er.24h 0.4 Mg PO DAILY Spironolactone 25 Mg Tablet 25 Mg PO DAILY Sinemet 25-100 Mg Tablet (Carbidopa/Levodopa) 1 Each Tablet 1 Each PO QID Senna-Docusate Sodium Tablet (Sennosides/Docusate Sodium) 1 Each Tablet 1 Each PO DAILY Pred Forte (Prednisolone Acetate) 1 Ml Drops.susp 1 Ml OP BID Miralax (Polyethylene Glycol 3350) 17 Gm Powd.pack 17 Gm PO PRN DAILY PRN Oxycodone Hcl 5 Mg Capsule 5 Mg PO PRN Q6HRS PRN Multivitamins (Multivitamin) 1 Each Tablet 1 Each PO DAILY Miralax (Polyethylene Glycol 3350) 17 Gm Powd.pack 17 Gm PO Q48HRS Meloxicam 7.5 Mg Tablet 7.5 Mg PO DAILY Lasix (Furosemide) 40 Mg Tablet 40 Mg PO DAILY Nevanac (Nepafenac) 3 Ml Drops.susp 1 Drop OP DAILY Guaifenesin Ac Cough Syrup (Guaifenesin/Codeine Phosphate) 473 Ml Liquid 2 Tbs PO PRN Q6HRS PRN Gabapentin 100 Mg Capsule 100 Mg PO TID Cymbalta (Duloxetine Hcl) 60 Mg Capsule. 60 Mg PO DAILY Atorvastatin Calcium 20 Mg Tablet 20 Mg PO QHS Aspir-Low (Aspirin) 81 Mg Tablet. 81 Mg PO DAILY Aricept (Donepezil Hcl) 5 Mg Tablet 5 Mg PO QHS Acetaminophen 500 Mg Tablet 500 Mg PO PRN Q6HRS PRN I have reviewed the current psychotropics carefully including drug interactions. Risk benefit ratio favors no change other than as noted in my dictated progress note. Diagnosis: Problems: (1) Change in mental status (2) Anxiety disorder (3) Dementia in Alzheimer's disease with delusions (4) Dementia in Alzheimer's disease with depression (5) Lewy body dementia with behavioral disturbance (6) Impulse control disorder REYNALDO MONTERROSO MD Jun 29, 2018 22:31
[2018-06-30 05:48] VITALS: BP 124/78
[2018-06-30 06:29] LABS: BASO # 0.1 x10^3/uL (0.0-0.2); BASO % 1 % (0-3); EOS # 0.3 x10^3/uL (0.0-0.7); EOS % 4 % (0-3); HEMATOCRIT 38.7 % (39.0-53.0); HEMOGLOBIN 13.2 g/dL (13.0-17.5); LYMPH # 1.7 x10^3/uL (1.0-4.8); LYMPH % 20 % (24-48); MEAN CORPUSCULAR HEMOGLOBIN 34 pg (25-35); MEAN CORPUSCULAR HGB CONC 34 g/dL (31-37); MEAN CORPUSCULAR VOLUME 98 fL (79-100); MONO # 0.7 x10^3/uL (0.0-1.1); MONO % 8 % (0-9); NEUT # 5.7 x10^3uL (1.8-7.7); NEUT % 67 % (31-73); PLATELET COUNT 367 x10^3/uL (140-400); RED BLOOD COUNT 3.93 x10^6/uL (4.30-5.70); WHITE BLOOD COUNT 8.5 x10^3/uL (4.0-11.0)
[2018-06-30 06:50] LABS: ALBUMIN 3.4 g/dL (3.4-5.0); ALBUMIN/GLOBULIN RATIO 0.9 (1.0-1.7); CALCIUM 9.6 mg/dL (8.5-10.1); CREATININE 0.9 mg/dL (0.7-1.3); GFR 81.4; MAGNESIUM 2.2 mg/dL (1.8-2.4); POTASSIUM 4.4 mmol/L (3.5-5.1); TOTAL BILIRUBIN 0.5 mg/dL (0.2-1.0); TOTAL PROTEIN 7.1 g/dL (6.4-8.2)
[2018-06-30] MEDS: ASPIRIN 81 MG TAB.CHEW PO SCH (08:00)
[2018-06-30] MEDS: TAMSULOSIN 0.4 MG CAP.ER.24H. PO SCH (09:00)
[2018-06-30] MEDS: SENNOSIDES/DOCUSATE 8.6/50MG TABLET. PO SCH (09:00)
[2018-06-30] MEDS: SPIRONOLACTONE 25 MG TABLET PO SCH (09:00)
[2018-06-30] MEDS: DIVALPROEX 125 MG CAP.SPRINK PO SCH ×3 (09:00→17:22)
[2018-06-30] MEDS: MELOXICAM 7.5 MG TABLET PO SCH (09:00)
[2018-06-30] MEDS: KETOROLAC TROMETHAMINE 0.5% OPHTH SOLUTION 3ML BOTTLE. OS SCH (09:00)
[2018-06-30] MEDS: FUROSEMIDE 40 MG TABLET PO SCH (09:00)
[2018-06-30] MEDS: prednisoLONE ACETATE 1% OPHTH SUSPENSION 5ML BOTTLE. OS SCH ×2 (09:00→19:39)
[2018-06-30] MEDS: DULoxetine HCL 60 MG CAPSULE.DR PO SCH (09:00)
[2018-06-30] MEDS: VITAMIN B COMPLEX CAPSULE. PO SCH (09:00)
[2018-06-30] MEDS: MULTIVITAMIN with MINERAL TABLET. PO SCH (09:00)
[2018-06-30] MEDS: OXYBUTYNIN CHLORIDE 5 MG TABLET PO SCH ×3 (09:00→19:39)
[2018-06-30] MEDS: CARBIDOPA/LEVODOPA 25/100MG TABLET PO SCH ×4 (09:00→19:40)
[2018-06-30] MEDS: busPIRone 10 MG TABLET. PO SCH ×2 (09:00→17:22)
[2018-06-30] MEDS: GABAPENTIN 100 MG CAPSULE. PO SCH ×3 (09:00→19:40)
[2018-06-30 15:54] VITALS: BP 120/67
[2018-06-30] MEDS: ATORVASTATIN CALCIUM 20 MG TABLET PO SCH (19:39)
[2018-06-30] MEDS: DONEPEZIL HCL 5 MG TABLET. PO SCH (19:39)
--- NOTE | 2018-06-30 21:19 | PN ---
DATE: 06/30/2018 SUBJECTIVE: The patient was seen today, met with the staff, chart reviewed and also covering for Dr. Lagunas. The patient's behavior fluctuates. The patient was scheduled for discharge recently. Apparently, behavior got worse to the point they had to cancel his discharge. OBSERVATION: VITAL SIGNS: Temperature 96.3, blood pressure 124/78, pulse 58, respiration 18, O2 sat 96%. Slept about 7 hours last night. The patient's appetite normal. LABORATORY DATA: The patient's lab reviewed and medications reviewed. He is not having any major side effects. The patient has not had any falls. ASSESSMENT: Major neurocognitive disorder, most likely vascular with delusions, depression, impulse control disorder, unspecified. PLAN: To continue with the treatment. XAVI HALE MD DR: JAMAL/yovani JOB#: [id number] / [id number]
--- NOTE | 2018-06-30 22:25 | PN ---
DATE: 06/29/2018 This late entry for 06/29/2018 covers elements not covered in my initial note. SUBJECTIVE: I met with the patient in the evening. The patient has been urinating inappropriately and UA is probably reflective of UTI. We will defer to Dr. Flannery as this could well account for some of these symptoms noted with his inappropriate urination and sexualized behavior. He slept 7 hours previous evening. REVIEW OF SYSTEMS: Ambulation impaired, in wheelchair. No CV, , pulmonary, eye, ENT system symptoms on review. MENTAL STATUS EXAM: Oriented to himself and situation. Speech coherent, still somewhat pressured. Abstraction fair, computation impaired, language function intact, attention span short. Mood and affect remain somewhat labile. LABORATORY DATA: Reviewed. IMPRESSION: Major neurocognitive disorder, Alzheimer, vascular with delusion, depression, behavioral disturbance; anxiety disorder, unspecified; impulse control disorder, unspecified; probable urinary tract infection. PLAN: Continue current psychotropics. Depakote was initiated. Check labs level. Treat the UTI. Rest unchanged. MAN Rhona MONTERROSO MD DR: RAMIREZ/yovani JOB#: [id number] / [id number]
[2018-07-01 06:04] VITALS: BP 138/83
[2018-07-01 08:17] LABS: BASO # 0.1 x10^3/uL (0.0-0.2); BASO % 1 % (0-3); EOS # 0.2 x10^3/uL (0.0-0.7); EOS % 2 % (0-3); HEMATOCRIT 39.2 % (39.0-53.0); HEMOGLOBIN 13.4 g/dL (13.0-17.5); LYMPH # 1.4 x10^3/uL (1.0-4.8); LYMPH % 18 % (24-48); MEAN CORPUSCULAR HEMOGLOBIN 33 pg (25-35); MEAN CORPUSCULAR HGB CONC 34 g/dL (31-37); MEAN CORPUSCULAR VOLUME 98 fL (79-100); MONO # 0.6 x10^3/uL (0.0-1.1); MONO % 8 % (0-9); NEUT # 5.8 x10^3uL (1.8-7.7); NEUT % 72 % (31-73); PLATELET COUNT 374 x10^3/uL (140-400); RED BLOOD COUNT 4.01 x10^6/uL (4.30-5.70); RED CELL DISTRIBUTION WIDTH 14.1 % (11.5-14.5); WHITE BLOOD COUNT 8.1 x10^3/uL (4.0-11.0)
[2018-07-01 08:37] LABS: ALBUMIN 3.4 g/dL (3.4-5.0); ALBUMIN/GLOBULIN RATIO 0.9 (1.0-1.7); ALK PHOS 84 U/L (46-116); ALT (SGPT) 28 U/L (16-63); ANION GAP 6 (6-14); AST (SGOT) 20 U/L (15-37); BLOOD UREA NITROGEN 17 mg/dL (8-26); BUN/CREATININE RATIO 19 (6-20); CALCIUM 9.6 mg/dL (8.5-10.1); CARBON DIOXIDE 32 mmol/L (21-32); CHLORIDE 104 mmol/L (98-107); CREATININE 0.9 mg/dL (0.7-1.3); GFR 81.4; GLUCOSE 102 mg/dL (70-99); POTASSIUM 4.2 mmol/L (3.5-5.1); SODIUM 142 mmol/L (136-145); TOTAL BILIRUBIN 0.5 mg/dL (0.2-1.0); TOTAL PROTEIN 7.2 g/dL (6.4-8.2)
[2018-07-01 08:40] LABS: VAL ACID 12 mcg/mL (50-100)
[2018-07-01] MEDS: KETOROLAC TROMETHAMINE 0.5% OPHTH SOLUTION 3ML BOTTLE. OS SCH (08:57)
[2018-07-01] MEDS: VITAMIN B COMPLEX CAPSULE. PO SCH (08:57)
[2018-07-01] MEDS: prednisoLONE ACETATE 1% OPHTH SUSPENSION 5ML BOTTLE. OS SCH ×2 (08:57→19:49)
[2018-07-01] MEDS: ASPIRIN 81 MG TAB.CHEW PO SCH (08:57)
[2018-07-01] MEDS: SPIRONOLACTONE 25 MG TABLET PO SCH (08:58)
[2018-07-01] MEDS: DIVALPROEX 125 MG CAP.SPRINK PO SCH ×3 (08:58→16:49)
[2018-07-01] MEDS: busPIRone 10 MG TABLET. PO SCH ×2 (08:58→16:49)
[2018-07-01] MEDS: OXYBUTYNIN CHLORIDE 5 MG TABLET PO SCH ×3 (08:58→19:47)
[2018-07-01] MEDS: DULoxetine HCL 60 MG CAPSULE.DR PO SCH (08:58)
[2018-07-01] MEDS: CARBIDOPA/LEVODOPA 25/100MG TABLET PO SCH ×4 (08:59→19:48)
[2018-07-01] MEDS: FUROSEMIDE 40 MG TABLET PO SCH (08:59)
[2018-07-01] MEDS: GABAPENTIN 100 MG CAPSULE. PO SCH ×3 (08:59→19:48)
[2018-07-01] MEDS: MULTIVITAMIN with MINERAL TABLET. PO SCH (08:59)
[2018-07-01] MEDS: TAMSULOSIN 0.4 MG CAP.ER.24H. PO SCH (08:59)
[2018-07-01] MEDS: MELOXICAM 7.5 MG TABLET PO SCH (08:59)
[2018-07-01] MEDS: SENNOSIDES/DOCUSATE 8.6/50MG TABLET. PO SCH (08:59)
[2018-07-01 16:37] VITALS: BP 104/69
[2018-07-01] MEDS: ATORVASTATIN CALCIUM 20 MG TABLET PO SCH (19:47)
[2018-07-01] MEDS: DONEPEZIL HCL 5 MG TABLET. PO SCH (19:47)
--- NOTE | 2018-07-01 20:22 | PN ---
DATE: 07/01/2018 SUBJECTIVE: The patient was seen today, met with the staff, chart reviewed. Staff reports he was very irritable and hoffman, somewhat threatening towards the staff. Apparently, the patient settled down after few minutes. The patient is known to have these episodes if he is confronted or questioned about his line of thinking. The patient is most of the time pleasant. He interacts with the staff and the residents. The patient is aware of his surroundings. The patient is not depressed, but having mood swings and some irritability: OBSERVATION: VITAL SIGNS: Temperature 97.9, blood pressure 138/83, pulse 54, respirations 16, O2 sat 95%. Slept about 7 hours last night. The patient is not having any side effects to the medications. ASSESSMENT: 1. 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 2. Impulse control disorder, unspecified. PLAN: To continue with the treatment. XAVI HALE MD DR: JAMAL/yovani JOB#: [id number] / [id number]
[2018-07-02] MEDS ORDERED: DIVA125C2 PO ×2 (01:02→17:03)
[2018-07-02] MEDS ORDERED: CHOL500021 PO (01:06)
[2018-07-02] MEDS ORDERED: OLAN5TAB5 PO (01:12)
[2018-07-02] MEDS ORDERED: OXYB5TAB7 PO (01:15)
[2018-07-02] MEDS ORDERED: POLY2500 PO (01:17)
[2018-07-02] MEDS ORDERED: BUSP10TA PO (01:22)
[2018-07-02 06:06] VITALS: BP 157/74
[2018-07-02] MEDS ORDERED: LACTOBACILLUS RHAMNOSUS GG 1 CAPSULE. PO SCH (09:00)
[2018-07-02] MEDS ORDERED: AMOXICILLIN/K CLAV 500/125MG TABLET. PO SCH (09:00)
[2018-07-02] MEDS: ASPIRIN 81 MG TAB.CHEW PO SCH (09:02)
[2018-07-02] MEDS: DIVALPROEX 125 MG CAP.SPRINK PO SCH ×3 (09:03→14:38)
[2018-07-02] MEDS: VITAMIN B COMPLEX CAPSULE. PO SCH (09:03)
[2018-07-02] MEDS: SPIRONOLACTONE 25 MG TABLET PO SCH (09:03)
[2018-07-02] MEDS: DULoxetine HCL 60 MG CAPSULE.DR PO SCH (09:03)
[2018-07-02] MEDS: prednisoLONE ACETATE 1% OPHTH SUSPENSION 5ML BOTTLE. OS SCH (09:03)
[2018-07-02] MEDS: busPIRone 10 MG TABLET. PO SCH ×2 (09:03→17:00)
[2018-07-02] MEDS: KETOROLAC TROMETHAMINE 0.5% OPHTH SOLUTION 3ML BOTTLE. OS SCH (09:03)
[2018-07-02] MEDS: OXYBUTYNIN CHLORIDE 5 MG TABLET PO SCH ×3 (09:04→14:38)
[2018-07-02] MEDS: CARBIDOPA/LEVODOPA 25/100MG TABLET PO SCH ×4 (09:05→17:00)
[2018-07-02] MEDS: SENNOSIDES/DOCUSATE 8.6/50MG TABLET. PO SCH (09:05)
[2018-07-02] MEDS: TAMSULOSIN 0.4 MG CAP.ER.24H. PO SCH (09:05)
[2018-07-02] MEDS: GABAPENTIN 100 MG CAPSULE. PO SCH ×3 (09:05→14:38)
[2018-07-02] MEDS: FUROSEMIDE 40 MG TABLET PO SCH (09:05)
[2018-07-02] MEDS: MULTIVITAMIN with MINERAL TABLET. PO SCH (09:05)
[2018-07-02] MEDS: MELOXICAM 7.5 MG TABLET PO SCH (09:05)
[2018-07-02] MEDS: CHOLECALCIFEROL (VITAMIN D3) 50,000 UNIT CAPSULE PO SCH (09:05)
[2018-07-02 15:55] VITALS: BP 117/64
[2018-07-02] MEDS ORDERED: AMOX1TAB10 PO (16:55)
[2018-07-02] MEDS ORDERED: AMOX1TAB58 PO (16:56)
[2018-07-02] MEDS ORDERED: LACT1CAP19 PO (16:59)
[2018-07-02] MEDS ORDERED: DIVALPROEX 125 MG CAP.SPRINK PO SCH (21:00)
--- NOTE | 2018-07-03 02:36 | PN ---
DATE: 07/02/2018 SUBJECTIVE: The patient was seen today, met with the staff, and chart reviewed. Staff reports that patient has become very irritable, hoffman, threatening towards the staff and also verbally abusive towards the staff, unable to settle down and also getting paranoid, accusing the staff for hurting him and showed his nose. There was a scratch on his nose. The patient is irritable, hoffman, withdrawn, poor eye contact. The patient is known to have explosive temper like this before, but he was doing fairly well until the last couple of days. OBSERVATION: VITAL SIGNS: Temperature 97.1, blood pressure 157/74, pulse 52, respirations 18, O2 sat 97%, slept about 8 hours last night. His appetite is normal. CURRENT MEDICATIONS: Patient's current medications reviewed, not having any side effects. The patient continues to exhibit fluctuating symptoms. The patient was observed today that he pulled his catheter from his bladder and started bleeding and the patient was sent to [facility] for assessment. ASSESSMENT: 1. 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 2. Impulse control disorder, unspecified. PLAN: Continue with the treatment. XAVI HALE MD DR: JAMAL/yovani JOB#: [id number] / [id number]
[2018-07-03] MEDS ORDERED: DIVALPROEX 125 MG CAP.SPRINK PO SCH (09:00)
--- NOTE | 2018-07-03 23:09 | DS ---
DATE OF DISCHARGE: 07/02/2018 FINAL DIAGNOSES: AXIS I: 1. 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 2. Mood disorder, unspecified. 3. Impulse control disorder, not otherwise specified. AXIS II: None. AXIS III: Parkinson's disease, polyneuropathy, hypertension, obesity, and recent bleeding per urethra after he pulled out the catheter intentionally. REASON FOR ADMISSION: This is a 78-year-old male who was admitted to the inpatient program at [facility] from [facility], because of increased behavior problems, verbally aggressive towards staff, and also threatening to hit one of the staff with the pillow, throwing plates, and verbally abusive towards the staff and also verbally abusive to the other residents. HISTORY OF PRESENT ILLNESS: According to the information available, the patient was diagnosed with dementia with Lewy body disease and also treated for depression and he was living with his prior to moving to the [facility]. The patient was also seeing a Neurologist. The patient apparently underwent a full workup for dementia and also had a CT scan, which was within normal limits except for the cerebral atrophy and microvascular changes. The patient had difficulty with walking, but no falls. The patient recently became very paranoid and suspicious, the patient was accusing the staff not treating him nice, and the patient is also angry because everybody is stealing money from him. HOSPITAL COURSE: The patient had a physical exam. Routine lab work, including a CBC, Chem profile, and urine analysis, which are all within normal range except for an elevated blood sugar. The patient was enrolled in treatment, including individual therapy, group therapy, and activity therapy. Patient's medications included Depakote 250 mg daily and 375 mg at night, olanzapine 10 mg at night, BuSpar 10 mg b.i.d., olanzapine 5 mg q. 8 hours p.r.n., Lipitor 20 mg at night, Aricept 5 mg at night. The patient was also on Lasix 40 mg daily, Meloxicam 7.5 mg daily, gabapentin 100 t.i.d., Sinemet 25/100 q.i.d., Cymbalta 60 mg daily, and aspirin 81 mg daily. AFTERCARE PLANS: The patient was in the process of moving to a fci after stabilization, but the recent incident of pulling the catheter and the bleeding, the patient was sent to [facility] for further workup and treatment. MAKENNA NGUYEN MD DR: JAMAL/yovain JOB#: [id number] / [id number]
--- NOTE | 2018-07-04 16:23 | DS ---
DATE OF DISCHARGE: 07/02/2018 FINAL DIAGNOSES: AXIS I: 1. 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 2. Mood disorder, unspecified. 3. Impulse control disorder, not otherwise specified. AXIS II: None. AXIS III: Parkinson's disease, polyneuropathy, hypertension, obesity, and recent bleeding per urethra after he pulled out the catheter intentionally. REASON FOR ADMISSION: This is a 78-year-old male who was admitted to the inpatient program at the [facility] from [facility], because of increased behavior problems, verbally aggressive towards staff, and also threatening to hit one of the staff with the pillow, throwing plates, and verbally abusive towards the staff and also verbally abusive to the other residents. HISTORY OF PRESENT ILLNESS: According to the information available, the patient was diagnosed with dementia with Lewy body disease and also treated for depression and he was living with his prior to moving to the [facility]. The patient was also seeing a Neurologist. The patient apparently underwent a full workup for dementia and also had a CT scan, which was within normal limits except for the cerebral atrophy and microvascular changes. The patient had difficulty with walking, but no falls. The patient recently became very paranoid and suspicious, the patient was accusing the staff not treating him nice, and the patient is also angry because everybody is stealing money from him. HOSPITAL COURSE: The patient had a physical exam. Routine lab work, including a CBC, Chem profile, and urine analysis, which are all within normal range except for an elevated blood sugar. The patient was enrolled in treatment, including individual therapy, group therapy, and activity therapy. Patient's medications included Depakote 250 mg daily and 375 mg at night, olanzapine 10 mg at night, BuSpar 10 mg b.i.d., olanzapine 5 mg q. 8 hours p.r.n., Lipitor 20 mg at night, Aricept 5 mg at night. The patient was also on Lasix 40 mg daily, Meloxicam 7.5 mg daily, gabapentin 100 t.i.d., Sinemet 25/100 q.i.d., Cymbalta 60 mg daily, and aspirin 81 mg daily. AFTERCARE PLANS: The patient was in the process of moving to a skilled nursing after stabilization, but the recent incident of pulling the catheter and the bleeding, the patient was sent to [facility] for further workup and treatment. XAVI HALE MD DR: JAMAL/yovani JOB#: [id number] / [id number]
== END 2018-07-02 19:58 | disposition short-term general hospital (02) | DRG 57 ==
LOC: ER 19:09 → GEROPSY 23:26
PROVIDERS: ADMIT Psychiatry & Neurology Psychiatry; ATTEND Psychiatry & Neurology Psychiatry
DX: G30.9 Alzheimer's disease, unspecified (principal); F02.81 Dementia in other diseases classified elsewhere, unspecified severity, with behavioral disturbance; F01.51 Vascular dementia, unspecified severity, with behavioral disturbance; N39.0 Urinary tract infection, site not specified; G31.83 Neurocognitive disorder with Lewy bodies; G89.29 Other chronic pain; E66.9 Obesity, unspecified; G62.9 Polyneuropathy, unspecified; F63.9 Impulse disorder, unspecified; F32.9 Major depressive disorder, single episode, unspecified; E78.5 Hyperlipidemia, unspecified; F41.9 Anxiety disorder, unspecified; F44.4 Conversion disorder with motor symptom or deficit; I11.0 Hypertensive heart disease with heart failure; I50.9 Heart failure, unspecified; N40.1 Benign prostatic hyperplasia with lower urinary tract symptoms; Z68.34 Body mass index [BMI] 34.0-34.9, adult; Z79.899 Other long term (current) drug therapy; Z99.3 Dependence on wheelchair; Z91.81 History of falling
CPT/HCPCS: 36415; 70450; 71045; 80048; 80053; 80061; 80076; 80164; 80307; 81001; 82306; 82550; 82607; 83036; 83540; 83550; 83690; 83735; 83880; 84436; 84443; 84480; 84484; 85025; 85610; 85651; 85730; 86592; 87086; 87186; 93005; P9612; 92610; 99285-25